=== PATIENT | male | born 1990 | race Caucasian/White ===

== ENCOUNTER 2020-03-01 10:09 | Emergency (ER) | payer BC, SELFPAY ==
[2020-03-01 10:11] VITALS: BP 148/100; PULSE 86; RESP 17; TEMP 36.8; O2SAT 100; BMI 22.4
--- NOTE | 2020-03-01 11:09 | HMH.EDWNDL ---
ED Disposition Clinical Impression: Abscess, Abscess of finger of right hand Disposition: Home, Self-Care Condition on Discharge: Good Instructions: DI for Laceration Repair Prescriptions: clindamycin HCL [Clindamycin HCl 300mg Cap] 300 mg PO Q6 10 Days #40 cap Prescription Printed Referrals: Ziyad Burton JR, MD [Primary Care Provider] - - Critical Care Critical Care Time: No Attestation: On 03/01/20, the high probability of a clinically significant, sudden or life threatening deterioration of the following system(s) required my full and direct attention, intervention and personal management. The time I documented below is in addition to time spent performing reported procedures but includes the following listed in this critical care notation. Medical Decision Making - Medical Records Medical records reviewed: Yes: I reviewed the patient's medical records. - Chas Inquiry Pt receiving controlled substance: No Vital Signs: 03/01/20 10:11 Temperature 98.2 F Temperature Source Oral Pulse Rate [Right] 86 Respiratory Rate 17 Blood Pressure [Right Arm] 148/100 H Blood Pressure Mean [Right Arm] 116 02 Sat by Pulse Oximetry 100 Wound/Laceration HPI - General Chief Complaint: Wound/Laceration Stated Complaint: right ring finger Time Seen by Provider: 03/01/20 11:10 Mode of Arrival: Ambulatory Source of Information: Patient Limitations: No Limitations Description of Symptoms (Recalled from ER Triage Doc. by RN): Wound to the right ring finger x1 week, states it has been draining and increased pain for the past few days. - History of Present Illness HPI narrative: 29-year-old male comes with an abscess on his right index finger. Patient states that it started about 2 to 3 days ago and has swollen. Patient denies any other symptoms. He does state the pain is about 2 out of 10 classifies the pain as a pressure-like sensation there are no alleviating factors exacerbating factors include any sort of movement. Patient denies any fever shakes or chills. Patient denies any nausea or vomiting. - Related Data Previous Rx's Medication Instructions Recorded clindamycin HCL [Clindamycin HCl 300 mg PO Q6 10 Days #40 cap 03/01/20 300mg Cap] Allergies Allergy/AdvReac Type Severity Reaction Status Date / Time No Known Allergies Allergy Unverified 07/09/17 15:17 [facility] History - Hepatitis A Screen Drug use history?: No High risk sexual behaviors?: No History of sexually transmitted infection?: No Currently employed?: No Childcare worker?: No Do you have indoor plumbing?: Yes Do you have electricity?: Yes Attestation statement:: This patient has been screened for Hepatitis A risk factors. I have reviewed the patient's past medical history: Yes ROS Obtained: Yes All systems reviewed & no additional complaints - Constitutional Constitutional: Reports system reviewed and no additional complaints, except as docu - Eyes Eyes: Reports system reviewed and no additional complaints, except as docu - ENT Ears, Nose, Mouth, and Throat: Reports system reviewed and no additional complaints, except as docu - Cardiovascular Cardiovascular: Reports system reviewed and no additional complaints, except as docu - Respiratory Respiratory: Yes system reviewed and no additional complaints, except as docu - Gastrointestinal Gastrointestingal: Reports: system reviewed and no additional complaints, except as docu - Genitourinary Male Genitourinary: Reports system reviewed and no additional complaints, except as docu - Musculoskeletal Musculoskeletal: Reports system reviewed and no additional complaints, except as docu - Integumentary/Breasts Skin/Breast: Reports system reviewed and no additional complaints, except as docu - Neurologic Neurologic: Reports system reviewed and no additional complaints, except as docu - Endocrine Endocrine: Reports system reviewed and no additiona
[2020-03-01 11:23] VITALS: BP 127/80; PULSE 70; RESP 16; TEMP 36.8; O2SAT 100
== END 2020-03-01 11:24 | disposition home or self-care (01) ==
PROVIDERS: Emergency Provider Family Medicine; PCP Pediatrics
DX: L02.511 Cutaneous abscess of right hand (principal)
CPT/HCPCS: 10060; 99282

== ENCOUNTER 2020-05-26 13:20 | Inpatient (IN) | payer BC, SELFPAY ==
[2020-05-26] VITALS (14 sets, daily range): BP systolic 100–169; BP diastolic 73–105; PULSE 78–135; RESP 16–22; TEMP 36.6–37; O2SAT 92–98; BMI 21.7; BMI 22.5
--- NOTE | 2020-05-26 13:44 | HMH.EDGENADL ---
ED Disposition Clinical Impression: Hyperglycemia, Dehydration, Nonadherence to medication Lower extremity weakness Qualifiers: Laterality: bilateral Qualified Code(s): R29.898 - Other symptoms and signs involving the musculoskeletal system Disposition: Admitted As Inpatient Condition on Discharge: Good - Critical Care Critical Care Time: No Attestation: On 05/26/20, the high probability of a clinically significant, sudden or life threatening deterioration of the following system(s) required my full and direct attention, intervention and personal management. The time I documented below is in addition to time spent performing reported procedures but includes the following listed in this critical care notation. Medical Decision Making - Medical Records Medical records reviewed: Yes: I reviewed the patient's medical records. - Chas Inquiry Pt receiving controlled substance: No Vital Signs: 05/26/20 13:21 05/26/20 13:50 05/26/20 14:30 Temperature 98.6 F Temperature Source Oral Pulse Rate [Left Radial] 135 H 113 H 116 H Respiratory Rate 18 18 20 Blood Pressure [Right Arm] 125/84 132/90 159/98 H Blood Pressure Mean [Right Arm] 97 104 118 Blood Pressure Source [Right Arm] Automatic Cuff Automatic Cuff Blood Pressure Position [Right Arm] Sitting Sitting Sitting 02 Sat by Pulse Oximetry 95 92 L 96 Oxygen Delivery Method Room Air Room Air 05/26/20 15:47 Temperature Temperature Source Pulse Rate [Left Radial] 109 H Respiratory Rate 22 Blood Pressure [Right Arm] 133/73 Blood Pressure Mean [Right Arm] 93 Blood Pressure Source [Right Arm] Automatic Cuff Blood Pressure Position [Right Arm] Sitting 02 Sat by Pulse Oximetry 94 L Oxygen Delivery Method Room Air - Lab Data Lab results reviewed: Yes: I reviewed the patient's lab results. Lab Results 05/26/20 13:27: WBC 8.7, RBC 5.01, Hgb 14.4, Hct 45.6, MCV 91.0, MCH 28.7, MCHC 31.6 L, RDW 12.7, Plt Count 416, MPV 8.3, Neut % (Auto) 70.6, Lymph % (Auto) 23.2, Heard % (Auto) 4.9, Eos % (Auto) 0.8, Baso % (Auto) 0.4, Neut # (Auto) 6.1, Lymph # (Auto) 2.0, Heard # (Auto) 0.4, Eos # (Auto) 0.1, Baso # (Auto) 0.0 05/26/20 13:27: Sodium 135 L, Potassium 4.0, Chloride 95 L, Carbon Dioxide 15 L, Anion Gap 29.0 H, BUN 18, Creatinine 1.20, Estimated Creat Clear 93, Estimated GFR 72, Est GFR ( Amer) 87, Glucose 474 H*, Calcium 10.1, Total Bilirubin 1.0, AST 31, ALT 23, Alkaline Phosphatase 196 H, Total Protein 7.8, Albumin 4.5, Globulin 3.3 H, Albumin/Globulin Ratio 1.4 05/26/20 13:27: SARS-CoV-2 IgG Ab (Rapid) Negative, SARS-CoV-2 IgM Ab (Rapid) Negative 05/26/20 13:57: Acetone Level Small 05/26/20 14:15: Specimen Source Left radial, O2 % room air, ABG pH 7.43, ABG pCO2 17.9 L, ABG pO2 121.2 H, ABG HCO3 11.6 L, ABG Total CO2 12.2 L, ABG O2 Saturation 98, ABG Base Excess -12.7 L, Jimmie Test Acceptable Result diagrams: 05/26/20 13:27 05/26/20 13:27 Orders (Tests/Meds): ED MEDICATIONS Generic Name Dose Route Start Last Admin Trade Name Freq PRN Reason Stop Dose Admin Insulin Human Regular 100 unit 101 mls @ 4.04 mls/hr 05/26/20 14:30 05/26/20 14:40 / Sodium Chloride IV 06/25/20 14:29 4.04 mls/hr .Q25H LENA Administration Protocol 4 UNIT/HR Discontinued Medications Generic Name Dose Route Start Last Admin Trade Name Freq PRN Reason Stop Dose Admin Sodium Chloride 1,000 mls @ 999 mls/hr 05/26/20 13:45 05/26/20 14:40 Sod Chlor 0.9% 1000ml Bag IV 05/26/20 14:45 999 mls/hr .Q1H1M LENA Administration Insulin Human Regular 10 unit 05/26/20 14:13 05/26/20 14:24 Insulin Human Regular 100 Units/Ml 10ml Vial IVP 05/26/20 14:14 Not Given ONCE ONE Ketorolac Tromethamine 30 mg 05/26/20 15:27 05/26/20 15:28 Ketorolac 30mg/Ml Vial IV 05/26/20 15:28 30 mg ONCE ONE Administration Ondansetron HCl 4 mg 05/26/20 13:42 05/26/20 14:40 Ondansetron 4mg/2ml Vial IV 05/26/20 13:43 4 mg ONCE ONE Administration
[2020-05-26 14:01] LABS: Basophils % 0.4 % (0.1-2.0); Eosinophils # 0.1 K/mm3 (0.0-0.4); Eosinophils % 0.8 % (0.1-12.0); Hematocrit 45.6 % (42.0-52.0); Hemoglobin 14.4 g/dL (14.1-18.0); Lymphocytes % 23.2 % (10-50); Mean Corpuscular HGB Conc 31.6 g/dL (31.8-35.4); Mean Corpuscular Hemoglobin 28.7 pg (27.0-31.2); Mean Platelet Volume 8.3 fl (7.4-10.4); Monocytes # 0.4 K/mm3 (0.1-1.0); Monocytes % 4.9 % (1.7-9.3); Neutrophils # 6.1 K/mm3 (1.8-7.8); Neutrophils % 70.6 % (37.0-80.0); Platelet Count 416 K/mm3 (142-424); Red Blood Count 5.01 M/mm3 (4.60-6.20); Red Cell Distribution Width 12.7 % (11.5-17.5); White Blood Count 8.7 K/mm3 (4.8-10.8)
[2020-05-26 14:05] LABS: Alanine Aminotransferase 23 U/L (12-78); Albumin Level 4.5 g/dl (3.5-5.0); Albumin/Globulin Ratio 1.4 (1.1-1.8); Alkaline Phosphatase 196 U/L (38-126); Aspartate Amino Transferase 31 U/L (17-59); Blood Urea Nitrogen 18 mg/dl (9-20); Calcium 10.1 mg/dl (8.4-10.2); Carbon Dioxide 15 mmol/L (22.0-30.0); Chloride 95 mmol/L (98-107); Creatinine Clearance Estimated 93 mL/min (50-200); Estimated Glomerular Filt Rate 72 ml/min (>60); GFR (African American) 87 ML/MIN (>60); Globulin 3.3 g/dL (1.3-3.2); Sodium 135 mmol/L (136-145); Total Protein,Serum 7.8 g/dl (6.3-8.2)
[2020-05-26 14:09] LABS: Glucose 474 mg/dl (74-100)
[2020-05-26 14:27] LABS: Coronavirus 19 IgG Antibody Negative (Negative); Coronavirus 19 IgM Antibody Negative (Negative)
[2020-05-26 14:47] LABS: Acetone, Serum (Rapid) Small (None Detect)
[2020-05-26 15:03] LABS: ABG Base Excess -12.7 mmol/L (-2.4-2.3); ABG HCO3 11.6 mmhg (22.0-26.0); ABG Oxygen Saturation 98 % (90-100); ABG PH 7.43 mmol/L (7.35-7.45); ABG PO2 121.2 mmhg (80-100); ABG TCO2 12.2 mmhg (23-27)
[2020-05-26 15:05] LABS: Allen's Test Acceptable; Oxygen room air %; Source Left Radial
[2020-05-26 15:06] LABS: ABG PCO2 17.9 mmhg (35.0-45.0)
--- NOTE | 2020-05-26 15:15 | PC.NURSE ---
Dr Hanson paged , to call back when out of room.
--- NOTE | 2020-05-26 15:35 | PC.NURSE ---
Call placed to [facility] for Dr Vang
--- NOTE | 2020-05-26 15:46 | PC.NURSE ---
placed call to [facility], awaiting Neurologist Dr Cadet
--- NOTE | 2020-05-26 16:35 | PC.NURSE ---
Dr Crooks spoke with Dr Osborne, he is to admit pt.
[2020-05-26 16:37] LABS: Microscopic, Urine URINE MICROSCOPIC (MICROSCOPIC)
[2020-05-26 16:41] LABS: Appearance,Urine CLEAR (Clear); Blood, Urine Negative (Negative); Color,Urine YELLOW (Yellow); Glucose,Urine (UA) 2+ (Negative); Ketones,Urine 3+ (Negative); Leukocyte Esterase,Urine Negative (Negative); Nitrate,Urine Negative (Negative); PH,Urine 5.5 (5.0-8.5); Protein,Urine Negative (Negative); Specific Gravity, Urine 1.025 (1.005-1.030); Urobilinogen,Urine 0.2 EU/dl (0.2)
[2020-05-26 16:43] LABS: Bilirubin,Urine Negative (Negative)
[2020-05-26 16:51] LABS: RBC,Urine Occasional #/hpf (0-3); Squamous Epithelial Cell,Urine Occasional #/hpf (0-5)
[2020-05-26 16:53] LABS: Amphetamine/Metha Screen,Urine Negative ng/ml (<1000); Benzodiazepines Screen,Urine Negative ng/ml (<200)
[2020-05-26 16:54] LABS: Barbiturates Screen,Urine Negative ng/ml (<200)
[2020-05-26 16:55] LABS: Cocaine Screen,Urine Negative ng/ml (<300)
[2020-05-26 16:56] LABS: Methadone Screen,Urine Negative ng/ml (<300); Opiate Screen,Urine Negative ng/ml (<300)
[2020-05-26 16:57] LABS: Phencyclidine Screen,Urine Negative ng/ml (<25)
--- NOTE | 2020-05-26 18:00 | HMH.HP ---
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 He states it started last night. His fingerstick was high per EMS and patient admits to not taking his insulin today because he has some issues going on . Patient denies any recent falls or trauma. No recent illnesses including fevers, cough, vomiting, diarrhea. He denies any drug or alcohol use. When he had Guillain-Sampson? before he received plasmapheresis, but full therapy was not complete, for unclear reasons. This was at [facility]. Patient denies any headache or neck pain. No difficulty breathing. Above note per emergency department. Patient is extremely worried about the possibility of Guillain-Sampson? syndrome coming back because of some right hip pain and inability to move his lower extremities. Exam in the emergency department was very inconsistent with Guillain-Sampson? and he has no issues with respiratory status. He follows with Dr. Dusty Burton in [place] since moving back to [place] 10 months ago. Found to have criteria for DKA in the ER and admitted to the stepdown unit for DKA therapy. [facility] History I have reviewed the patient's past medical history: Yes Medical History: Reports:: Diabetes Mellitus Type 1 (For 16 years) *Have you ever received a pneumonia vaccine?: No *Have you received a flu vaccine this season?: No Other Medical History: Reports: Other (Guillain-Sampson?) - *Social History Last grade of school completed: High school graduate Smoking Status: Current every day smoker Alcohol Intake Frequency:: a few times a month Substance Use Type: marijuana Last Used Substance: hours (ago) *Occupational Status:: other *Travel in the last 8 weeks: None Family Hx:: Unable to obtain Review of Systems - Review of Systems Review of systems:: pertinent systems reviewed and negative unless documented below Meds Home Medications Medication Instructions Recorded Confirmed Type Insulin Regular, Human [Humulin R] 1 units SQ NEEDED PRN 05/26/20 05/26/20 History Allergies Allergy/AdvReac Type Severity Reaction Status Date / Time No Known Allergies Allergy Unverified 07/09/17 15:17 Exam Vital signs and Labs for Last 24 Hours: Temp Pulse Resp BP Pulse Ox 98 F 78 16 138/78 96 05/26/20 17:04 05/26/20 17:04 05/26/20 17:04 05/26/20 17:04 05/26/20 16:30 Laboratory Results - last 24 hr 05/26/20 13:27: WBC 8.7, RBC 5.01, Hgb 14.4, Hct 45.6, MCV 91.0, MCH 28.7, MCHC 31.6 L, RDW 12.7, Plt Count 416, MPV 8.3, Neut % (Auto) 70.6, Lymph % (Auto) 23.2, [place] % (Auto) 4.9, Eos % (Auto) 0.8, Baso % (Auto) 0.4, Neut # (Auto) 6.1, Lymph # (Auto) 2.0, [place] # (Auto) 0.4, Eos # (Auto) 0.1, Baso # (Auto) 0.0 05/26/20 13:27: Sodium 135 L, Potassium 4.0, Chloride 95 L, Carbon Dioxide 15 L, Anion Gap 29.0 H, BUN 18, Creatinine 1.20, Estimated Creat Clear 93, Estimated GFR 72, Est GFR ( Amer) 87, Glucose 474 H*, Calcium 10.1, Total Bilirubin 1.0, AST 31, ALT 23, Alkaline Phosphatase 196 H, Total Protein 7.8, Albumin 4.5, Globulin 3.3 H, Albumin/Globulin Ratio 1.4 05/26/20 13:27: SARS-CoV-2 IgG Ab (Rapid) Negative, SARS-CoV-2 IgM Ab (Rapid) Negative 05/26/20 13:57: Acetone Level Small 05/26/20 14:15: Specimen Source Left radial, O2 % room air, ABG pH 7.43, ABG pCO2 17.9 L, ABG pO2 121.2 H, ABG HCO3 11.6 L, ABG Total CO2 12.2 L, ABG O2 Saturation 98, ABG Base Excess -12.7 L, Jimmie Test Acceptable 05/26/20 16:30: Urine Opiates Screen Negative, Urine Methadone Screen Negative, Ur Barbituates Screen Negative, Ur Phencyclidine Scrn Negative, Ur Amphetamines Screen Negative, U Benzodiazepines Scrn Negative, Urine Cocaine Screen Negative, U Marijuana (THC) Screen TNP 05/26/20
[2020-05-26 18:14] LABS: Chloride 102 mmol/L (98-107); Sodium 138 mmol/L (136-145)
[2020-05-26 18:15] LABS: Potassium 3.8 mmoL/L (3.5-5.1)
[2020-05-26 18:17] LABS: Acetone, Serum (Rapid) Large (None Detect)
[2020-05-26 18:18] LABS: Anion Gap 21.8 mEq/L (5-15); Blood Urea Nitrogen 17 mg/dl (9-20); Calcium 9.4 mg/dl (8.4-10.2); Carbon Dioxide 18 mmol/L (22.0-30.0); Creatinine Clearance Estimated 93 mL/min (50-200); Estimated Glomerular Filt Rate 72 ml/min (>60); GFR (African American) 87 ML/MIN (>60); Glucose 184 mg/dl (74-100)
--- NOTE | 2020-05-26 19:13 | XR_ITS ---
PROCEDURE: XR HIP LT 2-3V W/PELVIS CLINICAL INDICATION: pain COMPARISON: CR XR HIP RT 2-3V W/PELVIS from 05/26/2020 FINDINGS: No fracture or dislocation is evident. No significant degenerative change. No lytic or blastic change. Unremarkable soft tissues. IMPRESSION: Negative left hip Dictated by: Jimmie Herrera MD 05/27/2020 05:16 Jimmie Herrera MD in [facility] 05/27/2020 05:16
--- NOTE | 2020-05-26 19:13 | XR_ITS ---
PROCEDURE: XR HIP RT 2-3V W/PELVIS CLINICAL INDICATION: pain COMPARISON: No exams were available for comparison FINDINGS: No fracture or dislocation is evident. No significant degenerative change. No lytic or blastic change. Unremarkable soft tissues. Small sclerotic focus is present in the left superior pubic ramus medially and may be due to small bone island. IMPRESSION: No acute findings. Dictated by: Jimmie Herrera MD 05/27/2020 05:17 Jimmie Herrera MD in [facility] 05/27/2020 05:17
--- NOTE | 2020-05-26 19:20 | XR_ITS ---
PROCEDURE: XR LUMBAR SPINE 2-3V CLINICAL INDICATION: pain in hips Pain COMPARISON: No exams were available for comparison FINDINGS: No fracture or dislocation. No lytic or blastic change. There is normal mineralization. The disc spaces are well-preserved. No significant degenerative/arthritic changes. No erosive changes evident. Other findings:Minimal lumbar curvature convex left possibly positional. IMPRESSION: Minimal lumbar curvature otherwise negative Dictated by: Jimmie Herrera MD 05/27/2020 05:04 Jimmie Herrera MD in [facility] 05/27/2020 05:04
--- NOTE | 2020-05-26 20:20 | PC.NURSE ---
This RN accompanied pt and radiology staff off floor for films.
--- NOTE | 2020-05-26 20:31 | PC.NURSE ---
patient off floor to CT.
--- NOTE | 2020-05-26 20:34 | PC.NURSE ---
PT IS RESTING IN BED. ALERT AND ORIENTED X4. DURING ADMISSION PT WAS ASKED WHAT BROUGHT HIM TO THE HOSPITAL. PT STATES HE HAS BEEN DOING REALLY WELL AT HOME AND WOKE UP THIS MORNING UNABLE TO WALK. PT WAS ABLE TO MANEUVER HIMSELF FROM STRETCHER TO BED W/O ASSISTANCE. PT WAS ABLE TO LIFT HIS OWN BLE WHILE SHIFTING OVER TO THE BED. INSULIN DRIP AT 4 UNITS/HR. LAST BLOOD SUGAR WAS 153. PT ATE 100% OF HIS DINNER AND STATED THAT WAS THE FIRST HE HAS ATE SINCE YESTERDAY. PT STATES THAT HE WAS LIVING IN [place] WITH HIS BIOLOGICAL MOM 10 MONTHS AGO WHEN HE WAS DIAGNOSED WITH GUILLAIN BARRE AND THEN MOVED BACK TO [place] WITH HIS SIGNIFICANT OTHER WHO HE HAS BEEN LIVING WITH FOR SEVERAL MONTHS. PT STATED THAT HIM AND HIS GIRLFRIEND JUST BROKE UP 4 DAYS AGO AND HE HAS BEEN LIVING IN THE SAME HOUSEHOLD EX GIRLFRIEND FOR THE LAST FEW DAYS WHILE SHE WAS NOT HOME BUT WHEN SHE COMES HOME HE HAS BEEN STAYING IN HIS CAR. PT STATED HE REALLY DOES NOT HAVE ANY FAMILY. PT HAS AN ADOPTED FAMILY BUT ACCORDING TO PT HIS ADOPTIVE PARENTS AND NOW HAVE FAMILIES OF THEIR OWN AND HE HAS NOT SPOKE TO THEM IN SOMETIME. PT STATES HE IS USUALLY REALLY HEALTHY OTHER THAN HE GOT DIAGNOSED AT A VERY YOUNG AGE WITH TYPE 1 DIABETES AND HE HAS DONE A REALLY DECENT JOB AT KEEPING IT UNDER CONTROL. PT STATES HIS LAST BOWEL MOVEMENT WAS YESTERDAY AND HE ALWAYS HAS LOOSE STOOLS. LUNG SOUNDS CLEAR. ABDOMEN SOFT/ NON TENDER WITH HYPERACTIVE BOWEL SOUNDS. PT STATES HE DOES NOT HAVE ANY ISSUES WITH URINATING. SKIN W/D/I WITH MULTIPLE TATTOOS NOTED. SINUS TACH ON THE MONITOR. REPORT HANDOFF TO CHIQUIS QUIROZ RN.
--- NOTE | 2020-05-26 20:47 | PC.NURSE ---
patient up to floor from CT.
[2020-05-26 21:46] LABS: Chloride 105 mmol/L (98-107); Sodium 139 mmol/L (136-145)
[2020-05-26 21:47] LABS: Potassium 3.5 mmoL/L (3.5-5.1)
[2020-05-26 21:50] LABS: Anion Gap 13.5 mEq/L (5-15); Blood Urea Nitrogen 19 mg/dl (9-20); Carbon Dioxide 24 mmol/L (22.0-30.0); Creatinine Clearance Estimated 97 mL/min (50-200); Estimated Glomerular Filt Rate 72 ml/min (>60); GFR (African American) 87 ML/MIN (>60); Glucose 100 mg/dl (74-100)
--- NOTE | 2020-05-26 22:23 | PC.NURSE ---
[address] PT AWAKE AND WATCHING TV. NO OTHER NEEDS VOICED. ICE WATER FILLED.
[2020-05-26 23:55] LABS: POC Glucose,Bedside 159 (70-110)
[2020-05-26 23:55] LABS: POC Glucose,Bedside 114 (70-110)
[2020-05-26 23:55] LABS: POC Glucose,Bedside 153 (70-110)
[2020-05-26 23:55] LABS: POC Glucose,Bedside 112 (70-110)
[2020-05-27] VITALS (10 sets, daily range): BP systolic 98–153; BP diastolic 50–78; PULSE 72–112; RESP 15–20; TEMP 36.4–37; O2SAT 95–100; BMI 22.6
[2020-05-27 01:45] LABS: Anion Gap 13.9 mEq/L (5-15); Blood Urea Nitrogen 16 mg/dl (9-20); Calcium 8.5 mg/dl (8.4-10.2); Carbon Dioxide 23 mmol/L (22.0-30.0); Chloride 106 mmol/L (98-107); Creatinine Clearance Estimated 106 mL/min (50-200); Estimated Glomerular Filt Rate 79 ml/min (>60); GFR (African American) 96 ML/MIN (>60); Glucose 161 mg/dl (74-100); Potassium 3.9 mmoL/L (3.5-5.1); Sodium 139 mmol/L (136-145)
[2020-05-27 02:47] LABS: POC Glucose,Bedside 118 (70-110)
[2020-05-27 02:47] LABS: POC Glucose,Bedside 189 (70-110)
--- NOTE | 2020-05-27 03:48 | PC.NURSE ---
Pt is A&Ox4 and has turned self in the bed several times this shift. Pt has c/o pain to r hip 1x, pt was offered Tylenol but refused. Pt has had not further c/o pain. Lungs CTA. ABD is soft, non-tender and active BS are noted. Pt moves lower extremities by hand when repositioning, pt states at times I think I can feel stings down them but not sure . BLE flaccid, as noted from admission. Peripheral pulses WNL, no edema noted t/o limbs. Skin intact, some very small scabs noted t/o body. 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 Pt refused TEDS. NSR and Sinus tach noted on telemetry. Pt has been voiding per urinal without difficultly. Insulin gtt stopped and Lantus SQ administered this shift per Dr. Osborne. As well as updating FS to ACHS with Medium Intensity SSI ([facility] Spot check at 0230 revealed FS 189, Dr. Osborne aware and no new orders. Pt has rested well t/o the night. VSS, call light within reach, and will continue to monitor.
[2020-05-27 06:07] LABS: Chloride 103 mmol/L (98-107); Sodium 134 mmol/L (136-145)
[2020-05-27 06:08] LABS: Potassium 4.5 mmoL/L (3.5-5.1)
[2020-05-27 06:11] LABS: Anion Gap 17.5 mEq/L (5-15); Blood Urea Nitrogen 15 mg/dl (9-20); Calcium 8.5 mg/dl (8.4-10.2); Carbon Dioxide 18 mmol/L (22.0-30.0); Creatinine Clearance Estimated 106 mL/min (50-200); Estimated Glomerular Filt Rate 79 ml/min (>60); GFR (African American) 96 ML/MIN (>60); Glucose 331 mg/dl (74-100)
[2020-05-27 06:42] LABS: Acetone, Serum (Rapid) Moderate (None Detect)
[2020-05-27 06:44] LABS: POC Glucose,Bedside 452 (70-110)
[2020-05-27 06:48] LABS: POC Glucose,Bedside 298 (70-110)
--- NOTE | 2020-05-27 07:36 | HMH.PHAVTE ---
[facility] Pharmacy VTE Monitoring - Patient Demographics Admission date: 05/26/20 Report Date: 05/27/20 Time: 07:36 Allergies/Adverse Reactions: Patient Allergies No Known Allergies Allergy (Unverified 07/09/17 15:17) Height: 1.83 m Weight: 75.92 kg Patient Problems: Current Active Problems Hyperglycemia (Acute) Dehydration (Acute) Nonadherence to medication (Acute) Lower extremity weakness (Acute) DKA, type 1 (Acute) Marijuana abuse, continuous (Acute) - VTE Risk Labs: VTE Related Lab Results Hgb 14.4 g/dL (14.1-18.0) 05/26/20 13:27 Hct 45.6 % (42.0-52.0) 05/26/20 13:27 Plt Count 416 K/mm3 (142-424) 05/26/20 13:27 BUN 15 mg/dl (9-20) 05/27/20 05:30 Creatinine 1.10 mg/dl (0.66-1.25) 05/27/20 05:30 Estimated Creat Clear 106 mL/min (50-200) 05/27/20 05:30 VTE Score: 1 - Prophylaxis VTE Prophylaxis Ordered?: Yes Types of VTE Prophylaxis: TEDS Knee High Location of Applied Device: Bilateral Lower Extremeties
--- NOTE | 2020-05-27 07:36 | HMH.PHAINT ---
MEDICATION RECONCILIATION COMPLETED ON PATIENT USING EXTERNAL FILL HISTORY FROM PHARMACY. -NGHIA MCKEON, HENRYD
--- NOTE | 2020-05-27 09:01 | FL_ITS ---
PROCEDURE: FL GUIDED LUMBAR PUNCTURE LP CLINICAL INDICATION: flacid lower extremities, Hx of G-B 10 mo ago, recurring Sx? COMPARISON: No exams were available for comparison TECHNIQUE: Informed consent was obtained prior to procedure. Under local anesthesia with 1% lidocaine and under fluoroscopic guidance a 20-gauge spinal needle was inserted into the L4-5 interspace. Approximately 14 cc of clear CSF was obtained and sent to laboratory for analysis. The patient tolerated the procedure well without evidence of immediate complication IMPRESSION: Successful fluoroscopy guided lumbar puncture without complications. Dictated by: Jimmie Herrera MD 05/27/2020 12:45 Jimmie Herrera MD in [facility] 05/27/2020 12:45
--- NOTE | 2020-05-27 09:06 | PC.NURSE ---
legs noted to be flaccid with movement. does jerk back and respond with object pushed down food
--- NOTE | 2020-05-27 09:39 | PC.NURSE ---
patient noted to have positive reflexes in legs. However, patient is unable to move legs and states they have no feeling. only pain noted is in hips and back
[2020-05-27 09:50] LABS: Chloride 103 mmol/L (98-107); Potassium 3.8 mmoL/L (3.5-5.1); Sodium 138 mmol/L (136-145)
--- NOTE | 2020-05-27 09:52 | PC.NURSE ---
spoke with dr augustin about lumbar puncture. radiology had called with questions. stated it was okay to order the cbc, and pt/ptt. also stated he did want the opening pressure. also stated with the lumbar puncture they are looking for gullian-barre. so he wanted the protein, glucose, and cell count on the csf.
[2020-05-27 09:53] LABS: Anion Gap 11.8 mEq/L (5-15); Blood Urea Nitrogen 14 mg/dl (9-20); Calcium 8.8 mg/dl (8.4-10.2); Carbon Dioxide 27 mmol/L (22.0-30.0); Creatinine Clearance Estimated 106 mL/min (50-200); Estimated Glomerular Filt Rate 79 ml/min (>60); GFR (African American) 96 ML/MIN (>60); Glucose 180 mg/dl (74-100)
[2020-05-27 10:02] LABS: Basophils % 0.4 % (0.1-2.0); Eosinophils # 0.1 K/mm3 (0.0-0.4); Eosinophils % 1.5 % (0.1-12.0); Lymphocytes # 2.4 K/mm3 (0.7-4.5); Lymphocytes % 29.2 % (10-50); Mean Corpuscular HGB Conc 32.9 g/dL (31.8-35.4); Mean Corpuscular Hemoglobin 29.5 pg (27.0-31.2); Mean Corpuscular Volume 89.8 fl (80-94); Mean Platelet Volume 8.3 fl (7.4-10.4); Monocytes # 0.3 K/mm3 (0.1-1.0); Neutrophils # 5.4 K/mm3 (1.8-7.8); Neutrophils % 64.9 % (37.0-80.0); Platelet Count 312 K/mm3 (142-424); Red Blood Count 4.34 M/mm3 (4.60-6.20); Red Cell Distribution Width 13.4 % (11.5-17.5); White Blood Count 8.3 K/mm3 (4.8-10.8)
[2020-05-27 10:18] LABS: Hemoglobin 12.8 g/dL (14.1-18.0)
[2020-05-27 10:22] LABS: Benzodiazepines Screen,Urine Negative ng/ml (<200)
[2020-05-27 10:23] LABS: Amphetamine/Metha Screen,Urine Negative ng/ml (<1000); Barbiturates Screen,Urine Negative ng/ml (<200)
[2020-05-27 10:24] LABS: Cannabinoid Screen,Urine Negative ng/ml (<50)
[2020-05-27 10:28] LABS: INR 0.98 (0.9-1.1); Prothrombin Time 10.9 seconds (9.4-11.8)
--- NOTE | 2020-05-27 11:06 | PC.NURSE ---
PATIENT OFF FLOOR FOR LUMBAR PUNCTURE
[2020-05-27 11:19] LABS: Cocaine Screen,Urine Negative ng/ml (<300)
[2020-05-27 11:20] LABS: Methadone Screen,Urine Negative ng/ml (<300); Opiate Screen,Urine Negative ng/ml (<300)
[2020-05-27 11:21] LABS: Phencyclidine Screen,Urine Negative ng/ml (<25)
--- NOTE | 2020-05-27 11:39 | HMH.PTEV ---
Physical Therapy Evaluation Rehab PT IP Evaluation Start: 05/27/20 09:01 Freq: ONCE Status: Active Protocol: Document 05/27/20 11:33 PHORRORY (Rec: 05/27/20 11:39 PHORNE [id number]) Subjective/History History History 29 yowm adm to [facility] with inability to feel/move his legs. 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 He is currently homeless. Subjective Subjective He reports pain in B hips and LB this am. Rehab PT IP Eval Objective Appearance Patient Behavior Appropriate Patient Orientation Person,Place,Time Difficulty following instructions none Speech Pattern Clear Ambulation Patient Able to Ambulate No Balance Ability to Arise Unable Sitting Balance Leans or slides in chair Dynamic Sitting Balance Ability Poor Transfers Bed Transfer Ability Maximum x 1 (75% assist) ROM All Extremities PT ROM Status WFL MMT LLE PT MMT ABN Abnormal MMT Grade 0/5 RLE PT MMT ABN Abnormal MMT Grade 0/5 Rehab PT IP prob,goals,plan Problems Date of Evaluation: 05/27/20 PT IP Problems Bed Mobility,Transfers Rehab Potential Rehab Potential Fair Plan PT Intervention Plan Bed Mobility,Transfers,Balance ,Therapeutic Exercise PT Plan Frequency Daily Duration LOS Discharge Goals Bed Transfer Ability Moderate x 2 (50% assist) Discharge Plan PT Discharge Plan Pt will likely need rehab placement once medically stable. G -code Required No Eval Complexity Eval Charge Codes 08685 - High Complexity PHYSICIAN CERTIFICATION: I certify the specified therapy services for Sunny Vivar are required, authorized, and reviewed every 30 days.
--- NOTE | 2020-05-27 12:11 | PC.NURSE ---
zena rutherford was at bedside to do assessment on patient however he refused to talk at this time because of pain. dr. dao office called and relayed to them that patient has been crying in pain since return from lumbar puncture. only pain medication is to oxycodone/percocet 5mg q8h prn. they stated they would let him know
[2020-05-27 12:13] LABS: POC Glucose,Bedside 197 (70-110)
[2020-05-27 12:26] LABS: Glucose,CSF 137 mg/dl (40-70)
[2020-05-27 12:51] LABS: Appearance,CSF Clear (Clear); Red Blood Cell,CSF 0 cells/uL (0); Volume,CSF 13.25 mL; White Blood Cell,CSF 2 cells/uL (0-5)
--- NOTE | 2020-05-27 13:14 | PC.NURSE ---
called back to md office about patient pain and to report a notification, they stated they would have md call back
--- NOTE | 2020-05-27 13:18 | MR_ITS ---
PROCEDURE: MR LUMBAR SPINE WO/W CON CLINICAL INDICATION: back pain, flaccid leg paralysis COMPARISON: No exams were available for comparison TECHNIQUE: Standard multiplanar multiecho sequences are performed without contrast. 3-D MIP and myelographic images are also rendered and reviewed FINDINGS: Normal alignment. The spinal cord ends at the L1 level. No disc herniation significant disc bulge or significant degenerative change evident. No foraminal or canal stenosis. There is mild prominence of the epidural fat at the L5 and S1 level and in the sacral area. This is of questionable clinical significance. There is a 4 mm T2 hyperintensity within the T12 vertebral body which is nonspecific and may be due to small hemangioma. No enhancing lesions are evident. IMPRESSION: 1. Essentially negative MRI of the lumbar spine 2. Prominent epidural fat at the L5 and sacral region of questionable clinical significance. Dictated by: Jimmie Herrera MD 05/27/2020 18:19 Jimmie Herrera MD in [facility] 05/27/2020 18:19
--- NOTE | 2020-05-27 13:18 | PC.NURSE ---
reported notification of patient csf protein. and relayed to md about patient pain. stated he would be placing orders in
--- NOTE | 2020-05-27 13:19 | HMH.ACPN2 ---
Internal Medicine - PN: Subj *Date: 05/27/20 *Time: 13:19 Interval history: 29-year-old male who presented with worsening weakness in his legs and DKA yesterday to the emergency room. On interview this morning he was pleasant and appeared to be feeling better. Gap closed overnight and was transitioned to basal bolus regimen. Reviewed labs from this morning. States he is having worsening back pain and hip pain however. Denies shortness of breath or chest pain. Is unable to move his toes or feet on command. Denies loss of bladder or bowel function at this time however. Afebrile, no headache or change in vision. Exam Vital signs and Labs for Last 24 Hours: Temp Pulse Resp BP Pulse Ox 98.6 F 91 H 15 117/72 98 05/27/20 09:04 05/27/20 08:00 05/27/20 08:00 05/27/20 08:00 05/27/20 08:00 Laboratory Results - last 24 hr 05/26/20 13:27: WBC 8.7, RBC 5.01, Hgb 14.4, Hct 45.6, MCV 91.0, MCH 28.7, MCHC 31.6 L, RDW 12.7, Plt Count 416, MPV 8.3, Neut % (Auto) 70.6, Lymph % (Auto) 23.2, Grayson % (Auto) 4.9, Eos % (Auto) 0.8, Baso % (Auto) 0.4, Neut # (Auto) 6.1, Lymph # (Auto) 2.0, Grayson # (Auto) 0.4, Eos # (Auto) 0.1, Baso # (Auto) 0.0 05/26/20 13:27: Sodium 135 L, Potassium 4.0, Chloride 95 L, Carbon Dioxide 15 L, Anion Gap 29.0 H, BUN 18, Creatinine 1.20, Estimated Creat Clear 93, Estimated GFR 72, Est GFR ( Amer) 87, Glucose 474 H*, Calcium 10.1, Total Bilirubin 1.0, AST 31, ALT 23, Alkaline Phosphatase 196 H, Total Protein 7.8, Albumin 4.5, Globulin 3.3 H, Albumin/Globulin Ratio 1.4 05/26/20 13:27: SARS-CoV-2 IgG Ab (Rapid) Negative, SARS-CoV-2 IgM Ab (Rapid) Negative 05/26/20 13:57: Acetone Level Small 05/26/20 14:15: Specimen Source Left radial, O2 % room air, ABG pH 7.43, ABG pCO2 17.9 L, ABG pO2 121.2 H, ABG HCO3 11.6 L, ABG Total CO2 12.2 L, ABG O2 Saturation 98, ABG Base Excess -12.7 L, Jimmie Test Acceptable 05/26/20 15:24: POC Glucose 452 H* 05/26/20 16:30: Urine Opiates Screen Negative, Urine Methadone Screen Negative, Ur Barbituates Screen Negative, Ur Phencyclidine Scrn Negative, Ur Amphetamines Screen Negative, U Benzodiazepines Scrn Negative, Urine Cocaine Screen Negative, U Marijuana (THC) Screen TNP 05/26/20 16:30: Urine Color Yellow, Urine Appearance Clear, Urine pH 5.5, Ur Specific Odum 1.025, Urine Protein Negative, Urine Glucose (UA) 2+, Urine Ketones 3+, Urine Blood Negative, Urine Nitrate Negative, Urine Bilirubin Negative, Urine Urobilinogen 0.2, Ur Leukocyte Esterase Negative, Urine RBC Occasional, Urine WBC None, Ur Squamous Epith Cells Occasional, Urine Bacteria None 05/26/20 17:51: Sodium 138, Potassium 3.8, Chloride 102, Carbon Dioxide 18 L, Anion Gap 21.8 H, BUN 17, Creatinine 1.20, Estimated Creat Clear 93, Estimated GFR 72, Est GFR ( Amer) 87, Glucose 184 H D, Calcium 9.4, Acetone Level Large 05/26/20 18:02: POC Glucose 159 H 05/26/20 19:20: POC Glucose 153 H 05/26/20 21:07: POC Glucose 114 H 05/26/20 21:30: Sodium 139, Potassium 3.5, Chloride 105, Carbon Dioxide 24 D, Anion Gap 13.5, BUN 19, Creatinine 1.20, Estimated Creat Clear 97, Estimated GFR 72, Est GFR ( Amer) 87, Glucose 100 D, Calcium 9.0 05/26/20 22:09: POC Glucose 112 H 05/27/20 00:17: POC Glucose 118 H 05/27/20 01:25: Sodium 139, Potassium 3.9, Chloride 106, Carbon Dioxide 23, Anion Gap 13.9, BUN 16, Creatinine 1.10, Estimated Creat Clear 106, Estimated GFR 79, Est GFR ([facility] Amer) 96, Glucose 161 H D, Calcium 8.5 05/27/20 02:22: POC Glucose 189 H 05/27/20 05:30: Sodium 134 L, Potassium 4.5, Chloride 103, Carbon Dioxide 18 L D, Anion Gap 17.5 H, BUN 15, Creatinine 1.10, Estimated Creat Clear 106, Estimated GFR 79, Est [facility]) 96, Glucose 331 H D, Calcium 8.5, Acetone Level Moderate 05/27/20 05:52: POC Glucose 298 H 05/27/20 09:35: Sodium 138, Potassium 3.8, Chloride 103, Carbon Dioxide 27 D, Anion Gap 11.8, BUN 14, Creatinine 1.10, Estimated Creat Clear 106, Estimated GFR 79, Est GFR [facility]) 96, Glucose 180 H D, Calcium
--- NOTE | 2020-05-27 14:04 | XR_ITS ---
PROCEDURE: XR ORBIT BILATERAL MIN 4V CLINICAL INDICATION: ORBIT XRAY PRIOR TO MRI COMPARISON: No exams were available for comparison TECHNIQUE: AP views are obtained of the orbits with the patient looking up and down. FINDINGS: No radio opaque foreign bodies evident. There is mucosal thickening of the lateral wall the left maxillary sinus IMPRESSION: No radio opaque orbital foreign body identified. Dictated by: Jimmie Herrera MD 05/28/2020 23:28 Jimmie Herrera MD in [place] 05/28/2020 23:28
--- NOTE | 2020-05-27 14:11 | PC.NURSE ---
pt to MRI at this time.
[2020-05-27 14:24] LABS: Mononuclear WBCs,CSF 0 %; Polynuclear WBCs,CSF 0 %
--- NOTE | 2020-05-27 16:31 | PC.NURSE ---
took down percocet for patient and radiology was unable to stop mri at that time. will give to him once to floor.
--- NOTE | 2020-05-27 16:59 | PC.NURSE ---
zena rutherford aprn did come back to check with patient but he was down in mri at that time
--- NOTE | 2020-05-27 17:03 | PC.NURSE ---
relayed to md patient is crying in pain red faced and screaming. toradol did not seem to help earlier and oxycodone was just given. md stated he would place orders in
--- NOTE | 2020-05-27 17:19 | PC.NURSE ---
Spoke with [facility], sent face sheet. Still no bed.
--- NOTE | 2020-05-27 17:46 | PC.NURSE ---
patient currently under a lot of stress with ef girlfriend. stated he has been getting messages from her and family and stated he was afraid now because he would be homeless once things have resolved. helped patient with emotions, and educated to currently focus on the issue at hand. he would be in the hospital for a bit longer and health at this time was important. he agreed that he wanted to focus on the issues at hand and blocked the ex and her family so he could focus on getting better. will continue to monitor patient and physical and mental well being
[2020-05-27 18:00] LABS: POC Glucose,Bedside 301 (70-110)
[2020-05-27 18:07] LABS: Acetone, Serum (Rapid) Small (None Detect)
--- NOTE | 2020-05-27 18:12 | PC.NURSE ---
Addendum entered by Gaby Pacheco RN 05/27/20 18:13: still awaiting for bed at [facility] last call noted to have no beds Original Note: patient day has been rough. noted to have pain. still reflexes noted on extremities but patient can not feel or move lower extremities himself. rings out as needed. no drainage noted to lumbar puncture site. turns self in bed. vitals have been stable. pain noted in back. md aware. will continue to monitor.
--- NOTE | 2020-05-27 18:39 | XR_ITS ---
PROCEDURE: XR THORACIC SPINE 2V CLINICAL INDICATION: thoracic spine pain COMPARISON: MR MR LUMBAR SPINE WO/W CON from 05/27/2020 FINDINGS: No fracture or dislocation. No lytic or blastic change. There is normal mineralization. The joint spaces are well-preserved. No significant degenerative/arthritic changes. No erosive changes evident. Other findings:None. IMPRESSION: No acute findings. Dictated by: Jimmie Herrera MD 05/28/2020 07:18 Jimmie Herrera MD in [facility] 05/28/2020 07:18
[2020-05-27 18:43] LABS: Chloride 99 mmol/L (98-107); Potassium 3.6 mmoL/L (3.5-5.1); Sodium 136 mmol/L (136-145)
[2020-05-27 18:46] LABS: Anion Gap 12.6 mEq/L (5-15); Blood Urea Nitrogen 13 mg/dl (9-20); Calcium 8.8 mg/dl (8.4-10.2); Carbon Dioxide 28 mmol/L (22.0-30.0); Creatinine Clearance Estimated 117 mL/min (50-200); Estimated Glomerular Filt Rate 88 ml/min (>60); GFR (African American) 107 ML/MIN (>60); Glucose 291 mg/dl (74-100)
--- NOTE | 2020-05-27 19:58 | PC.NURSE ---
PT ARRIVED VIA W/C TO FLOOR FROM ED W/STAFF AT 1954.
[2020-05-27 21:56] LABS: Chloride 100 mmol/L (98-107); Potassium 3.4 mmoL/L (3.5-5.1); Sodium 138 mmol/L (136-145)
[2020-05-27 21:59] LABS: Anion Gap 9.4 mEq/L (5-15); Blood Urea Nitrogen 12 mg/dl (9-20); Calcium 8.9 mg/dl (8.4-10.2); Carbon Dioxide 32 mmol/L (22.0-30.0); Creatinine Clearance Estimated 117 mL/min (50-200); Estimated Glomerular Filt Rate 88 ml/min (>60); GFR (African American) 107 ML/MIN (>60); Glucose 158 mg/dl (74-100)
[2020-05-27 22:07] LABS: POC Glucose,Bedside 122 (70-110)
[2020-05-28] VITALS: PULSE 90
[2020-05-28 02:48] LABS: POC Glucose,Bedside 167 (70-110)
[2020-05-28 04:00] VITALS: BP 137/78; PULSE 70; PULSE 83; RESP 16; TEMP 36.6; O2SAT 97
[2020-05-28 05:50] VITALS: BMI 22.9
[2020-05-28 06:00] LABS: Basophils % 0.3 % (0.1-2.0); Eosinophils # 0.2 K/mm3 (0.0-0.4); Eosinophils % 2.3 % (0.1-12.0); Hematocrit 39.4 % (42.0-52.0); Hemoglobin 13.2 g/dL (14.1-18.0); Lymphocytes # 3.7 K/mm3 (0.7-4.5); Lymphocytes % 41.3 % (10-50); Mean Corpuscular HGB Conc 33.4 g/dL (31.8-35.4); Mean Corpuscular Hemoglobin 30.3 pg (27.0-31.2); Mean Corpuscular Volume 90.6 fl (80-94); Mean Platelet Volume 7.8 fl (7.4-10.4); Monocytes # 0.4 K/mm3 (0.1-1.0); Monocytes % 4.8 % (1.7-9.3); Neutrophils # 4.6 K/mm3 (1.8-7.8); Neutrophils % 51.4 % (37.0-80.0); Platelet Count 302 K/mm3 (142-424); Red Blood Count 4.34 M/mm3 (4.60-6.20); Red Cell Distribution Width 13.4 % (11.5-17.5); White Blood Count 8.9 K/mm3 (4.8-10.8)
[2020-05-28 06:21] LABS: Magnesium 1.6 mg/dl (1.6-2.3)
--- NOTE | 2020-05-28 06:33 | PC.NURSE ---
Pt is A&Ox4 and has turned self in bed well t/o this shift. Pt has c/o pain 1x and medicated per MAR with effectiveness noted. Lungs CTA, pt denies any SOA or dyspnea. Room air sats 95-98% t/o shift. ABD is soft, flat, and non-tender. Pt reports he thinks he needs to have a BM and put offered bedpan but pt refused stating, I'll let you know when I'm ready to go . Pt has had a good appetite this shift. Voiding clear, ylw urine per urinal. Pt reports he does feel the urge of when to go and no urine leakage noted. Pt refused TEDS. BLE flaccid and pt reports he can't feel anywhere on thighs or legs. Pulses +2, no edema noted. Some mild muscle tremors by touch, flexeril administered per MAR. VSS, call light within reach, will continue to monitor.
[2020-05-28 06:37] LABS: POC Glucose,Bedside 145 (70-110)
--- NOTE | 2020-05-28 06:39 | PC.NURSE ---
Keena from [facility] called, stating they can not take pt at this time, We should have another nurse coming in this upcoming shift and we'll call back to let you know . Naa at [facility] called stating no beds a this time, maybe in the afternoon.
[2020-05-28 08:00] VITALS: BP 140/81; PULSE 70; PULSE 88; RESP 17; TEMP 36.7; O2SAT 97
--- NOTE | 2020-05-28 08:42 | HMH.DCSUM ---
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 He states it started last night. His fingerstick was high per EMS and patient admits to not taking his insulin today because he has some issues going on . Patient denies any recent falls or trauma. No recent illnesses including fevers, cough, vomiting, diarrhea. He denies any drug or alcohol use. When he had Guillain-Sampson? before he received plasmapheresis, but full therapy was not complete, for unclear reasons. This was at [facility]. Patient denies any headache or neck pain. No difficulty breathing. Above note per emergency department. Patient is extremely worried about the possibility of Guillain-Sampson? syndrome coming back because of some right hip pain and inability to move his lower extremities. Exam in the emergency department was very inconsistent with Guillain-Sampson? and he has no issues with respiratory status. He follows with Dr. Dusty Burton in [place] since moving back to [place] 10 months ago. Found to have criteria for DKA in the ER and admitted to the stepdown unit for DKA therapy. Hospital Course Hospital Course: Patient was admitted to stepdown unit, insulin drip and DKA protocol was followed and acetone levels and glucose levels improved, patient felt much better and his vital signs improved with normalized tachycardia rates. Unfortunately his neurologic exam did not improve and over the next 24 hours exhibited loss of reflexes in his patellar, ankle areas and some muscle cramping with lots of hip and back pain. MRI of lumbar spine was done to rule out structural or myelitis type issues and his MRI of his L-spine was unremarkable. Patient was given opioid pain medicine and muscle relaxers because of his severe pain which improved his situation. 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 Given our lack of inpatient neurology services tertiary care centers were contacted and patient was accepted in transfer. He will be transferred there today when nursing staff is available at the [facility]. Objective Vital signs: Temp Pulse Resp BP Pulse Ox 98.1 F 88 17 140/81 97 05/28/20 08:00 05/28/20 08:00 05/28/20 08:00 05/28/20 08:00 05/28/20 08:00 no acute distress, average body habitus Comments: Multiple tattoos on hands, arms, all professionally done - *Routine HEENT Exam Head: Present: normocephalic Eye: Present: EOMI, PERRL ENT: Present: mucous membranes moist - *Routine Neck Exam Present: supple - *Routine Respiratory Exam Present: CTA bilaterally - *Routine Cardiovascular Exam Present: RRR - *Routine Abdominal Exam Present: soft, normoactive bowel sounds. Absent: tenderness - *Routine Extremities Exam Absent: cyanosis, clubbing, edema Comments: Muscle spasm and pain when passive range of motion in the thighs and calves - *Routine Skin Exam Present: warm. Absent: rash - *Routine Neurological Exam Present: alert, oriented X3, CN II-XII intact Patient able to move upper extremities well, able to flex his torso and abdominal muscles. Has very minimal movement of any musculature below the hips and has absent patellar and ankle reflexes. - Detailed Eye Exam Eyelids: Bilateral normal inspection Results Labs on day of discharge: Labs from last 24 hours 05/28/20 05/28/20 05/28/20 06:09 05:25 05:25 WBC 8.9 RBC 4.34 L Hgb 13.2 L Hct 39.4 L MCV 90.6 MCH 30.3 MCHC 33.4 RDW 13.4 Plt Count 302 MPV 7.
[2020-05-28 08:46] LABS: Hemoglobin A1C 9.9 % (4.0-6.0)
--- NOTE | 2020-05-28 09:15 | PC.NURSE ---
[facility] called stating at this time they still had know beds available
[2020-05-28 11:23] LABS: POC Glucose,Bedside 283 (70-110)
--- NOTE | 2020-05-28 11:56 | PC.NURSE ---
[facility] called back stating hospital had had some movement/discharges. they would possibly be able to get a bed today but would keep us updated
[2020-05-28 12:00] VITALS: BP 138/85; PULSE 80; PULSE 85; RESP 18; TEMP 36.8; O2SAT 99
[2020-05-28 15:20] LABS: Adenovirus,PCR Not Detected (NotDetected); Bordetella Pertussis Not Detected (NotDetected); Chlamydophila Pneumoniae, PCR Not Detected (NotDetected); Coronavirus 19, PCR Not Detected (NotDetected); Coronavirus 229E Not Detected (NotDetected); Coronavirus NL63 Not Detected (NotDetected); Coronavirus OC43 Not Detected (NotDetected); Coronovirus HKU1,PCR Not Detected (NotDetected); Human Metapneumovirus Not Detected (NotDetected); Influenza A, PCR Not Detected (NotDetected); Influenza AH1, 2009 Not Detected (NotDetected); Influenza AH1, PCR Not Detected (NotDetected); Influenza AH3,PCR Not Detected (NotDetected); Influenza B, PCR Not Detected (NotDetected); Mycoplasma Pneumoniae, PCR Not Detected (NotDetected); Parainfluenza 1, PCR Not Detected (NotDetected); Parainfluenza 2, PCR Not Detected (NotDetected); Parainfluenza 3, PCR Not Detected (NotDetected); Parainfluenza 4, PCR Not Detected (NotDetected); Respiratory Syncytial Virus Not Detected (NotDetected); Rhinovirus/Enterovirus Not Detected (NotDetected)
[2020-05-28 16:00] VITALS: PULSE 70
--- NOTE | 2020-05-28 16:22 | PC.NURSE ---
called and gave report to [facility] in [place]. awaiting for covid swab. once obtained will call ambulance patient in stable position
--- NOTE | 2020-05-28 16:53 | PC.NURSE ---
relayed to [facility] that patient covid was negative and ambulance was being called now
[2020-05-28 17:25] LABS: POC Glucose,Bedside 124 (70-110)
== END 2020-05-28 17:28 | disposition short-term general hospital (02) | DRG 638 ==
LOC: ER 16:39 → 2ND 16:50
PROVIDERS: Admitting Provider Internal Medicine Adolescent Medicine; Emergency Provider Emergency Medicine; PCP Pediatrics; Visit Provider Internal Medicine Adolescent Medicine
DX: E10.10 Type 1 diabetes mellitus with ketoacidosis without coma (principal); G61.0 Guillain-Barre syndrome; Z72.0 Tobacco use; T38.3X6A Underdosing of insulin and oral hypoglycemic [antidiabetic] drugs, initial encounter; Z91.128 Patient's intentional underdosing of medication regimen for other reason
CPT/HCPCS: 36415; 62270; 70200; 72070; 72100; 72158; 73502; 76376; 80048; 80053; 80305; 81001; 82009; 82803; 82945; 82962; 83036; 83735; 84155; 85025; 85610; 85730; 86328; 87581; 87633; 87798; 89051; 96365; 96367; 96375; 97140; 97163; 99284; A9576; J2405

== ENCOUNTER → 2022-05-16 13:34 | Outpatient (CLI) | payer BC, SELFPAY ==
[2022-05-16 18:31] LABS: Basophils # 0.1 K/mm3 (0-0.2); Basophils % 1.2 % (0.1-2.0); Eosinophils # 0.1 K/mm3 (0.0-0.4); Eosinophils % 1.8 % (0.1-12.0); Hematocrit 46.4 % (42.0-52.0); Hemoglobin 15.3 g/dL (14.1-18.0); Lymphocytes # 2.5 K/mm3 (0.7-4.5); Lymphocytes % 36.2 % (10-50); Mean Corpuscular HGB Conc 32.9 g/dL (31.8-35.4); Mean Corpuscular Hemoglobin 29.6 pg (27.0-31.2); Mean Corpuscular Volume 89.9 fl (80-94); Mean Platelet Volume 10.5 fl (7.4-10.4); Monocytes # 0.5 K/mm3 (0.1-1.0); Monocytes % 6.5 % (1.7-9.3); Neutrophils # 3.8 K/mm3 (1.8-7.8); Neutrophils % 54.4 % (37.0-80.0); Platelet Count 384 K/mm3 (142-424); Red Blood Count 5.17 M/mm3 (4.60-6.20); Red Cell Distribution Width 12.9 % (11.5-17.5); White Blood Count 6.9 K/mm3 (4.8-10.8)
[2022-05-16 19:28] LABS: Alanine Aminotransferase 31 U/L (12-78); Albumin Level 4.6 g/dl (3.5-5.0); Albumin/Globulin Ratio 1.4 (1.1-1.8); Alkaline Phosphatase 189 U/L (38-126); Anion Gap 20.2 mEq/L (5-15); Aspartate Amino Transferase 31 U/L (17-59); Bilirubin,Total 0.5 mg/dl (0.2-1.3); Blood Urea Nitrogen 17 mg/dl (9-20); Calcium 9.6 mg/dl (8.4-10.2); Carbon Dioxide 28 mmol/L (22.0-30.0); Chloride 95 mmol/L (98-107); Chol/HDL Ratio 3.3 (1-3.5); Cholesterol 187 mg/dl (140-200); Estimated Glomerular Filt Rate 98 ml/min (>60); GFR (African American) 119 ML/MIN (>60); Globulin 3.2 g/dL (1.3-3.2); Glucose 143 mg/dl (74-100); HDL Cholesterol 57 mg/dl (40-60); Potassium 4.2 mmoL/L (3.5-5.1); Sodium 139 mmol/L (136-145); Total Protein,Serum 7.8 g/dl (6.3-8.2); Triglycerides 113 mg/dl (30-150); VLDL Cholesterol 23 mg/dL (0-40)
[2022-05-16 19:40] LABS: Free T4 (Free Thyroxine) 1.34 ng/dl (0.78-2.19)
[2022-05-16 19:43] LABS: 25-OH Vitamin D, Total 14.5 ng/mL (30-100)
[2022-05-16 20:01] LABS: Thyroid Stimulating Hormone 3.09 uIU/mL (0.465-4.68)
[2022-05-16 20:02] LABS: Hemoglobin A1C 10.3 % (4.0-6.0)
[2022-05-16 21:04] LABS: Direct LDL Cholesterol 108.87 mg/dL (100-129)
== END ==
PROVIDERS: PCP Emergency Medicine; Visit Provider Emergency Medicine
DX: E10.10 Type 1 diabetes mellitus with ketoacidosis without coma (principal); E55.9 Vitamin D deficiency, unspecified; Z79.4 Long term (current) use of insulin
CPT/HCPCS: 80053; 80061; 82306; 83036; 84439; 84443; 85025

== ENCOUNTER → 2022-10-12 13:57 | Outpatient (CLI) | payer BC, SELFPAY ==
[2022-10-12 13:26] LABS: Basophils % 0.6 % (0.1-2.0); Eosinophils # 0.2 K/mm3 (0.0-0.4); Eosinophils % 2.4 % (0.1-12.0); Hematocrit 44.7 % (42.0-52.0); Hemoglobin 15.3 g/dL (14.1-18.0); Lymphocytes # 2.6 K/mm3 (0.7-4.5); Lymphocytes % 39.5 % (10-50); Mean Corpuscular HGB Conc 34.2 g/dL (31.8-35.4); Mean Corpuscular Hemoglobin 29.1 pg (27.0-31.2); Mean Corpuscular Volume 85.1 fl (80-94); Mean Platelet Volume 9.5 fl (7.4-10.4); Monocytes # 0.4 K/mm3 (0.1-1.0); Monocytes % 5.6 % (1.7-9.3); Neutrophils # 3.4 K/mm3 (1.8-7.8); Platelet Count 319 K/mm3 (142-424); Red Blood Count 5.25 M/mm3 (4.60-6.20); Red Cell Distribution Width 12.8 % (11.5-17.5); White Blood Count 6.5 K/mm3 (4.8-10.8)
[2022-10-12 13:31] LABS: Alanine Aminotransferase 31 U/L (12-78); Albumin Level 4.4 g/dl (3.5-5.0); Albumin/Globulin Ratio 1.6 (1.1-1.8); Alkaline Phosphatase 102 U/L (38-126); Anion Gap 11.4 mEq/L (5-15); Aspartate Amino Transferase 37 U/L (17-59); Bilirubin,Total 0.5 mg/dl (0.2-1.3); Blood Urea Nitrogen 17 mg/dl (9-20); Calcium 8.9 mg/dl (8.4-10.2); Carbon Dioxide 27 mmol/L (22.0-30.0); Chloride 102 mmol/L (98-107); Cholesterol 176 mg/dl (140-200); Estimated Glomerular Filt Rate 98 ml/min (>60); GFR (African American) 119 ML/MIN (>60); Globulin 2.8 g/dL (1.3-3.2); Glucose 138 mg/dl (74-100); HDL Cholesterol 44 mg/dl (40-60); Potassium 4.4 mmoL/L (3.5-5.1); Sodium 136 mmol/L (136-145); Total Protein,Serum 7.2 g/dl (6.3-8.2); Triglycerides 99 mg/dl (30-150); VLDL Cholesterol 20 mg/dL (0-40)
[2022-10-12 13:42] LABS: Direct LDL Cholesterol 105.59 mg/dL (100-129)
[2022-10-12 13:47] LABS: T4 (Thyroxine) 6.8 ug/dl (5.53-11.0)
[2022-10-12 13:48] LABS: 25-OH Vitamin D, Total 29.5 ng/mL (30-100)
[2022-10-12 14:00] LABS: Thyroid Stimulating Hormone 1.64 uIU/mL (0.465-4.68)
[2022-10-12 15:52] LABS: Hemoglobin A1C 9.7 % (4.0-6.0)
== END ==
PROVIDERS: PCP Emergency Medicine; Visit Provider Emergency Medicine
DX: E11.9 Type 2 diabetes mellitus without complications (principal); E55.9 Vitamin D deficiency, unspecified; Z79.4 Long term (current) use of insulin
CPT/HCPCS: 80053; 80061; 82306; 83036; 84436; 84443; 85025

== ENCOUNTER 2022-10-25 10:25 | Emergency (ER) | payer BC, SELFPAY ==
[2022-10-25 10:30] VITALS: BP 143/93; PULSE 96; RESP 22; TEMP 36.4; O2SAT 99; BMI 21.6
--- NOTE | 2022-10-25 10:41 | XR_ITS ---
FINAL REPORT CLINICAL HISTORY: Pt states he coughed too hard x days ago, pain on inspiration @ anterior ribs @ level of T7 FINDINGS: RIGHT RIB SERIES Four views of the right ribs show no fractures. There is no pneumothorax or pleural fluid collection. Frontal chest radiograph demonstrates a new ovoid cavitary appearing lesion in the periphery of the left lung which measures 4.3 x 3.5 cm. The lungs are otherwise clear. The mediastinum appears unremarkable. IMPRESSION: No right rib fracture identified. No pneumothorax. New cavitary lesion in the left lung. Recommend infused thoracic CT for further evaluation. Reviewed, Interpreted and Dictated by Bull Saravia MD Transcribed by Martina To Authenticated and [facility]
--- NOTE | 2022-10-25 10:50 | EXP.UTC ---
Discharge Plan Disposition Patient Disposition: Home, Self-Care Condition: Good Prescriptions Prescriptions: New ibuprofen 600 mg tablet 600 mg PO Q6HP PRN (Reason: Moderate Pain) Qty: 20 0RF No Action (DME) Dexcom G6 Transmitter Device See Rx Instructions .Route Qty: 1 0RF Rx Instructions: As directed (DME) Dexcom G6 Sensor Device See Rx Instructions .Route Qty: 3 0RF Rx Instructions: As directed (DME) Dexcom G6 Invisible Braces Orthodontist Misc See Rx Instructions .Route Qty: 1 0RF Rx Instructions: As directed gabapentin 600 mg tablet 600 mg PO HS Qty: 30 2RF insulin regular human 100 unit/mL solution 10 - 15 unit SQ QID Qty: 10 3RF cholecalciferol (vitamin D3) 1,250 mcg (50,000 unit) capsule 1,250 mcg PO WEEKLY Qty: 14 2RF insulin glargine [Lantus U-100 Insulin] 100 unit/mL solution 20 unit SQ BID Label Comments: INJECT 30 UNITS SUBCUTANEOUSLY TWICE DAILY Referrals Follow up/Referrals: Ben Loja MD [Primary Care Provider] - See instructions Activity Restrictions/Add. Instructions Additional Instructions/Restrictions: Make sure to call your Family Doctor today for appointment and follow up as discussed Return if needed Straight To ER if any life threatening symptoms Make sure to take deep breaths Clinical Impressions Clinical Impression: Rib pain on right side Instructions Patient Instructions: Ibuprofen Discharge ED Provider: Deonna Long [facility] General Stated complaint: possible broken rib Mode of Arrival: Ambulatory Source of Information: Patient Limitations: No Limitations Time Seen by Provider: 10/25/22 10:50 Description of Symptoms (Recalled from Triage Doc. by RN): PATIENT C/O PAIN TO RIGHT RIB AREA FOR SEVERAL DAYS. HE DENIES INJURY, BUT REPORTS HE HAD BEEN COUGHING A LOT WHEN THE PAIN STARTED HEENT Symptoms (Recalled from RN notes): No Resp Symptoms (Recalled from RN notes): No Skin Symptoms (Recalled from RN notes): No MS Symptoms (Recalled from RN notes): Yes Functional Status (Recalled from RN notes): WNL History of Present Illness Provider Complaint: Patient states that he has been coughing alot and started having pain in his right ribs States that it has continued to get worse and now having pain with cough, movement and deep breath so he came in to get it checked Denies known injury States that not sure if he may have cracked a rib coughing or what Related Data Home Medications Medication Instructions Recorded Confirmed insulin glargine 100 unit/mL 20 unit SQ BID 10/12/22 10/12/22 subcutaneous solution (Lantus U-100 Insulin) Previous Rx's Medication Instructions Recorded insulin regular human 100 unit/mL 10 - 15 unit (0.1 - 0.15 mL) SQ 06/04/22 injection solution QID Diabetes #10 mL cholecalciferol (vitamin D3) 1,250 1,250 mcg PO WEEKLY #14 caps 06/05/22 mcg (50,000 unit) capsule blood-glucose meter,continuous #1 ea 10/12/22 (Dexcom G6 Invisible Braces Orthodontist) blood-glucose sensor (Dexcom G6 #3 ea 10/12/22 Sensor device) blood-glucose transmitter (Dexcom #1 ea 10/12/22 G6 Transmitter device) gabapentin 600 mg tablet 600 mg PO HS #30 tabs 10/12/22 ibuprofen 600 mg tablet 600 mg PO Q6HP PRN Moderate Pain 10/25/22 #20 tabs Allergies Allergy/AdvReac Type Severity Reaction Status Date / Time No Known Allergies Allergy Verified 10/12/22 11:26 Worker's Comp Is this a Worker's Comp case?: No PFSH [facility] Disclaimer: The information contained in this section may have been updated after the patient was seen, as this information can be updated by other users. Social History Smoking Status: Current every day smoker alcohol intake: never substance use type: marijuana current occupational status: other Travel in the last 8 weeks: None household members: friend(s) housing: house current occupational exposures/hazards: No caffeine:
[2022-10-25 12:35] VITALS: BP 143/93; PULSE 96; RESP 22; TEMP 36.4; O2SAT 99
== END 2022-10-25 13:19 | disposition home or self-care (01) ==
PROVIDERS: Emergency Provider Nurse Practitioner; PCP Emergency Medicine
DX: R07.81 Pleurodynia (principal); F17.210 Nicotine dependence, cigarettes, uncomplicated; E11.9 Type 2 diabetes mellitus without complications; Z79.4 Long term (current) use of insulin
CPT/HCPCS: 71101; 99212; 99214; G0463

== ENCOUNTER 2022-10-27 07:20 | Emergency (ER) | payer BC, SELFPAY ==
[2022-10-27 07:28] VITALS: BP 150/87; PULSE 120; RESP 20; TEMP 36.1; O2SAT 100; BMI 20.9
[2022-10-27 07:30] VITALS: BP 144/82; PULSE 109; RESP 16; O2SAT 99
--- NOTE | 2022-10-27 07:34 | PC.NURSE ---
FS 173
[2022-10-27 07:40] LABS: POC Glucose,Bedside 173 (70-110)
[2022-10-27 07:44] LABS: Basophils % 0.3 % (0.1-2.0); Eosinophils % 0.2 % (0.1-12.0); Hematocrit 46.5 % (42.0-52.0); Hemoglobin 15.5 g/dL (14.1-18.0); Lymphocytes # 1.9 K/mm3 (0.7-4.5); Lymphocytes % 15.4 % (10-50); Mean Corpuscular HGB Conc 33.2 g/dL (31.8-35.4); Mean Corpuscular Hemoglobin 28.7 pg (27.0-31.2); Mean Corpuscular Volume 86.4 fl (80-94); Mean Platelet Volume 8.9 fl (7.4-10.4); Monocytes # 0.5 K/mm3 (0.1-1.0); Monocytes % 3.8 % (1.7-9.3); Neutrophils % 80.4 % (37.0-80.0); Platelet Count 369 K/mm3 (142-424); Red Blood Count 5.39 M/mm3 (4.60-6.20); White Blood Count 12.5 K/mm3 (4.8-10.8)
[2022-10-27 07:49] LABS: Acetone, Serum (Rapid) None Detected (None Detect); Chloride 102 mmol/L (98-107); Potassium 4.1 mmoL/L (3.5-5.1); Sodium 142 mmol/L (136-145)
[2022-10-27 07:52] LABS: Alanine Aminotransferase 53 U/L (12-78); Albumin Level 4.8 g/dl (3.5-5.0); Albumin/Globulin Ratio 1.4 (1.1-1.8); Alkaline Phosphatase 108 U/L (38-126); Anion Gap 16.1 mEq/L (5-15); Aspartate Amino Transferase 48 U/L (17-59); Bilirubin,Total 0.8 mg/dl (0.2-1.3); Blood Urea Nitrogen 24 mg/dl (9-20); Carbon Dioxide 28 mmol/L (22.0-30.0); Creatinine Clearance Estimated 106 mL/min (50-200); Estimated Glomerular Filt Rate 87 ml/min (>60); GFR (African American) 105 ML/MIN (>60); Globulin 3.5 g/dL (1.3-3.2); Total Protein,Serum 8.3 g/dl (6.3-8.2)
[2022-10-27 07:53] LABS: Calcium 9.5 mg/dl (8.4-10.2); Glucose 158 mg/dl (74-100)
--- NOTE | 2022-10-27 07:59 | HMH.EDGENADL ---
Discharge Plan Disposition Patient Disposition: Home, Self-Care Condition: Fair Prescriptions Prescriptions: New metoclopramide HCl [Reglan] 10 mg tablet 10 mg PO Q6H PRN (Reason: nausea and vomiting) Qty: 14 0RF Rx Instructions: Take [id number] Benadryl, 25 mg, if you experience restlessness or fidgety when taking this medicine. No Action (DME) Dexcom G6 Transmitter Device See Rx Instructions .Route Qty: 1 0RF Rx Instructions: As directed (DME) Dexcom G6 Sensor Device See Rx Instructions .Route Qty: 3 0RF Rx Instructions: As directed (DME) Dexcom G6 Shoe Stainer Misc See Rx Instructions .Route Qty: 1 0RF Rx Instructions: As directed gabapentin 600 mg tablet 600 mg PO HS Qty: 30 2RF insulin regular human 100 unit/mL solution 10 - 15 unit SQ QID Qty: 10 3RF cholecalciferol (vitamin D3) 1,250 mcg (50,000 unit) capsule 1,250 mcg PO WEEKLY Qty: 14 2RF insulin glargine [Lantus U-100 Insulin] 100 unit/mL solution 20 unit SQ BID Label Comments: INJECT 30 UNITS SUBCUTANEOUSLY TWICE DAILY ibuprofen 600 mg tablet 600 mg PO Q6HP PRN (Reason: Moderate Pain) Qty: 20 0RF Referrals Follow up/Referrals: Ben Loja MD [Primary Care Provider] - See instructions Activity Restrictions/Add. Instructions Additional Instructions/Restrictions: Drink clear liquids by mouth for the next day or 2. Avoid solid foods. Once you tolerate liquids well, you may start advancing your diet slowly. Return to the emergency department immediately if you feel worse in any way. Follow-up with your primary care doctor in about 2 to 3 days if you do not feel better. Clinical Impressions Clinical Impression: Vomiting alone, Diabetes mellitus Instructions Patient Instructions: DI for Vomiting -- Adult Discharge ED Provider: Gigi Womack Adult [facility] General Chief complaint: Hyper/Hypoglycemia Stated complaint: diabetic, vomiting, pain Time Seen by Provider: 10/27/22 08:11 Mode of Arrival: Wheelchair Source of Information: Patient and Significant Other Limitations: No Limitations Description of Symptoms (Recalled from ER Triage Doc. by RN): Presents via POV d/t n/v & sweats that started last night. Pt states he is concerned for DKA. Hx of DM I, Rx Novolin R and Lantus. History of Present Illness HPI narrative: Patient presents to the emergency department complaining of nausea and vomiting since last night. He is a known type I diabetic. He denies any diarrhea. Denies any fevers. He and his girlfriend ate the same food yesterday. She has no symptoms. Patient states that his home glucometer is not functioning properly. He did, however, take his regular insulin doses. Related Data Home Medications Medication Instructions Recorded Confirmed insulin glargine 100 unit/mL 20 unit SQ BID 10/12/22 10/12/22 subcutaneous solution (Lantus U-100 Insulin) Previous Rx's Medication Instructions Recorded insulin regular human 100 unit/mL 10 - 15 unit (0.1 - 0.15 mL) SQ 06/04/22 injection solution QID Diabetes #10 mL cholecalciferol (vitamin D3) 1,250 1,250 mcg PO WEEKLY #14 caps 06/05/22 mcg (50,000 unit) capsule blood-glucose meter,continuous #1 ea 10/12/22 (Dexcom G6 Shoe Stainer) blood-glucose sensor (Dexcom G6 #3 ea 10/12/22 Sensor device) blood-glucose transmitter (Dexcom #1 ea 10/12/22 G6 Transmitter device) gabapentin 600 mg tablet 600 mg PO HS #30 tabs 10/12/22 ibuprofen 600 mg tablet 600 mg PO Q6HP PRN Moderate Pain 10/25/22 #20 tabs metoclopramide HCl 10 mg tablet 10 mg PO Q6H PRN nausea and 10/27/22 (Reglan) vomiting #14 tabs Allergies Allergy/AdvReac Type Severity Reaction Status Date / Time metoclopramide AdvReac Anxiety Verified 10/27/22 08:30 [facility] Disclaimer: The information contained in this section may have been updated after the patient was seen, as this information can be updated by other
[2022-10-27 08:00] VITALS: BP 143/77; PULSE 100; RESP 18; O2SAT 96
[2022-10-27 08:05] VITALS: BP 143/77; PULSE 115; RESP 20; O2SAT 98
[2022-10-27 08:17] LABS: Lipase 78 U/L (23-300)
--- NOTE | 2022-10-27 08:27 | PC.NURSE ---
Pt became extremely anxious after Reglan. PIV removed via self accidently. New 18g PIV inserted to LAC. Benadryl 25mg IV administered.
--- NOTE | 2022-10-27 08:36 | PC.NURSE ---
Oral Sprite provided. Improvement noted.
[2022-10-27 09:18] VITALS: BP 118/72; PULSE 92; RESP 16; TEMP 36.1; O2SAT 98
== END 2022-10-27 09:19 | disposition home or self-care (01) ==
PROVIDERS: Emergency Provider Emergency Medicine; PCP Emergency Medicine
DX: R11.10 Vomiting, unspecified (principal); E10.9 Type 1 diabetes mellitus without complications
CPT/HCPCS: 80053; 82009; 82962; 83690; 85025; 96360; 96374; 96375; 99284; 99285; J2405

== ENCOUNTER 2022-10-28 02:02 | Emergency (ER) | payer BC, SELFPAY ==
[2022-10-28] VITALS (9 sets, daily range): BP systolic 121–153; BP diastolic 66–96; PULSE 86–110; RESP 16; TEMP 36.6–36.8; O2SAT 95–98; BMI 20.9
--- NOTE | 2022-10-28 02:31 | CT_ITS ---
PROCEDURE INFORMATION: Exam: CT Abdomen And Pelvis With Contrast Exam date and time: 10/28/2022 3:09 AM Age: 31 years old Clinical indication: Abdominal pain; Additional info: Abd pain TECHNIQUE: Imaging protocol: Computed tomography of the abdomen and pelvis with contrast. Radiation optimization: All CT scans at this facility use at least one of these dose optimization techniques: automated exposure control; mA and/or kV adjustment per patient size (includes targeted exams where dose is matched to clinical indication); or iterative reconstruction. Contrast material: ISOVUE; Contrast volume: 75 ml; Contrast route: IV; REPORTING DATA: Count of CT and Cardiac NM exams in prior 12 months: This patient has received 0 known CTs and 0 known cardiac nuclear medicine studies in the 12 months prior to the current study. COMPARISON: ABDPELW CT ABD PELVIS W/ CONTRAST 01/01/2017 2:16 PM FINDINGS: Liver: < 1.0 cm hypodense lesion. Gallbladder and bile ducts: No calcified stones. No ductal dilation. Pancreas: Unremarkable. No ductal dilation. Spleen: No splenomegaly. Adrenal glands: No mass. Kidneys and ureters: 1.2 cm hyperdense or enhancing lesion within LEFT kidney, indeterminate by CT criteria. No significant hydronephrosis. Stomach and bowel: No definite mural thickening. No obstruction. Appendix: Appendectomy. Intraperitoneal space: No significant fluid collection. No definite free air. Vasculature: Unremarkable. No aneurysm. Lymph nodes: No pathologically enlarged lymph nodes. Urinary bladder: Apparent mild bladder wall thickening. Incomplete distention, limiting evaluation. Reproductive: Unremarkable as visualized. Bones/joints: Probable bone islands. No acute fracture. Soft tissues: Unremarkable. IMPRESSION: 1. Cystitis vs underdistention. Correlate with urinalysis. 2. LEFT kidney lesion, incompletely characterized. Recommend nonemergent MRI. 3. Liver lesion. In a low-risk patient, this lesion is most likely to be benign and no further follow-up is recommended. In a high-risk patient, recommend follow-up MRI in 3-6 months (or earlier if warranted by the patient's specific clinical circumstances).
[2022-10-28 02:41] LABS: Basophils % 0.3 % (0.1-2.0); Eosinophils % 0.2 % (0.1-12.0); Hematocrit 44.4 % (42.0-52.0); Hemoglobin 14.4 g/dL (14.1-18.0); Lymphocytes # 2.2 K/mm3 (0.7-4.5); Lymphocytes % 17.3 % (10-50); Mean Corpuscular HGB Conc 32.4 g/dL (31.8-35.4); Mean Corpuscular Hemoglobin 28.5 pg (27.0-31.2); Mean Platelet Volume 8.8 fl (7.4-10.4); Monocytes # 0.6 K/mm3 (0.1-1.0); Monocytes % 4.9 % (1.7-9.3); Neutrophils % 77.3 % (37.0-80.0); Platelet Count 337 K/mm3 (142-424); Red Blood Count 5.05 M/mm3 (4.60-6.20); Red Cell Distribution Width 13.1 % (11.5-17.5); White Blood Count 12.9 K/mm3 (4.8-10.8)
[2022-10-28 02:42] LABS: Chloride 102 mmol/L (98-107)
[2022-10-28 02:43] LABS: Potassium 3.8 mmoL/L (3.5-5.1); Sodium 142 mmol/L (136-145)
[2022-10-28 02:45] LABS: Alanine Aminotransferase 64 U/L (12-78); Alkaline Phosphatase 99 U/L (38-126); Aspartate Amino Transferase 55 U/L (17-59); Bilirubin,Total 0.7 mg/dl (0.2-1.3); Blood Urea Nitrogen 22 mg/dl (9-20); Creatinine Clearance Estimated 118 mL/min (50-200); Estimated Glomerular Filt Rate 98 ml/min (>60); GFR (African American) 119 ML/MIN (>60)
[2022-10-28 02:46] LABS: Albumin Level 4.5 g/dl (3.5-5.0); Albumin/Globulin Ratio 1.5 (1.1-1.8); Anion Gap 16.8 mEq/L (5-15); Calcium 9.1 mg/dl (8.4-10.2); Carbon Dioxide 27 mmol/L (22.0-30.0); Globulin 3.1 g/dL (1.3-3.2); Glucose 202 mg/dl (74-100); Lipase 43 U/L (23-300); Total Protein,Serum 7.6 g/dl (6.3-8.2)
[2022-10-28 02:46] LABS: POC Glucose,Bedside 195 (70-110)
[2022-10-28 02:47] LABS: Lactic Acid 2.8 mmol/L (0.7-2.1)
[2022-10-28 02:51] LABS: Coronavirus 19, PCR Not Detected (NotDetected); Influenza A, PCR Not Detected (NotDetected); Influenza B, PCR Not Detected (NotDetected)
[2022-10-28 02:57] LABS: Microscopic, Urine URINE MICROSCOPIC (MICROSCOPIC)
[2022-10-28 02:59] LABS: Appearance,Urine CLEAR (Clear); Blood, Urine Negative (Negative); Color,Urine DK YELLOW (Yellow); Glucose,Urine (UA) TRACE (Negative); Ketones,Urine 3+ (Negative); Leukocyte Esterase,Urine Negative (Negative); Nitrate,Urine Negative (Negative); PH,Urine 6.5 (5.0-8.5); Protein,Urine 2+ (Negative); Specific Gravity, Urine >= 1.030 (1.005-1.030)
[2022-10-28 03:00] LABS: Amylase 95 U/L (30-110)
--- NOTE | 2022-10-28 03:02 | HMH.EDABDPAI ---
Discharge Plan Disposition Patient Disposition: Home, Self-Care Chief Complaint: Abdominal Pain Prescriptions Prescriptions: No Action (DME) Dexcom G6 Transmitter Device See Rx Instructions .Route Qty: 1 0RF Rx Instructions: As directed (DME) Dexcom G6 Sensor Device See Rx Instructions .Route Qty: 3 0RF Rx Instructions: As directed (DME) Dexcom G6 Milk Treater Misc See Rx Instructions .Route Qty: 1 0RF Rx Instructions: As directed gabapentin 600 mg tablet 600 mg PO HS Qty: 30 2RF insulin regular human 100 unit/mL solution 10 - 15 unit SQ QID Qty: 10 3RF cholecalciferol (vitamin D3) 1,250 mcg (50,000 unit) capsule 1,250 mcg PO WEEKLY Qty: 14 2RF insulin glargine [Lantus U-100 Insulin] 100 unit/mL solution 20 unit SQ BID Label Comments: INJECT 30 UNITS SUBCUTANEOUSLY TWICE DAILY metoclopramide HCl [Reglan] 10 mg tablet 10 mg PO Q6H PRN (Reason: nausea and vomiting) Qty: 14 0RF Rx Instructions: Take [id number] Benadryl, 25 mg, if you experience restlessness or fidgety when taking this medicine. ibuprofen 600 mg tablet 600 mg PO Q6HP PRN (Reason: Moderate Pain) Qty: 20 0RF Referrals Follow up/Referrals: Ben Loja MD [Primary Care Provider] - See instructions Clinical Impressions Clinical Impression: Vomiting, Diabetes mellitus Instructions Patient Instructions: DI for Vomiting -- Adult Discharge ED Provider: [facility] (ED)Ben Abdominal Pain HPI General Chief Complaint: Abdominal Pain Stated Complaint: Vomiting Time Seen by Provider: 10/28/22 03:03 Mode of Arrival: Ambulatory Source of Information: Patient, Spouse and Medical Record Limitations: No Limitations Description of Symptoms (Recalled from ER Triage Doc. by RN): Pt arrives to ED with consistent vomiting and abd pain since this yesterday. Pt was seen in the ED yesterday, but states his symptoms are worse. History of Present Illness HPI narrative: pt with iddm and presents with vomiting and no diarrhea - pt was seen earlier for same MD complaint: abdominal pain Onset (ago): day(s) Consistency: intermittent Location: diffuse Severity: moderate Associated symptoms: denies other symptoms Related Data Home Medications Medication Instructions Recorded Confirmed insulin glargine 100 unit/mL 20 unit SQ BID 10/12/22 10/12/22 subcutaneous solution (Lantus U-100 Insulin) Previous Rx's Medication Instructions Recorded insulin regular human 100 unit/mL 10 - 15 unit (0.1 - 0.15 mL) SQ 06/04/22 injection solution QID Diabetes #10 mL cholecalciferol (vitamin D3) 1,250 1,250 mcg PO WEEKLY #14 caps 06/05/22 mcg (50,000 unit) capsule blood-glucose meter,continuous #1 ea 10/12/22 (Dexcom G6 Milk Treater) blood-glucose sensor (Dexcom G6 #3 ea 10/12/22 Sensor device) blood-glucose transmitter (Dexcom #1 ea 10/12/22 G6 Transmitter device) gabapentin 600 mg tablet 600 mg PO HS #30 tabs 10/12/22 ibuprofen 600 mg tablet 600 mg PO Q6HP PRN Moderate Pain 10/25/22 #20 tabs metoclopramide HCl 10 mg tablet 10 mg PO Q6H PRN nausea and 10/27/22 (Reglan) vomiting #14 tabs Allergies Allergy/AdvReac Type Severity Reaction Status Date / Time metoclopramide AdvReac Anxiety Verified 10[facility]27[facility]22 08:[facility] Disclaimer: The information contained in this section may have been updated after the patient was seen, as this information can be updated by other users. Social History Smoking Status: Former smoker alcohol intake: never substance use type: marijuana current occupational status: other Travel in the last 8 weeks: None household members: friend(s) housing: house current occupational exposures/hazards: No caffeine: No ROS Obtained: Yes All systems reviewed & no additional complaints except as documented Physical Exam General General appearance: alert Head Head exa
[2022-10-28 03:07] LABS: Bilirubin,Urine 2+ (Negative)
[2022-10-28 03:12] LABS: Bacteria,Urine Trace /lpf; Mucus,Urine 2+ /lpf; RBC,Urine Occasional #/hpf (0-3); WBC,Urine Occasional #/hpf (0-3)
[2022-10-28 03:13] LABS: Acetone, Serum (Rapid) None Detected (None Detect)
[2022-10-28 06:36] LABS: Reflex Lactic Add Lactic Reflex
[2022-10-28 07:04] LABS: Amphetamine/Metha Screen,Urine Negative ng/ml (<1000); Benzodiazepines Screen,Urine Negative ng/ml (<200)
[2022-10-28 07:05] LABS: Barbiturates Screen,Urine Negative ng/ml (<200)
[2022-10-28 07:06] LABS: Cannabinoid Screen,Urine Positive ng/ml (<50); Cocaine Screen,Urine Negative ng/ml (<300)
[2022-10-28 07:07] LABS: Lactic Acid Follow Up (RFLX 1) 0.8 mmol/L (0.7-2.1)
[2022-10-28 07:07] LABS: Methadone Screen,Urine Negative ng/ml (<300)
[2022-10-28 07:08] LABS: Opiate Screen,Urine Negative ng/ml (<300); Phencyclidine Screen,Urine Negative ng/ml (<25)
== END 2022-10-28 07:31 | disposition home or self-care (01) ==
PROVIDERS: Emergency Provider Emergency Medicine; PCP Emergency Medicine
DX: E11.65 Type 2 diabetes mellitus with hyperglycemia (principal); R11.10 Vomiting, unspecified; R10.9 Unspecified abdominal pain; Z79.4 Long term (current) use of insulin
CPT/HCPCS: 74177; 80053; 80305; 81001; 82009; 82150; 82962; 83605; 83690; 85025; 96361; 96374; 96375; 99285; C9803; J0131; J2405; Q9967; U0003; U0005

== ENCOUNTER → 2022-11-10 11:03 | Outpatient (CLI) | payer BC, SELFPAY ==
[2022-11-10 12:27] LABS: Blood Urea Nitrogen 23 mg/dl (9-20); Estimated Glomerular Filt Rate 87 ml/min (>60); GFR (African American) 105 ML/MIN (>60)
== END ==
PROVIDERS: PCP Emergency Medicine; Visit Provider Emergency Medicine
DX: E11.9 Type 2 diabetes mellitus without complications (principal); Z79.4 Long term (current) use of insulin
CPT/HCPCS: 36415; 82565; 84520

== ENCOUNTER → 2022-11-20 07:32 | Outpatient (CLI) | payer BC, SELFPAY ==
--- NOTE | 2022-11-20 07:37 | MR_ITS ---
FINAL REPORT CLINICAL HISTORY: please look at left kidney. ABNORMAL IMAGING. FINDINGS: Multiplanar MR imaging of the abdomen was performed without and with contrast. Images of the liver reveal no evidence of mass. There is no evidence of biliary ductal dilatation. The gallbladder has an unremarkable appearance. The spleen and pancreas are unremarkable. The adrenal glands are unremarkable. There is a 1.2 cm atypical mass in the anterior left kidney involving the cortex. The margins are fairly well defined. This mass demonstrates increased T1 signal and decreased T2 signal. There is no clear enhancement. This mass favors a complex benign cyst. No other masses are identified. The right kidney is unremarkable. No abnormal contrast enhancement is seen on the postcontrast images. IMPRESSION: Left renal mass favoring a complex benign cyst. Recommend follow-up in 6 months to ensure stability. Reviewed, Interpreted and Dictated by Bull Saravia MD Transcribed by Chester Olvera Authenticated and [facility]
--- NOTE | 2022-11-20 07:42 | XR_ITS ---
FINAL REPORT CLINICAL HISTORY: RULE OUT METAL FOREIGN BODY FOR MRI COMPARISON: 05/27/2020 FINDINGS: Orbit Two views were obtained. No foreign body is identified. There appears to be opacification of the left maxillary sinus which may be due to chronic sinusitis. IMPRESSION: No foreign body identified. Reviewed, Interpreted and Dictated by Bull Saravia MD Transcribed by Celi Scruggs Authenticated and [facility]
--- NOTE | 2022-11-20 07:50 | CT_ITS ---
FINAL REPORT TECHNIQUE: Routine axial images were obtained from the lung apices to below the diaphragm following IV contrast administration. Individualized dose reduction techniques using automated exposure control or adjustment of the mA and/or kV according to the patient size were employed. CLINICAL HISTORY: abn chest x-ray COMPARISON: Chest/rib x-rays dated 10/25/2022 FINDINGS: Mediastinal vasculature is well opacified. Soft tissue in the anterior mediastinum is likely related to residual thymus tissue. The heart size is normal. There is no pleural or pericardial effusion. There is a 3.3 cm cavitary mass in the left upper lobe which extends to the pleural margin. There are several smaller satellite nodules. A focus inferior to the cavitary mass measures up to 1.2 cm, well seen on image 43 of series 2. A 6 mm nodule is seen in the more anterior right upper lobe, image 38 of series 2. There is some patchy airspace opacity in the inferior lingula and the medial left upper lobe. There is dense airspace opacity in the inferior right upper lobe seen on image 36 of series 2. Limited images of the upper abdomen are unremarkable. IMPRESSION: Dominant cavitary mass in the left upper lobe favored to be postinflammatory. Airspace nodular infiltrates, bilaterally, with airspace focus in the right upper lobe. Again, these are favored to be postinflammatory. Atypical pneumonia is not entirely excluded. Based on clinical presentation, bronchoscopy should be considered. In addition, follow-up CT chest in 1-3 months is recommended to ensure favorable progression. Reviewed, Interpreted and Dictated by Bull Saravia MD Transcribed by Magdalena Toribio Authenticated and [facility]
== END ==
PROVIDERS: PCP Emergency Medicine; Visit Provider Emergency Medicine
DX: R93.89 Abnormal findings on diagnostic imaging of other specified body structures (principal); H05.53 Retained (old) foreign body following penetrating wound of bilateral orbits
CPT/HCPCS: 70200; 71260; 74183; A9576; Q9967

== ENCOUNTER → 2022-12-04 15:12 | Outpatient (CLI) | payer BC, SELFPAY ==
[2022-12-06 11:25] LABS: QuantiFERON-TB Gold Plus Negative (Negative)
[2022-12-09 18:08] LABS: Aspergillus flavus Negative (Neg:<1:1); Aspergillus fumigatus Negative (Neg:<1:1); Aspergillus niger Negative (Neg:<1:1); Blastomyces Antibody Negative (Neg:<1:1)
== END ==
PROVIDERS: PCP Emergency Medicine; Visit Provider Internal Medicine Pulmonary Disease
DX: J84.10 Pulmonary fibrosis, unspecified (principal)
CPT/HCPCS: 36415; 86480; 86606; 86612

== ENCOUNTER 2022-12-10 08:49 | Day surgery (SDC) | payer BC, SELFPAY ==
[2022-12-06 14:16] VITALS: BMI 20.4
[2022-12-10] VITALS (14 sets, daily range): BP systolic 118–154; BP diastolic 67–93; PULSE 88–110; RESP 16–18; TEMP 36.6–43; O2SAT 95–99
--- NOTE | 2022-12-10 09:09 | ECG_ITS ---
APPROVED REPORT Exam: Resting ECG HR:98 bpm ECG Measurements Heart Rate 98 AXES ID 124 P 80 QRSd 87 QRS 43 QT 324 T 48 QTc 379 Conclusion SINUS RHYTHM NORMAL ECG UNCONFIRMED REPORT Electronically signed by : Prashant Hanson MD 12/10/2022 20:19:24
[2022-12-10 09:23] LABS: POC Glucose,Bedside 88 (70-110)
[2022-12-10 09:25] LABS: Basophils # 0.1 K/mm3 (0-0.2); Basophils % 0.8 % (0.1-2.0); Eosinophils # 0.2 K/mm3 (0.0-0.4); Eosinophils % 2.8 % (0.1-12.0); Hematocrit 41.4 % (42.0-52.0); Hemoglobin 13.8 g/dL (14.1-18.0); Lymphocytes # 3.2 K/mm3 (0.7-4.5); Lymphocytes % 41.7 % (10-50); Mean Corpuscular HGB Conc 33.4 g/dL (31.8-35.4); Mean Corpuscular Hemoglobin 28.3 pg (27.0-31.2); Mean Corpuscular Volume 84.8 fl (80-94); Mean Platelet Volume 8.5 fl (7.4-10.4); Monocytes # 0.6 K/mm3 (0.1-1.0); Monocytes % 7.2 % (1.7-9.3); Neutrophils # 3.7 K/mm3 (1.8-7.8); Neutrophils % 47.6 % (37.0-80.0); Platelet Count 350 K/mm3 (142-424); Red Blood Count 4.88 M/mm3 (4.60-6.20); Red Cell Distribution Width 13.5 % (11.5-17.5); White Blood Count 7.7 K/mm3 (4.8-10.8)
[2022-12-10 09:34] LABS: Anion Gap 11.9 mEq/L (5-15); Blood Urea Nitrogen 17 mg/dl (9-20); Calcium 9.1 mg/dl (8.4-10.2); Carbon Dioxide 31 mmol/L (22.0-30.0); Chloride 103 mmol/L (98-107); Creatinine Clearance Estimated 118 mL/min (50-200); Estimated Glomerular Filt Rate 98 ml/min (>60); GFR (African American) 119 ML/MIN (>60); Glucose 87 mg/dl (74-100); Potassium 3.9 mmoL/L (3.5-5.1); Sodium 142 mmol/L (136-145)
[2022-12-10 10:20] LABS: POC Glucose,Bedside 66 (70-110)
--- NOTE | 2022-12-10 10:33 | EXP.ANES.CKL ---
[facility] Disclaimer: The information contained in this section may have been updated after the patient was seen, as this information can be updated by other users. Medical History Anterior pleuritic pain Pneumonia Pneumonia with cavity of lung Pneumonia with cavity of lung Surgical History History of appendectomy Family History Other Family history non-contributory Social History Smoking Status: Current some day smoker alcohol intake: never substance use type: marijuana current occupational status: other Travel in the last 8 weeks: None household members: friend(s) housing: house current occupational exposures/hazards: No caffeine: No [facility] Anesthesia Checklist Patient Identification Patient Identification: Arm Band Structural Data Admitted From: Home Planned Operative Procedure/s: Bronchoscopy with Transbronchial Biopsy Consent for Planned Operative Procedure(s) Verified: Yes Verified Documents: Surgical Consent and History and Physical Additional verifications Anesthesia Reactions: No Hx Blood Transfusions: No Blood Transfusion Reaction: No Airway Assessment C-Spine Mobility Assessed: Yes TMJ Mobility Assessed: Yes Dentition: Good Dentition Neurological Assessment Level of Consciousness: Awake and Alert Anesthesia Plan Anesthesia Risk discussed: Yes Anesthesia Plan: Verified ASA Class: III Anesthesia Type: General
--- NOTE | 2022-12-10 10:56 | XR_ITS ---
FINAL REPORT TECHNIQUE: Fluoroscopy was provided bronchoscopy. CLINICAL HISTORY: BRONCHOSCOPY, FLUORO TIME 1.5 MIN FINDINGS: Two fluoroscopic spot films were obtained. 1.5 minutes of fluoroscopy time was recorded. IMPRESSION: 1.5 minutes of fluoroscopy time. Reviewed, Interpreted and Dictated by Raymond Pennington III, MD Transcribed by Anisha Ballesteros Authenticated and [facility]
--- NOTE | 2022-12-10 11:08 | XR_ITS ---
FINAL REPORT TECHNIQUE: Single view chest CLINICAL HISTORY: s/p bronchoscopy COMPARISON: 11/20/2022 FINDINGS: A single view of the chest was obtained. The heart and mediastinum are within normal limits. Left midlung cavitary mass is seen measuring 33 mm, previously measured 43 mm. There is a new, medial right lower lobe opacity worrisome for pneumonia. There is no pneumothorax. Osseous structures are unremarkable. IMPRESSION: Left mid lung cavitary mass, decreased in size. New, medial right lower lobe opacity worrisome for pneumonia. Reviewed, Interpreted and Dictated by Raymond Pennington III, MD Transcribed by Anisha Ballesteros Authenticated and [facility]
--- NOTE | 2022-12-10 11:10 | EXP.BRONCH.N ---
Procedure: Date: 12/10/22 Patient Date of :: 1990 Procedure Performed:: Bronchoscopy with airway examination, bronchoalveolar lavage and transbronchial lung biopsy Indications:: Cavitary pneumonia Performing Provider:: Neil Taylor MD Referring Provider:: Dr:Ben Cavazos MD Sedation:: General anesthesia Procedure:: Bronchoscopy airway examination, bronchoalveolar lavage and transbronchial lung biopsy: A clean THEREPEAUTIC bronchoscopy was advanced through the ET tube and airways were examined up to subsegmental bronchi. Airways appeared grossly normal, no evidence of mucoid secretions, mucous plugging active bleeding/old blood clots noted. Bronchoalveolar lavage was performed in the RIGHT UPPER LOBE with instillation of 60 cc normal saline with return of 30 cc cloudy fluid back. Bronchoalveolar lavage was also performed of theLEFT UPPER LOBE with instillation of 60 cc normal saline with return of 20 cc clear fluid. BAL fluid from both the right upper lobe and left upper lobe was sent separately for cell count and differential along with bacterial fungal and AFB stain and cultures. BAL fluid was also sent for cytopathologic examination Transbronchial biopsy was performed in the RIGHT UPPER LOBE with a total of 7 biopsies performed, 5 biopsy specimens were sent in formalin for cytopathologic examination. The other 2 biopsy samples, were sent one each in two separate normal saline specimen cups for bacterial fungal and AFB stain cultures. Special request was also made for the pathologist to evaluate for AFB and fungal organisms on the cytopathologic examination. Patient tolerated the procedure with no immediate acute complications. We will follow the patient in pulmonary clinic in 7 to 10 days. Findings:: Please see the procedure note Recommendations:: Please see the procedure note. Postoperative bronchoscopy precautions Follow in clinic Complications:: No acute immediate complication Estimated blood obtained (mL): 5
[2022-12-10 11:14] LABS: POC Glucose,Bedside 64 (70-110)
[2022-12-10 11:48] LABS: POC Glucose,Bedside 69 (70-110)
--- NOTE | 2022-12-10 13:45 | P.PNANES_ITS ---
[facility] Anesthesia Record Part I Anesthesia Record I Intake, IV Amount: 800 Estimated blood loss (mL): 0 Urine output (mL): 0 Blood Pressure: 150/85 SaO2: 95 Pulse Rate: 105 Respiratory Rate: 16 Temperature: 98.1 F Patient is:: Drowsy and Stable Stable to PACU at:: 11:05
--- NOTE | 2022-12-10 13:45 | EXP.ANES.II ---
[facility] Anesthesia Record Part II Anesthesia Record Part II Discharge Time: 11:42 Destination: Surgical Day Care (OP Surgery) PACU nurse assessment reviewed?: Yes Patient Condition:: Good Anesthesia Complications:: None Swallowing reflex intact?: Yes Cyanosis?: No Blood Pressure: 118/73 Pulse Rate: 91 Temperature: 97.9 F Mental Status: Alert & Oriented Pain level:: 5 Nausea and/or vomitting:: None Intake, IV Amount: 0
== END 2022-12-10 12:13 | disposition home or self-care (01) ==
PROVIDERS: PCP Emergency Medicine; Visit Provider Internal Medicine Pulmonary Disease
PROC: (CPT 31624; principal; 2022-12-10 10:15)
DX: J98.4 Other disorders of lung (principal); J18.9 Pneumonia, unspecified organism; F17.210 Nicotine dependence, cigarettes, uncomplicated; Z79.899 Other long term (current) drug therapy; E11.9 Type 2 diabetes mellitus without complications; Z79.4 Long term (current) use of insulin; R07.81 Pleurodynia
CPT/HCPCS: 31624; 31628; 71045; 76000; 80048; 82962; 85025; 87070; 87102; 87116; 87186; 87205; 87206; 89051; 93005; J2405

== ENCOUNTER 2023-01-12 20:25 | Observation (INO) | payer BC, SELFPAY ==
[2023-01-12 20:27] VITALS: BP 138/79; PULSE 110; RESP 22; TEMP 36.4; O2SAT 100; BMI 21.7
[2023-01-12 20:46] LABS: POC Glucose,Bedside 263 (70-110)
[2023-01-12 21:00] VITALS: BP 121/72; PULSE 96; O2SAT 98
--- NOTE | 2023-01-12 21:00 | HMH.EDABDPAI ---
Discharge Plan Disposition Patient Disposition: Admitted Chief Complaint: Abdominal Pain Clinical Impressions Clinical Impression: Gastritis, Diabetes mellitus Discharge ED Provider: [facility] ([facility])Ben Abdominal Pain HPI General Chief Complaint: Abdominal Pain Stated Complaint: vomiting, weak Time Seen by Provider: 01/12/23 20:50 Mode of Arrival: Wheelchair Source of Information: Patient, Significant Other and Medical Record Limitations: No Limitations Description of Symptoms (Recalled from ER Triage Doc. by RN): Pt started having abdominal pain around 1900 this evening following mulitple episodes of vomiting. Pt states he has had some diarrhea over the past few days, denies any fever or other symptoms. Rates abdominal pain 04/30. History of Present Illness HPI narrative: upper abd pain with vomiting this am and during the days - has hx of iddm - no melena or hematemesis- no etoh but does use thc - MD complaint: abdominal pain Onset (ago): hour(s) Consistency: intermittent Location: epigastric Severity: severe Associated symptoms: denies other symptoms Related Data Home Medications Medication Instructions Recorded Confirmed cholecalciferol (vitamin D3) 1,250 1,250 mcg PO WEEKLY Supplement 12/06/22 01/12/23 mcg (50,000 unit) capsule insulin glargine 100 unit/mL 20 unit SQ BID Diabetes 12/06/22 01/12/23 subcutaneous solution (Lantus U-100 Insulin) amoxicillin 500 mg-potassium 1 tab PO Q8H Infection 01/12/23 01/12/23 clavulanate 125 mg tablet (Augmentin) gabapentin 600 mg tablet 600 mg PO HS Restless leg 01/12/23 01/12/23 Previous Rx's Medication Instructions Recorded ibuprofen 600 mg tablet 600 mg PO Q6HP PRN Moderate Pain 10/25/22 #20 tabs insulin regular human 100 unit/mL 10 - 15 unit (0.1 - 0.15 mL) SQ 11/26/22 injection solution QID Diabetes #10 mL Allergies Allergy/AdvReac Type Severity Reaction Status Date / Time prochlorperazine AdvReac Intermediate anxiety, Verified 01/12/23 23:38 [From Compazine] shaking, and SOA metoclopramide AdvReac Anxiety Verified 01/04/23 13:02 [facility] Disclaimer: The information contained in this section may have been updated after the patient was seen, as this information can be updated by other users. Medical History Anterior pleuritic pain Pneumonia Pneumonia with cavity of lung Pneumonia with cavity of lung Surgical History History of appendectomy Family History Other Family history non-contributory Social History Smoking Status: Former smoker alcohol intake: never substance use type: marijuana current occupational status: other Travel in the last 8 weeks: None household members: friend(s) housing: house current occupational exposures/hazards: No caffeine: No ROS Obtained: Yes All systems reviewed & no additional complaints except as documented Physical Exam General General appearance: alert Head Head exam: normocephalic Eye Eye exam: Present PERRL and EOMI; Absent scleral icterus ENT ENT exam: Present mucous membranes moist Neck Neck exam: Present trachea midline Respiratory Respiratory exam: Present normal lung sounds bilaterally; Absent respiratory distress Cardiovascular Cardiovascular exam: Present regular rate; Absent systolic murmur or rubs Abdominal Exam Abdominal exam: Present soft and tenderness; Absent guarding, rebound or rigidity Abdominal tenderness: Present epigastrium and moderate Extremities Exam Extremities exam: Present full ROM Neurological Exam Neurological exam: Present alert, oriented X3 and CN II-XII intact; Absent motor sensory deficit Psychiatric Psychiatric exam: Present normal affect Skin Skin exam: Absent rash Medical Decision Making Medical Recor
--- NOTE | 2023-01-12 21:02 | CT_ITS ---
PROCEDURE INFORMATION: Exam: CT Abdomen And Pelvis Without Contrast Exam date and time: 01/12/2023 9:17 PM Age: 32 years old Clinical indication: Abdominal pain TECHNIQUE: Imaging protocol: Computed tomography of the abdomen and pelvis without contrast. Radiation optimization: All CT scans at this facility use at least one of these dose optimization techniques: automated exposure control; mA and/or kV adjustment per patient size (includes targeted exams where dose is matched to clinical indication); or iterative reconstruction. REPORTING DATA: Count of CT and Cardiac NM exams in prior 12 months: This patient has received 2 known CTs and 0 known cardiac nuclear medicine studies in the 12 months prior to the current study. COMPARISON: MR ABDOMEN WO/W CON 11/20/2022 7:58 AM FINDINGS: Liver: Parenchymal enhancement is not evaluated without contrast. No hepatomegaly. Gallbladder and bile ducts: No calcified stones. No ductal dilation. Pancreas: Parenchymal enhancement is not evaluated without contrast. No ductal dilation. Spleen: Parenchymal enhancement is not evaluated without contrast. No splenomegaly. Adrenal glands: No mass. Kidneys and ureters: 13 mm hyperdense left renal nodule. Stomach and bowel: Moderate to large stool burden within the colon, particularly the rectosigmoid colon. Potential wall thickening of the distal transverse descending and proximal sigmoid colon which are decompressed and not well evaluated. Appendix: No evidence of appendicitis. Intraperitoneal space: No free air. No significant fluid collection. Vasculature: Limited evaluation without contrast. No abdominal aortic aneurysm. Lymph nodes: No enlarged lymph nodes. Urinary bladder: No acute abnormality. Reproductive: No acute abnormality. Bones/joints: No acute fracture. Soft tissues: Limited evaluation without contrast. No significant soft tissue swelling. IMPRESSION: 1. Moderate to large stool burden within the colon, particularly the rectosigmoid colon. 2. Potential wall thickening of the distal transverse descending and proximal sigmoid colon which may in part be secondary to underdistention however colitis should be clinically excluded. 3. 13 mm hyperdense left renal nodule better evaluated on prior MRI.
[2023-01-12 21:06] LABS: Basophils % 0.1 % (0.1-2.0); Eosinophils % 0.1 % (0.1-12.0); Hematocrit 45.6 % (42.0-52.0); Hemoglobin 15.3 g/dL (14.1-18.0); Lymphocytes # 1.5 K/mm3 (0.7-4.5); Lymphocytes % 7.2 % (10-50); Mean Corpuscular HGB Conc 33.5 g/dL (31.8-35.4); Mean Corpuscular Hemoglobin 27.7 pg (27.0-31.2); Mean Corpuscular Volume 82.6 fl (80-94); Monocytes # 0.7 K/mm3 (0.1-1.0); Monocytes % 3.3 % (1.7-9.3); Neutrophils # 18.9 K/mm3 (1.8-7.8); Neutrophils % 89.2 % (37.0-80.0); Platelet Count 397 K/mm3 (142-424); Red Blood Count 5.53 M/mm3 (4.60-6.20); Red Cell Distribution Width 13.2 % (11.5-17.5); White Blood Count 21.2 K/mm3 (4.8-10.8)
[2023-01-12 21:11] LABS: Chloride 97 mmol/L (98-107); MANUAL DIFFERENTIAL MANUAL DIFFERENTIAL (MANUAL DIFF); Sodium 139 mmol/L (136-145)
[2023-01-12 21:13] LABS: Amylase 147 U/L (30-110); Blood Urea Nitrogen 24 mg/dl (9-20); Creatinine Clearance Estimated 112 mL/min (50-200); Estimated Glomerular Filt Rate 87 ml/min (>60); GFR (African American) 105 ML/MIN (>60)
[2023-01-12 21:14] LABS: Alanine Aminotransferase 38 U/L (12-78); Albumin Level 4.7 g/dl (3.5-5.0); Albumin/Globulin Ratio 1.3 (1.1-1.8); Alkaline Phosphatase 125 U/L (38-126); Aspartate Amino Transferase 44 U/L (17-59); Bilirubin,Total 0.6 mg/dl (0.2-1.3); Calcium 9.7 mg/dl (8.4-10.2); Carbon Dioxide 25 mmol/L (22.0-30.0); Globulin 3.6 g/dL (1.3-3.2); Glucose 267 mg/dl (74-100); Lipase 56 U/L (23-300); Total Protein,Serum 8.3 g/dl (6.3-8.2)
[2023-01-12 21:15] LABS: Lactic Acid 2.4 mmol/L (0.7-2.1)
[2023-01-12 21:28] LABS: Acetone, Serum (Rapid) None Detected (None Detect)
[2023-01-12 21:30] VITALS: BP 140/83; PULSE 96; O2SAT 100
[2023-01-12 21:30] LABS: C-Reactive Protein 1.7 mg/L (0-4)
[2023-01-12 21:36] LABS: Lymphocytes % 7 % (10-50); Monocytes % 1 % (2-9); Neutrophils % 92 % (42-76); Platelet Estimate Normal; RBC Morphology Normal; Total Cells Counted 100
--- NOTE | 2023-01-12 21:39 | PC.NURSE ---
ROUNDED ON PT NOTHING NEEDED AT THIS TIME
[2023-01-12 21:41] LABS: Erythrocyte Sedimentation Rate 14 mm/hr (0-15)
[2023-01-12 21:45] LABS: Coronavirus 19, PCR Not Detected (NotDetected); Influenza A, PCR Not Detected (NotDetected); Influenza B, PCR Not Detected (NotDetected)
[2023-01-12 22:03] LABS: Adenovirus F 40/41, stool Not Detected (NotDetected); Astrovirus Not Detected (NotDetected); Campylobacter Not Detected (NotDetected); Clostridium Difficile A/B, PCR Not Detected (NotDetected); Cryptosporidium Not Detected (NotDetected); Cyclospora Cayetanesis Not Detected (NotDetected); Entamoeba histolytica Not Detected (NotDetected); Enteroaggregative E coli Not Detected (NotDetected); Enteropathogenic E coli Not Detected (NotDetected); Enterotoxigenic E coli Not Detected (NotDetected); Giardia lamblia Not Detected (NotDetected); Norovirus Not Detected (NotDetected); Plesimonas Shigalloides, PCR Not Detected (NotDetected); Rotavirus A Not Detected (NotDetected); Salmonella, PCR Not Detected (NotDetected); Sapovirus Not Detected (NotDetected); Shiga-like toxin E coli Not Detected (NotDetected); Shigella Enterovasive E coli Not Detected (NotDetected); Vibrio Cholerae Not Detected (NotDetected); Vibrio, PCR Not Detected (NotDetected); Yersinia Entercolitica, PCR Not Detected (NotDetected)
[2023-01-12 22:07] LABS: Occult Blood,Gastric Fluid Positive (Negative)
--- NOTE | 2023-01-12 22:34 | XR_ITS ---
PROCEDURE INFORMATION: Exam: XR Chest Exam date and time: 01/12/2023 10:47 PM Age: 32 years old Clinical indication: Other: N/v/d TECHNIQUE: Imaging protocol: Radiologic exam of the chest. Views: 1 view. COMPARISON: CR XR CHEST PORTABLE 12/10/2022 11:24 AM FINDINGS: Lungs: There is a 24 x 30 mm peripheral left midlung zone cavitary lesion similar to the prior exam. Subtle airspace disease is noted peripherally within the right midlung zone less apparent than on the prior exam. Pleural spaces: Unremarkable. No pleural effusion. No pneumothorax. Heart/Mediastinum: Unremarkable. No cardiomegaly. Vasculature: Unremarkable. Bones/joints: Unremarkable. IMPRESSION: 1. Persistent peripheral left midlung zone cavitary lesion. 2. Improvement in the peripheral right midlung zone airspace disease.
--- NOTE | 2023-01-12 22:46 | PC.NURSE ---
PT WAS LAYING IN BED STILL NAUSEA AND VOMITING , AT BS
--- NOTE | 2023-01-12 23:14 | PC.NURSE ---
Dr. Loja s/w hospitalist for possible admission
--- NOTE | 2023-01-12 23:19 | PC.NURSE ---
PATIENT ADMITTED OBSERVATION TO 207 WITH DX OF GASTRITIS TO SERVICE OF HOSPITALIST.
--- NOTE | 2023-01-12 23:30 | PC.NURSE ---
Pt called out for help, staff immediately at bedside. Pt sitting up in bed rocking and slapping himself in the chest stating, I think I'm having a reaction to whatever yall gave me. . He report anxiety, shakiness, and SOA. He began to vomiting again. Cold wash cloth given to pt. He was beginning to feel a little better. notified of the above information and ordered Benadryl 25mg IVP 1x.
[2023-01-12 23:36] VITALS: BP 160/86; PULSE 92; O2SAT 97
--- NOTE | 2023-01-12 23:46 | PC.NURSE ---
Report given to Freddie GALDAMEZ on med-surg
[2023-01-13] VITALS (7 sets, daily range): BP systolic 112–140; BP diastolic 56–78; PULSE 105–126; RESP 16–20; TEMP 36.8–37.7; O2SAT 95–98
--- NOTE | 2023-01-13 | PC.NURSE ---
Pt arrived to floor via wheelchair @ 1545
[2023-01-13 00:50] LABS: Reflex Lactic Add Lactic Reflex
--- NOTE | 2023-01-13 00:50 | EXP.HP ---
History of Present Illness *Admission Date: 01/13/23 *Reason for visit:: Emesis *History of present illness: 32 year old male who presented to ED for c/o nausea and vomiting that started Saturday morning. PMHX of DM1, cavity lesion of left lung and pneumonia of right lung, tobacco and cannabis abuse. The stated that his nausea and vomiting started Saturday morning. He last smoked cannabis on Saturday morning. This evening his abdomen started hurting as well as having diarrhea. Pt denies CP, fever, recent sick exposure, or other known illness. He states he has vomited several times and pain is located in his upper abdomen. Upon ED work the pt was found to be hyperglycemic with an elevated anion gap. Acetone was negative. Pt failed ED discharge due to failure in relief of vomiting. Pt's CT of the abdomen revealed possible colitis and the patient has an elevated WBC. The ED physician spoke with hospitalist team for admission. The patient was medical admitted and will receive fluids, antiemetic therpay, antibiotics, and PPI coverage. [facility] Disclaimer: The information contained in this section may have been updated after the patient was seen, as this information can be updated by other users. Medical History Anterior pleuritic pain Pneumonia Pneumonia with cavity of lung Pneumonia with cavity of lung Surgical History History of appendectomy Family History Other Family history non-contributory Social History Smoking Status: Former smoker alcohol intake: never substance use type: marijuana current occupational status: other Travel in the last 8 weeks: None household members: friend(s) housing: house current occupational exposures/hazards: No caffeine: No Review of Systems Review of Systems Review of systems:: pertinent systems reviewed and negative unless documented below Constitutional Constitutional: Reports lethargy Eyes Eyes: Reports system reviewed and no additional complaints, except as documented ENT Ears, Nose, Mouth, and Throat: Reports system reviewed and no additional complaints, except as documented *Cardiovascular Cardiovascular: Reports system reviewed and no additional complaints, except as documented *Respiratory Respiratory: Reports system reviewed and no additional complaints, except as documented *Gastrointestinal Gastrointestinal: Reports diarrhea, Reports nausea and Reports vomiting *Genitourinary Genitourinary: Reports system reviewed and no additional complaints, except as documented *Musculoskeletal Musculoskeletal: Reports system reviewed and no additional complaints, except as documented Integumentary/Breasts Skin/Breast: Reports system reviewed and no additional complaints, except as documented *Neurologic Neurologic: Reports system reviewed and no additional complaints, except as documented Meds Home Medications and Allergies Home Medications Medication Instructions Recorded Confirmed Type ibuprofen 600 mg tablet 600 mg PO Q6HP PRN Moderate Pain 10/25/22 01/12/23 Rx #20 tabs insulin regular human 100 unit/mL 10 - 15 unit (0.1 - 0.15 mL) SQ 11/26/22 01/12/23 Rx injection solution QID Diabetes #10 mL cholecalciferol (vitamin D3) 1,250 1,250 mcg PO WEEKLY Supplement 12/06/22 01/12/23 History mcg (50,000 unit) capsule insulin glargine 100 unit/mL 20 unit SQ BID Diabetes 12/06/22 01/12/23 History subcutaneous solution (Lantus U-100 Insulin) amoxicillin 500 mg-potassium 1 tab PO Q8H Infection 01/12/23 01/12/23 History clavulanate 125 mg tablet (Augmentin) gabapentin 600 mg tablet 600 mg PO HS Restless leg 01/12/23 01/12/23 History New Prescriptions to Start Prescriptions: Allergies Allergy/AdvReac Type Severity Reaction Status Date / Time pro
[2023-01-13 01:26] LABS: POC Glucose,Bedside 312 (70-110)
[2023-01-13 01:49] LABS: Lactic Acid Follow Up (RFLX 1) 1.1 mmol/L (0.7-2.1)
[2023-01-13 05:21] LABS: POC Glucose,Bedside 147 (70-110)
[2023-01-13 08:11] LABS: Basophils % 0.1 % (0.1-2.0); Eosinophils % 0.1 % (0.1-12.0); Hematocrit 37.7 % (42.0-52.0); Lymphocytes # 1.9 K/mm3 (0.7-4.5); Lymphocytes % 11.9 % (10-50); Mean Corpuscular HGB Conc 33.4 g/dL (31.8-35.4); Mean Corpuscular Hemoglobin 27.5 pg (27.0-31.2); Mean Corpuscular Volume 82.3 fl (80-94); Mean Platelet Volume 9.1 fl (7.4-10.4); Monocytes # 0.7 K/mm3 (0.1-1.0); Monocytes % 4.7 % (1.7-9.3); Neutrophils # 13.3 K/mm3 (1.8-7.8); Neutrophils % 83.3 % (37.0-80.0); Platelet Count 339 K/mm3 (142-424); Red Blood Count 4.58 M/mm3 (4.60-6.20); Red Cell Distribution Width 13.4 % (11.5-17.5)
[2023-01-13 08:26] LABS: Chloride 103 mmol/L (98-107); Potassium 3.9 mmoL/L (3.5-5.1); Sodium 140 mmol/L (136-145)
[2023-01-13 08:29] LABS: Blood Urea Nitrogen 23 mg/dl (9-20); Creatinine Clearance Estimated 103 mL/min (50-200); Estimated Glomerular Filt Rate 87 ml/min (>60); GFR (African American) 105 ML/MIN (>60)
[2023-01-13 08:30] LABS: Anion Gap 15.9 mEq/L (5-15); Calcium 8.7 mg/dl (8.4-10.2); Carbon Dioxide 25 mmol/L (22.0-30.0); Glucose 160 mg/dl (74-100); Magnesium 1.6 mg/dl (1.6-2.3)
[2023-01-13 08:33] LABS: MANUAL DIFFERENTIAL MANUAL DIFFERENTIAL (MANUAL DIFF)
--- NOTE | 2023-01-13 10:35 | HMH.PHAINT1 ---
Pharmacy Intervention Comments: MEDICATION RECONCILIATION COMPLETE USING EXTERNAL PHARMACY FILL HISTORY AND MOST RECENT MD OFFICE VISIT (12/2022)
[2023-01-13 10:43] LABS: Lymphocytes % 14 % (10-50); Monocytes % 5 % (2-9); Neutrophils % 81 % (42-76); Platelet Estimate Normal; RBC Morphology Normal; Total Cells Counted 100
[2023-01-13 11:29] LABS: Hemoglobin 12.6 g/dL (14.1-18.0)
[2023-01-13 11:41] LABS: POC Glucose,Bedside 222 (70-110)
--- NOTE | 2023-01-13 15:26 | PC.NURSE ---
pt has had 3-4 episodes of n/v. x2 episodes of diarrhea, one of the times uncontrolled. c/o pain x1. during morning rounds pt stated he felt much better, no n/v but did c/o pain. 5 minutes after leaving pts room he began vomited and it has continued t/o shift. treating per sep. pts girlfriend at bedside.
--- NOTE | 2023-01-13 16:00 | EXP.ACUTE.PN ---
Subjective *Date: 01/13/23 *Time: 16:00 Interval history: Patient from [facility] throughout the day but in the afternoon suddenly he vomited twice and has had episode of diarrhea. During the morning rounds patient was resting in the bed in the afternoon he looked sick. Medical Exam Vital signs and Labs for Last 24 Hours: Vital Signs Temp Pulse Pulse Resp BP BP Pulse Ox 01/13/23 15:32 98.9 F 126 H 19 136/74 97 01/13/23 07:27 98.3 F 111 H 18 130/65 98 01/13/23 03:52 99.3 F 109 H 18 112/56 L 97 01/13/23 00:16 98.4 F 124 H 19 136/76 01/13/23 00:07 98.2 F 105 H 16 138/78 97 01/12/23 23:36 92 H 160/86 H 97 01/12/23 21:30 96 H 140/83 100 01/12/23 21:00 96 H 121/72 98 01/12/23 20:27 97.6 F 110 H 22 138/79 100 Intake and Output 01/13/23 01/13/23 01/13/23 07:59 15:59 23:59 Intake Total 3283 / 3283 0 / 3283 Balance 3283 / 3283 0 / 3283 Intake: Intake, Oral Amount 0 / 0 Intake, Total IV Amount 3283 / 3283 Lactated Ringers 1000ML 1,000 133 / 133 ml @ 50 mls/hr IV .Q20H LENA Rx# :[id number] Levofloxacin/D5w 250 mg In 50 50 / 50 ml @ 100 mls/hr IV Q24H LENA Rx# :[id number] Metronidaz/Sod Chl 500 mg In 100 / 100 100 ml @ 100 mls/hr IV Q12H LENA Rx#:[id number] Other: Number of Bowel Movements 1 Weight 68.492 kg Patient Weight 01/13/23 23:59 Weight 68.492 kg Laboratory Results - last 24 hr 01/12/23 20:32: POC Glucose 263 H 01/12/23 20:38: WBC 21.2 H*, RBC 5.53, Hgb 15.3, Hct 45.6, MCV 82.6, MCH 27.7, MCHC 33.5, RDW 13.2, Plt Count 397, MPV 9.0, Neut % (Auto) 89.2 H, Lymph % (Auto) 7.2 L, [place] % (Auto) 3.3, Eos % (Auto) 0.1, Baso % (Auto) 0.1, Neut # (Auto) 18.9 H, Lymph # (Auto) 1.5, [place] # (Auto) 0.7, Eos # (Auto) 0.0, Baso # (Auto) 0.0, Total Counted 100, Neutrophils % (Manual) 92 H, Lymphocytes % (Manual) 7 L, Monocytes % (Manual) 1 L, Platelet Estimate Normal, RBC Morphology Normal, ESR 14 01/12/23 20:38: Sodium 139, Potassium 4.0, Chloride 97 L, Carbon Dioxide 25, Anion Gap 21.0 H, BUN 24 H, Creatinine 1.00, Estimated Creat Clear 112, Estimated GFR 87, Est GFR ( Amer) 105, Glucose 267 H, Calcium 9.7, Total Bilirubin 0.6, AST 44, ALT 38, Alkaline Phosphatase 125, C-Reactive Protein 1.7, Total Protein 8.3 H, Albumin 4.7, Globulin 3.6 H, Albumin/Globulin Ratio 1.3, Amylase 147 H, Lipase 56 01/12/23 20:38: Lactate 2.4 H 01/12/23 20:38: Acetone Level None detected 01/12/23 21:40: SARS-CoV-2 (PCR) Not detected, Influenza A Untype (PCR) Not detected, Influenza Type B (PCR) Not detected 01/12/23 21:57: Stl Aeromonas (PCR) Not detected, Stl C. cayetanensis PCR Not detected, Stool Rotavirus (PCR) Not detected, Stl Adenov F 40/41 PCR Not detected, Stool Astrovirus (PCR) Not detected, Stool Campylobacter PCR Not detected, Stl C.difficile Tox PCR Not detected, Stool Cryptosporidium PCR Not detected, Stl E.coli Shiga Tox PCR Not detected, Stool E coli O157 PCR Not detected, Stl Enterotoxigenic E PCR Not detected, Stool EPEC (PCR) Not detected, Stool EAEC (PCR) Not detected, Stl E. histolytica PCR Not detected, Stool Giardia Lamblia PCR Not detected, Stool Salmonella PCR Not detected, Stool Sapovirus (PCR) Not detected, Stl P. shigelloides PCR Not detected, Stl Shigella/EIEC PCR Not detected, St Y.enterocolitica PCR Not detected, Stool Vibrio (PCR) Not detected, Stl Vibrio cholerae PCR Not detected, Stl Norovirus GI/GII PCR Not detected 01/12/23 21:57: Gastric Occult Blood Positive 01/13/23 01:18: POC Glucose 312 H* 01/13/23 01:20: Lactate 1.1 01/13/23 05:13: POC Glucose 147 H 01/13/23 07:25: WBC 16.0 H, RBC 4.58 L, Hgb 12.6 L D, Hct 37.7 L, MCV 82.3, MCH 27.5, MCHC 33.4, RDW 13.4, Plt Count 339, MPV 9.1, Neut % (Auto) 83.3 H, Lymph % (Auto) 11.9, [place] % (Auto) 4.7, Eos % (Auto) 0.1, Baso % (Auto) 0.1, Neut # (Auto) 13.3 H, Lymph # (Auto) 1.9, [place] # (Auto) 0.7, Eos # (Auto) 0.0, Baso # (Auto) 0.0, Total Counted
--- NOTE | 2023-01-13 17:22 | PC.NURSE ---
tech came out in the hallway and states the pt is lying on the floor getting sick. girlfriend stated he got down in the floor to puke over the trash can and laid down beside it. girlfriend states he did not fall, he did not hit his head, he just laid down. pt states he is very tired and weak from the n/v. upon visualizing pt he appears pale, shacking, clammy to touch. pt has been having brownish colored emesis. pt remains a&o, assisted back to bed. vs slightly elevated as expected due to the dry heaving/vomiting. notified of all of this. pts vomiting has gotten worse toward the end of shift. treated with meds on sep. pt still vomiting after meds admin. called , prescribed compazine. compazine admin in ED, pt stated it made him anxious, sob, tachycardic therefore it was put on allergy list. notified of all this, md stated to go ahead and give compazine since pt was already experiencing these symptoms. admin compazine, 15mins later, pt still has n/v but states the compazine is helping. after admin compazine pt was still having n/v, called to bedside. states to cont to monitor ot for the next 2 hrs and then will reevaluate. [id number]- pt laying in bed sleeping at this time
--- NOTE | 2023-01-13 17:42 | PC.NURSE ---
per md increase ivmf to 100ml/hr
[2023-01-13 19:11] LABS: POC Glucose,Bedside 256 (70-110)
--- NOTE | 2023-01-13 21:20 | PC.NURSE ---
Pt and family member at bedside notified that we still need a urine sample. Pt verbalizes understanding. Specimen cup is at bedside.
--- NOTE | 2023-01-13 22:57 | PC.NURSE ---
[facility] has accepted patient for transfer per hospitalist, waiting for bed availability
--- NOTE | 2023-01-13 23:47 | PC.NURSE ---
Notified Ming CHAN that pt was actively having n/v, no PRN medication due yet. Pt also yelling out in pain, only PO pain medication ordered.
--- NOTE | 2023-01-13 23:54 | EXP.EVENT.NO ---
Called to room due to abd pain and nausea. Upon assessment pt's has bowel sounds in all four quadrants, abdomen is soft, non distended. Abdomen is tender to palpation all over. dose of phengran 25mg IV ordered.
--- NOTE | 2023-01-14 01:04 | EXP.DC.SUM ---
General Admission date:: 01/13/23 Discharge date: 01/14/23 HPI HPI HPI: 32 year old male who presented to ED for c/o nausea and vomiting that started Saturday morning. PMHX of DM1, cavity lesion of left lung and pneumonia of right lung, tobacco and cannabis abuse. The stated that his nausea and vomiting started Saturday morning. He last smoked cannabis on Saturday morning. This evening his abdomen started hurting as well as having diarrhea. Pt denies CP, fever, recent sick exposure, or other known illness. He states he has vomited several times and pain is located in his upper abdomen. Upon ED work the pt was found to be hyperglycemic with an elevated anion gap. Acetone was negative. Pt failed ED discharge due to failure in relief of vomiting. Pt's CT of the abdomen revealed possible colitis and the patient has an elevated WBC. The ED physician spoke with hospitalist team for admission. The patient was medical admitted and will receive fluids, antiemetic therpay, antibiotics, and PPI coverage. Hospital Course Hospital Course Hospital Course: 32 year old male who presented to ED for c/o nausea and vomiting that started Saturday morning 01/11. PMHX of DM1, cavity lesion of left lung and pneumonia of right lung, tobacco and cannabis abuse. The stated that his nausea and vomiting started Saturday morning. He last smoked cannabis on Saturday. Saturday evening 01/12 his abdomen started hurting as well as having diarrhea. Pt denies CP, fever, recent sick exposure, or other known illness. He states he has vomited several times and pain is located in his upper abdomen. Upon ED work the pt was found to be hyperglycemic with an elevated anion gap. Acetone was negative. Pt failed ED discharge due to failure in relief of vomiting. Pt's CT of the abdomen revealed possible colitis and the patient has an elevated WBC. The ED physician spoke with hospitalist team for admission. The patient was medical admitted and will receive fluids, antiemetic therpay, antibiotics, and PPI coverage. On 01/12 patient was started on levaquin and metronidazole for possible colitis, diarrhea panel pending, NPO with IV fluid replacement, and antiemetics. 01/13 leukocyotosis improved from 21-16. Pt remain on SSI with strict control. Acetone were negative on admission. GAP trended down. During the evening the patient and mother started expressing concerns that patient needed treatment in [place] for nausea and vomiting. They felt care would be better somewhere else. Abdominal exam this evening revealed soft, non distended, with bowel sounds in all four quadrants. Patient does c/o tenderness all over with palpation. The mother requested that i attempted to transfer the patient to a hospital in [place]. [facility] accepted the patient and the patient will be transferred to their medical floor to continue care. Their hospitalist team accepted the patient, Dr. Figueroa. Exam Data for Last 24 hours Vital signs and Labs for Last 24 Hours: Temp Pulse Resp BP Pulse Ox 99.8 F H 124 H 20 140/69 95 01/13/23 19:42 01/13/23 19:42 01/13/23 19:42 01/13/23 19:42 01/13/23 20:00 Laboratory Results - last 24 hr 01/13/23 01:18: POC Glucose 312 H* 01/13/23 01:20: Lactate 1.1 01/13/23 05:13: POC Glucose 147 H 01/13/23 07:25: WBC 16.0 H, RBC 4.58 L, Hgb 12.6 L D, Hct 37.7 L, MCV 82.3, MCH 27.5, MCHC 33.4, RDW 13.4, Plt Count 339, MPV 9.1, Neut % (Auto) 83.3 H, Lymph % (Auto) 11.9, [place] % (Auto) 4.7, Eos % (Auto) 0.1, Baso % (Auto) 0.1, Neut # (Auto) 13.3 H, Lymph # (Auto) 1.9, [place] # (Auto) 0.7, Eos # (Auto) 0.0, Baso # (Auto) 0.0, Total Counted 100, Neutrophils % (Manual) 81 H, Lymphocytes % (Manual) 14, Monocytes % (Manual) 5, Platelet Estimate Normal, RBC Morphology Normal 01/13/23 07:25: Sodium 140, Potassium 3.9, Chloride 103, Carbon Dioxide 25, Anion Gap 15.9 H, BUN 23 H, Creatinine 1.00, Estimated Creat Clear 103, Estimated GFR 87, Est GFR ( Amer) 105, Glucose 160 H D, Calcium 8.7,
[2023-01-14 04:00] VITALS: BP 152/84; PULSE 133; RESP 22; TEMP 36.9; O2SAT 97; BMI 19.7
--- NOTE | 2023-01-14 04:05 | PC.NURSE ---
Pt has been received a bed at [facility] in unit 4A face sheet faxed to [facility].
--- NOTE | 2023-01-14 04:08 | PC.NURSE ---
[id number] Notified Ming RN UROLOGY that pt was actively having n/v and did not have PRN nause medication available yet. Also notified RN UROLOGY of HR 133 and no ourine output t/o shift thus far. Body Rolling Machine Tender states it is ok to give Zofran 4mg 1 hr early at this time. Also states to bladder scan pt and to call back with results. When entering room with bladder scanner, pt was notified of need to bladder scan due to no urine output over several hours. Pt then states that he has been able to urinate a a couple time in the past few hours. Pt estimates the last time he urinated was 2-3 hours ago. Pt notified of need for urine sample again. Specimen cup at bedside.
--- NOTE | 2023-01-14 04:42 | PC.NURSE ---
Called and gave report to [facility] to [facility] GALDAMEZ and will be going to room [id number]
[2023-01-14 06:38] LABS: Basophils % 0.1 % (0.1-2.0); Hematocrit 38.3 % (42.0-52.0); Hemoglobin 12.6 g/dL (14.1-18.0); Lymphocytes # 1.3 K/mm3 (0.7-4.5); Lymphocytes % 6.9 % (10-50); Mean Corpuscular HGB Conc 32.8 g/dL (31.8-35.4); Mean Corpuscular Hemoglobin 28.3 pg (27.0-31.2); Mean Corpuscular Volume 86.1 fl (80-94); Monocytes # 0.8 K/mm3 (0.1-1.0); Monocytes % 4.4 % (1.7-9.3); Neutrophils # 16.8 K/mm3 (1.8-7.8); Neutrophils % 88.5 % (37.0-80.0); Platelet Count 316 K/mm3 (142-424); Red Blood Count 4.45 M/mm3 (4.60-6.20); Red Cell Distribution Width 13.5 % (11.5-17.5)
[2023-01-14 06:44] LABS: Chloride 98 mmol/L (98-107); Potassium 3.9 mmoL/L (3.5-5.1); Sodium 139 mmol/L (136-145)
[2023-01-14 06:47] LABS: Anion Gap 21.9 mEq/L (5-15); Blood Urea Nitrogen 23 mg/dl (9-20); Calcium 8.9 mg/dl (8.4-10.2); Carbon Dioxide 23 mmol/L (22.0-30.0); Creatinine Clearance Estimated 101 mL/min (50-200); Estimated Glomerular Filt Rate 87 ml/min (>60); GFR (African American) 105 ML/MIN (>60); Glucose 333 mg/dl (74-100)
[2023-01-14 07:17] LABS: MANUAL DIFFERENTIAL MANUAL DIFFERENTIAL (MANUAL DIFF)
[2023-01-14 08:29] LABS: Lymphocytes % 12 % (10-50); Monocytes % 4 % (2-9); Neutrophils % 84 % (42-76); Platelet Estimate Normal; RBC Morphology Normal; Total Cells Counted 100
[2023-01-14 12:05] LABS: POC Glucose,Bedside 191 (70-110)
[2023-01-14 12:06] LABS: POC Glucose,Bedside 335 (70-110)
== END 2023-01-14 09:09 | disposition home or self-care (01) ==
LOC: ER 21:27 → 2ND 23:44
PROVIDERS: Family Medicine; Nurse Practitioner Critical Care Medicine; Admitting Provider Internal Medicine; Emergency Provider Emergency Medicine; PCP Emergency Medicine; Visit Provider Internal Medicine
DX: K29.70 Gastritis, unspecified, without bleeding (principal); F12.10 Cannabis abuse, uncomplicated; J18.9 Pneumonia, unspecified organism; E11.9 Type 2 diabetes mellitus without complications; F17.210 Nicotine dependence, cigarettes, uncomplicated; Z79.4 Long term (current) use of insulin; Z79.899 Other long term (current) drug therapy; J98.4 Other disorders of lung
CPT/HCPCS: 36415; 71045; 74176; 80048; 80053; 82009; 82150; 82272; 82962; 83605; 83690; 83735; 85007; 85025; 85651; 86140; 87507; 87635; 87636; 99285; C9803; G0328; G0378; J1956; J2405; U0003; U0005

== ENCOUNTER → 2023-04-24 12:00 | Outpatient (CLI) | payer BC, SELFPAY ==
[2023-04-24 15:19] LABS: Basophils % 0.5 % (0.1-2.0); Eosinophils # 0.2 K/mm3 (0.0-0.4); Hemoglobin 15.1 g/dL (14.1-18.0); Lymphocytes # 2.5 K/mm3 (0.7-4.5); Lymphocytes % 42.8 % (10-50); Mean Corpuscular HGB Conc 32.7 g/dL (31.8-35.4); Mean Corpuscular Hemoglobin 28.5 pg (27.0-31.2); Mean Platelet Volume 9.2 fl (7.4-10.4); Monocytes # 0.4 K/mm3 (0.1-1.0); Monocytes % 6.8 % (1.7-9.3); Neutrophils # 2.7 K/mm3 (1.8-7.8); Neutrophils % 46.9 % (37.0-80.0); Platelet Count 360 K/mm3 (142-424); Red Blood Count 5.29 M/mm3 (4.60-6.20); Red Cell Distribution Width 13.2 % (11.5-17.5); White Blood Count 5.7 K/mm3 (4.8-10.8)
[2023-04-24 15:28] LABS: Alanine Aminotransferase 34 U/L (12-78); Albumin Level 4.2 g/dl (3.5-5.0); Albumin/Globulin Ratio 1.3 (1.1-1.8); Alkaline Phosphatase 92 U/L (38-126); Anion Gap 12.1 mEq/L (5-15); Aspartate Amino Transferase 31 U/L (17-59); Bilirubin,Total 0.4 mg/dl (0.2-1.3); Blood Urea Nitrogen 18 mg/dl (9-20); Calcium 8.9 mg/dl (8.4-10.2); Carbon Dioxide 33 mmol/L (22.0-30.0); Chloride 100 mmol/L (98-107); Estimated Glomerular Filt Rate 87 ml/min (>60); GFR (African American) 105 ML/MIN (>60); Globulin 3.2 g/dL (1.3-3.2); Glucose 86 mg/dl (74-100); Potassium 4.1 mmoL/L (3.5-5.1); Sodium 141 mmol/L (136-145); Total Protein,Serum 7.4 g/dl (6.3-8.2)
[2023-04-24 15:40] LABS: 25-OH Vitamin D, Total 42.8 ng/mL (30-100)
[2023-04-24 16:29] LABS: Hemoglobin A1C 7.6 % (4.0-6.0)
[2023-04-24 20:28] LABS: Creatinine,Urine Random 216 mg/dL (Not Estab.); Microalbumin/Creatinine Ratio 45.9
== END ==
PROVIDERS: PCP Emergency Medicine; Visit Provider Internal Medicine
DX: E11.9 Type 2 diabetes mellitus without complications (principal); E55.9 Vitamin D deficiency, unspecified; Z79.84 Long term (current) use of oral hypoglycemic drugs
CPT/HCPCS: 80053; 82043; 82306; 82570; 83036; 84443; 85025

== ENCOUNTER 2023-08-04 12:15 | Inpatient (IN) | payer BC, SELFPAY ==
[2023-08-04] VITALS (12 sets, daily range): BP systolic 98–158; BP diastolic 68–97; PULSE 97–161; RESP 18–23; TEMP 36.6–37.2; O2SAT 95–100; BMI 17.2; BMI 18.2
--- NOTE | 2023-08-04 12:20 | ECG_ITS ---
APPROVED REPORT Exam: Resting ECG HR:120 bpm ECG Measurements Heart Rate 120 AXES SD 117 P 85 QRSd 86 QRS 69 QT 332 T 70 QTc 403 Conclusion SINUS TACHYCARDIA WITH SHORT SD INTERVAL NONSPECIFIC ST & T-WAVE ABNORMALITY ABNORMAL RHYTHM ECG UNCONFIRMED REPORT Electronically signed by : Prashant Hanson MD 08/04/2023 15:09:56
--- NOTE | 2023-08-04 12:50 | ED_ITS ---
Discharge Plan Disposition Patient Disposition: Still a Patient Clinical Impressions Clinical Impression: Nausea vomiting and diarrhea, Acute dehydration, Tachycardia Discharge ED Provider: Mignon Dumas General Adult HPI <Mignon Dumas MD - Last Filed: 08/04/23 15:13> General Chief complaint: Nausea/Vomiting/Diarrhea Stated complaint: vomiting, chills, diarrea, Type 1 diabetic Time Seen by Provider: 08/04/23 12:45 History of Present Illness HPI narrative: Patient is a 32-year-old male with a history of cannabinol hyperemesis also with type 1 diabetes history of DKA presenting today with nausea vomiting diarrhea he states feels very similar to DKA in the past his blood sugars been running in the 300s since this episode. Denies any fevers or chills or any preceding infectious symptoms. Related Data Home Medications Medication Instructions Recorded Confirmed cholecalciferol (vitamin D3) 1,250 1,250 mcg PO WEEKLY Supplement 12/06/22 05/09/23 mcg (50,000 unit) capsule gabapentin 600 mg tablet 600 mg PO HS NERVE PAIN 01/12/23 05/09/23 Previous Rx's Medication Instructions Recorded ibuprofen 600 mg tablet 600 mg PO Q6HP PRN Moderate Pain 10/25/22 #20 tabs gabapentin 300 mg capsule 300 mg PO TID neuropathic pain 04/24/23 #120 caps insulin glargine 100 unit/mL 20 unit (0.2 mL) SQ BID Diabetes 04/24/23 subcutaneous solution (Lantus 30 days #12 mL U-100 Insulin) insulin regular human 100 unit/mL 10 - 15 unit (0.1 - 0.15 mL) SQ 04/24/23 injection solution QID Diabetes 30 days #10 mL Allergies Allergy/AdvReac Type Severity Reaction Status Date / Time metoclopramide AdvReac Anxiety Verified 05/09/23 11:11 PFSH <Mignon Dumas MD - Last Filed: 08/04/23 15:13> [facility] Disclaimer: The information contained in this section may have been updated after the patient was seen, as this information can be updated by other users. Medical History Abscess Abscess of finger of right hand Anterior pleuritic pain DKA, type 1 Improving. 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 Pneumonia Pneumonia with cavity of lung Vomiting alone Surgical History History of appendectomy Family History Other Family history non-contributory Social History Smoking Status: Current every day smoker alcohol intake: never substance use type: marijuana current occupational status: other Travel in the last 8 weeks: None household members: friend(s) housing: house current occupational exposures/hazards: No caffeine: No <Mignon Dumas MD - Last Filed: 08/04/23 15:13> ROS Obtained: Yes All systems reviewed & no additional complaints except as documented Physical Exam <Mignon Dumas MD - Last Filed: 08/04/23 15:13> General General appearance: alert and anxious (Actively vomiting) Respiratory Respiratory exam: Present normal lung sounds bilaterally; Absent respiratory distress Cardiovascular Cardiovascular exam: Present tachycardia Abdominal Exam Abdominal exam: Present soft; Absent distention or tenderness Neurological Exam Neurological exam: Present alert and oriented X3 Medical Decision Making <Mignon Dumas MD - Last Filed: 08/04/23 15:13> Chas Inquiry Pt receiving controlled substance: No Vital Signs: 08/04/23 12:16 08/04/23 15:53 Temperature 97.8 F Temperature Source Oral Pulse Rate 105 H Pulse Rate [Apical] 132 H Respiratory Rate 20 Blood Pressure [Right Arm] 126/90 Blood Pressure Mean [Right Arm] 102 Blood Pressure Source [Right Arm] Automatic Cuff Blood Pressure Position [Right Arm] Sitting 02 Sat by Pulse Oximetry 98 Oxygen Delivery Method Room Air Lab Data Lab results reviewed: Yes I reviewed the patient's lab results. Lab Results 08/04/23 12:21: WBC 25.6 H*, RBC 5.10, Hgb 15.5, Hct 43.5, MCV 85.2, MCH 30.3, MCHC 35.6 H, RDW 13.2, Plt Count 335, MPV 9.9, Neut % (Auto) 93.9 H, Lymph % (Auto) 3.6 L, [place] % (Auto) 2.2, Eos % (Auto) 0.1, Baso % (Auto) 0.1, Neut # (Auto) 24.0 H, Lymph # (Auto) 0.9, [place] # (Auto) 0.6, Eos # (Auto) 0.0, Baso # (Auto) 0.0, Total Counted 100, Neutrophils % (Manual) 86 H, Lymphocytes % (Manual) 12, Monocytes % (Manual) 2, Platelet Estimate Normal, RBC Morphology Normal, Sodium 141, Potassium 4.3, Chloride 103, Carbon Dioxide 20 L, Anion Gap 22.3 H, BUN 31 H, Creatinine 1.10, Estimated GFR 78, Est GFR ( Amer) 94, Glucose 357 H, Calcium 9.5, Phosphorus 3.3, Magnesium 1.8, Total Bilirubin 0.8, AST 49, ALT 51, Alkaline Phosphatase 125, Total Protein 8.2, Albumin 4.8, Globulin 3.4 H, Albumin/Globulin Ratio 1.4, Lipase 31 08/04/23 12:50: VBG pH 7.47 H, VBG pCO2 26.9 L, VBG pO2 158.9 H, VBG HCO3 19.2 L , VBG Total CO2 20.1 L, VBG O2 Saturation 99.3 H, VBG Base Excess -4.4 L 08/04/23 12:21 08/04/23 12:21 Orders (Tests/Meds): ED MEDICATIONS Generic Name Dose Route Start Last Admin Trade Name Ayan PRN Reason Stop Dose Admin Gabapentin 600 mg 08/04/23 21:00 Gabapentin 600mg Tablet PO 09/03/23 20:59 HS LENA Gabapentin 300 mg 08/05/23 09:00 Gabapentin 300mg Capsule PO 09/04/23 08:59 0900,1500 LENA Lactated Ringer's 1,000 mls @ 150 mls/hr 08/04/23 16:30 Lactated Ringer's 1000 Ml Bag IV 08/04/23 23:09 .Q6H40M LENA Insulin Glargine 20 unit 08/04/23 21:00 Insulin Glargine 100 Units/Ml 10ml Vial SQ 09/03/23 20:59 BID LENA Insulin Human Lispro 0 unit 08/04/23 16:30 Humalog 100 Units/Ml 3ml Vial (Ssi) SQ 09/03/23 16:29 ACHS [facility] Protocol Ondansetron HCl 4 mg 08/04/23 16:21 Ondansetron 4mg/2ml Vial IV 09/03/23 16:20 Q6HP PRN Nausea Sodium Chloride 10 ml 08/04/23 13:53 Sodium Chloride 0.9% 10ml Vial IV 09/03/23 13:52 NEEDED PRN to Dilute Lorazepam inj Discontinued Medications Generic Name Dose Route Start Last Admin Trade Name Freq PRN Reason Stop Dose Admin Droperidol 2.5 mg 08/04/23 13:22 08/04/23 13:28 Droperidol 5mg/2ml Vial IV 08/04/23 13:23 2.5 mg ONCE ONE Administration Gabapentin 300 mg 08/04/23 21:00 Gabapentin 300mg Capsule PO 09/03/23 20:59 TID LENA Lactated Ringer's 1,000 mls @ 999 mls/hr 08/04/23 13:00 08/04/23 13:28 Lactated Ringer's 1000 Ml Bag IV 08/04/23 15:00 999 mls/hr .Q1H1M LENA Administration Lorazepam 1 mg 08/04/23 13:53 08/04/23 14:15 Lorazepam 2mg/Ml Vial IV 08/04/23 13:54 1 mg ONCE ONE Administration Ondansetron HCl 4 mg 08/04/23 12:50 08/04/23 13:10 Ondansetron 4mg/2ml Vial IV 08/04/23 12:51 4 mg ONCE ONE Administration ORDERS Category Date Time Status Basic Metabolic Panel Routine Lab 08/04/23 22:00 Ordered CBC w/Auto Diff [Complete Blood Count Auto Diff] Stat Lab 08/04/23 12:21 Completed CMP [Comprehensive Metabolic Panel] Stat Lab 08/04/23 12:21 Completed Complete Blood Count Auto Diff AMLAB Lab 08/05/23 06:00 Ordered Comprehensive Metabolic Panel AMLAB Lab 08/05/23 06:00 Ordered Lipase Stat Lab 08/04/23 12:21 Completed Magnesium AMLAB Lab 08/05/23 06:00 Ordered Magnesium Stat Lab 08/04/23 12:21 Completed Phosphorous Stat Lab 08/04/23 12:21 Completed Venous Blood Gas Stat RT 08/04/23 12:50 Completed ECG initial Bess[place] Routine Y 08/04/23 12:20 Completed Medical Decision Narrative: 32-year-old male presents today with nausea vomiting diarrhea tachycardia he is clinically dehydrated abdominal exam is benign differential includes cannabinol hyperemesis, viral gastroenteritis, DKA etc. Will get labs give 2 L of IV fluids IV Zofran and reassess. EKG was performed which I personally interpreted shows a ventricular rate of 120 sinus tachycardia there is a short RI interval but no delta wave nonspecific ST disturbance but no definitive evidence of significant ST depression or elevation normal axis. Reassessment 154 no evidence of DKA. Patient continues to retch despite Zofran then droperidol now has been given IV Ativan. ED observation order placed at 154 pending reassessment after these medications. Reassessment 312 patient's nausea is mildly improved but he is persistently tachycardic he has refused another IV so far and his fluids are going very slowly however he needs to have another IV placed and we have had a discussion with him we will try to place a second IV to administer more fluids. He still needs likely at least 2 L of IV fluids he is in observation status at the moment in the emergency department. He has nonspecific leukocytosis again his abdominal exam is benign I suspect this is on the spectrum of cannabinol hyperemesis with his history. Once his vitals are improved if he is tolerating p.o. he can be discharged otherwise he may need to be admitted for intractable nausea and vomiting. At 3:13 PM he will be transition to Dr. Alfonso Thomas for further evaluation treatment and final disposition. <Ryley Thomas MD - Last Filed: 08/04/23 16:29> Vital Signs: 08/04/23 12:16 08/04/23 15:53 Temperature 97.8 F Temperature Source Oral Pulse Rate 105 H Pulse Rate [Apical] 132 H Respiratory Rate 20 Blood Pressure [Right Arm] 126/90 Blood Pressure Mean [Right Arm] 102 Blood Pressure Source [Right Arm] Automatic Cuff Blood Pressure Position [Right Arm] Sitting 02 Sat by Pulse Oximetry 98 Oxygen Delivery Method Room Air Lab Data Lab Results 08/04/23 12:21: WBC 25.6 H*, RBC 5.10, Hgb 15.5, Hct 43.5, MCV 85.2, MCH 30.3, MCHC 35.6 H, RDW 13.2, Plt Count 335, MPV 9.9, Neut % (Auto) 93.9 H, Lymph % (Auto) 3.6 L, [place] % (Auto) 2.2, Eos % (Auto) 0.1, Baso % (Auto) 0.1, Neut # (Auto) 24.0 H, Lymph # (Auto) 0.9, [place] # (Auto) 0.6, Eos # (Auto) 0.0, Baso # (Auto) 0.0, Total Counted 100, Neutrophils % (Manual) 86 H, Lymphocytes % (Manual) 12, Monocytes % (Manual) 2, Platelet Estimate Normal, RBC Morphology Normal, Sodium 141, Potassium 4.3, Chloride 103, Carbon Dioxide 20 L, Anion Gap 22.3 H, BUN 31 H, Creatinine 1.10, Estimated GFR 78, Est GFR ( Amer) 94, Glucose 357 H, Calcium 9.5, Phosphorus 3.3, Magnesium 1.8, Total Bilirubin 0.8, AST 49, ALT 51, Alkaline Phosphatase 125, Total Protein 8.2, Albumin 4.8, Globulin 3.4 H, Albumin/Globulin Ratio 1.4, Lipase 31 08/04/23 12:50: VBG pH 7.47 H, VBG pCO2 26.9 L, VBG pO2 158.9 H, VBG HCO3 19.2 L , VBG Total CO2 20.1 L, VBG O2 Saturation 99.3 H, VBG Base Excess -4.4 L Orders (Tests/Meds): ED MEDICATIONS Generic Name Dose Route Start Last Admin Trade Name Ayan PRN Reason Stop Dose Admin Gabapentin 600 mg 08/04/23 21:00 Gabapentin 600mg Tablet PO 09/03/23 20:59 HS LENA Gabapentin 300 mg 08/05/23 09:00 Gabapentin 300mg Capsule PO 09/04/23 08:59 0900,1500 LENA Lactated Ringer's 1,000 mls @ 150 mls/hr 08/04/23 16:30 Lactated Ringer's 1000 Ml Bag IV 08/04/23 23:09 .Q6H40M LENA Insulin Glargine 20 unit 08/04/23 21:00 Insulin Glargine 100 Units/Ml 10ml Vial SQ 09/03/23 20:59 BID LENA Insulin Human Lispro 0 unit 08/04/23 16:30 Humalog 100 Units/Ml 3ml Vial (Ssi) SQ 09/03/23 16:29 ACHS [facility] Protocol Ondansetron HCl 4 mg 08/04/23 16:21 Ondansetron 4mg/2ml Vial IV 09/03/23 16:20 Q6HP PRN Nausea Sodium Chloride 10 ml 08/04/23 13:53 Sodium Chloride 0.9% 10ml Vial IV 09/03/23 13:52 NEEDED PRN to Dilute Lorazepam inj Discontinued Medications Generic Name Dose Route Start Last Admin Trade Name Freq PRN Reason Stop Dose Admin Droperidol 2.5 mg 08/04/23 13:22 08/04/23 13:28 Droperidol 5mg/2ml Vial IV 08/04/23 13:23 2.5 mg ONCE ONE Administration Gabapentin 300 mg 08/04/23 21:00 Gabapentin 300mg Capsule PO 09/03/23 20:59 TID LENA Lactated Ringer's 1,000 mls @ 999 mls/hr 08/04/23 13:00 08/04/23 13:28 Lactated Ringer's 1000 Ml Bag IV 08/04/23 15:00 999 mls/hr .Q1H1M LENA Administration Lorazepam 1 mg 08/04/23 13:53 08/04/23 14:15 Lorazepam 2mg/Ml Vial IV 08/04/23 13:54 1 mg ONCE ONE Administration Ondansetron HCl 4 mg 08/04/23 12:50 08/04/23 13:10 Ondansetron 4mg/2ml Vial IV 08/04/23 12:51 4 mg ONCE ONE Administration ORDERS Category Date Time Status Basic Metabolic Panel Routine Lab 08/04/23 22:00 Ordered CBC w/Auto Diff [Complete Blood Count Auto Diff] Stat Lab 08/04/23 12:21 Completed CMP [Comprehensive Metabolic Panel] Stat Lab 08/04/23 12:21 Completed Complete Blood Count Auto Diff AMLAB Lab 08/05/23 06:00 Ordered Comprehensive Metabolic Panel AMLAB Lab 08/05/23 06:00 Ordered Lipase Stat Lab 08/04/23 12:21 Completed Magnesium AMLAB Lab 08/05/23 06:00 Ordered Magnesium Stat Lab 08/04/23 12:21 Completed Phosphorous Stat Lab 08/04/23 12:21 Completed Venous Blood Gas Stat RT 08/04/23 12:50 Completed ECG initial [place] Routine Y 08/04/23 12:20 Completed Medical Decision Narrative: 32-year-old male presents today with nausea vomiting diarrhea tachycardia he is clinically dehydrated abdominal exam is benign differential includes cannabinol hyperemesis, viral gastroenteritis, DKA etc. Will get labs give 2 L of IV fluids IV Zofran and reassess. EKG was performed which I personally interpreted shows a ventricular rate of 120 sinus tachycardia there is a short RI interval but no delta wave nonspecific ST disturbance but no definitive evidence of significant ST depression or elevation normal axis. Reassessment 154 no evidence of DKA. Patient continues to retch despite Zofran then droperidol now has been given IV Ativan. ED observation order placed at 154 pending reassessment after these medications. Reassessment 312 patient's nausea is mildly improved but he is persistently tachycardic he has refused another IV so far and his fluids are going very slowly however he needs to have another IV placed and we have had a discussion with him we will try to place a second IV to administer more fluids. He still needs likely at least 2 L of IV fluids he is in observation status at the moment in the emergency department. He has nonspecific leukocytosis again his abdominal exam is benign I suspect this is on the spectrum of cannabinol hyperemesis with his history. Once his vitals are improved if he is tolerating p.o. he can be discharged otherwise he may need to be admitted for intractable nausea and vomiting. At 3:13 PM he will be transition to Dr. Alfonso Thomas for further evaluation treatment and final disposition. Once overnight: Upon assumption of care patient is hemodynamically stable, has resolving tachycardia however underwent p.o. trial and was unsuccessful. Patient has persistent intractable vomiting in the setting of cannabinol use that is refractory to multiple medications. Given this the case discussed with hospital medicine patient will be admitted to their service for continued evaluation at this time. Critical Care <Mignon Dumas MD - Last Filed: 08/04/23 15:13> Critical Care Time Critical Care Time: No
[2023-08-04 12:57] LABS: Chloride 103 mmol/L (98-107); Potassium 4.3 mmoL/L (3.5-5.1); Sodium 141 mmol/L (136-145)
[2023-08-04 12:59] LABS: Blood Urea Nitrogen 31 mg/dl (9-20); Estimated Glomerular Filt Rate 78 ml/min (>60); GFR (African American) 94 ML/MIN (>60)
[2023-08-04 13:00] LABS: Alanine Aminotransferase 51 U/L (12-78); Albumin Level 4.8 g/dl (3.5-5.0); Albumin/Globulin Ratio 1.4 (1.1-1.8); Alkaline Phosphatase 125 U/L (38-126); Anion Gap 22.3 mEq/L (5-15); Aspartate Amino Transferase 49 U/L (17-59); Bilirubin,Total 0.8 mg/dl (0.2-1.3); Calcium 9.5 mg/dl (8.4-10.2); Carbon Dioxide 20 mmol/L (22.0-30.0); Globulin 3.4 g/dL (1.3-3.2); Glucose 357 mg/dl (74-100); Lipase 31 U/L (23-300); Magnesium 1.8 mg/dl (1.6-2.3); Phosphorous 3.3 mg/dl (2.5-4.5); Total Protein,Serum 8.2 g/dl (6.3-8.2)
[2023-08-04 13:03] LABS: Basophils % 0.1 % (0.1-2.0); Eosinophils % 0.1 % (0.1-12.0); Hematocrit 43.5 % (42.0-52.0); Hemoglobin 15.5 g/dL (14.1-18.0); Lymphocytes # 0.9 K/mm3 (0.7-4.5); Lymphocytes % 3.6 % (10-50); Mean Corpuscular HGB Conc 35.6 g/dL (31.8-35.4); Mean Corpuscular Hemoglobin 30.3 pg (27.0-31.2); Mean Corpuscular Volume 85.2 fl (80-94); Mean Platelet Volume 9.9 fl (7.4-10.4); Monocytes # 0.6 K/mm3 (0.1-1.0); Monocytes % 2.2 % (1.7-9.3); Neutrophils % 93.9 % (37.0-80.0); Platelet Count 335 K/mm3 (142-424); Red Cell Distribution Width 13.2 % (11.5-17.5); White Blood Count 25.6 K/mm3 (4.8-10.8)
--- NOTE | 2023-08-04 13:07 | PC.NURSE ---
Notified RT of VBG order
[2023-08-04] MEDS: LACTATED RINGERS 1000ML 1,000 ML 999 ML IV ×2 (13:10→13:28)
[2023-08-04] MEDS: ONDANSETRON 4MG/2ML VIAL 4 MG IV ×3 (13:10→22:55)
[2023-08-04 13:14] LABS: MANUAL DIFFERENTIAL MANUAL DIFFERENTIAL (MANUAL DIFF)
[2023-08-04 13:14] LABS: VBG Base Excess -4.4 mmol/L (-2.4-2.3); VBG HCO3 19.2 mmol/L (23-30); VBG Oxygen Saturation 99.3 % (50-70); VBG PCO2 26.9 mmol/L (35-51); VBG PH 7.47 mmol/L (7.31-7.41); VBG PO2 158.9 mmol/L (28-40); VBG Total CO2 20.1 mmol/L (23-27)
[2023-08-04] MEDS: droPERidol 5MG/2ML VIAL 2.5 MG IV (13:28)
[2023-08-04 13:52] LABS: Lymphocytes % 12 % (10-50); Monocytes % 2 % (2-9); Neutrophils % 86 % (42-76); Platelet Estimate Normal; RBC Morphology Normal; Total Cells Counted 100
[2023-08-04] MEDS: LORazepam 2MG/ML VIAL 1 MG IV (14:15)
--- NOTE | 2023-08-04 15:05 | PC.NURSE ---
PT PROVIDED DIET SODA AND WARM BLANKET. S.O AT BEDSIDE
--- NOTE | 2023-08-04 15:09 | PC.NURSE ---
DR MADRIGAL AT BEDSIDE TO REEVALUATE PT
--- NOTE | 2023-08-04 16:17 | PC.NURSE ---
DR DINH SPEAKING WITH DR MYLES FOR ADMISSION
--- NOTE | 2023-08-04 16:19 | PC.NURSE ---
TELEPHONE INSTALLER NOTIFIED OF ADMISSION
--- NOTE | 2023-08-04 16:25 | P.HP_ITS ---
History of Present Illness *Admission Date: 08/04/23 *Reason for visit:: Intractable nausea and vomiting *History of present illness: Mr. Schwab is 32-year-old male who presented with nausea vomiting and diarrhea. Also found to be tachycardic and dehydrated. History of cannabis hyperemesis, is also a type I diabetic. Initial workup in the ER shows tach Ck cysts. Had low concern for sepsis given to clear explanations, afebrile, and vomiting for 2 to 3 days. Received IV fluids. Workup showed mixed acid-base disorder with normal pH and dehydration. Trial droperidol with no benefit. Medicine was consulted for admission and further management. After arriving to the floor patient states that symptoms been going on for 2 to 3 days. He continues to have retching despite droperidol and Zofran. Exam fairly benign with no significant pain in his abdomen. Denies any blood in his stool but has had scant blood in his vomit. Stable on room air. No confusion, chest pain. [facility] Disclaimer: The information contained in this section may have been updated after the patient was seen, as this information can be updated by other users. 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 Pneumonia Pneumonia with cavity of lung Vomiting alone Surgical History History of appendectomy Family History Family history non-contributory Social History Smoking Status: Current every day smoker alcohol intake: never substance use type: marijuana current occupational status: other Travel in the last 8 weeks: None household members: friend(s) housing: house current occupational exposures/hazards: No caffeine: No Review of Systems Review of Systems Review of systems (narrative): 14 point review of systems performed, pertinent positives and negatives as per HPI Meds Home Medications and Allergies Home Medications Medication Instructions Recorded Confirmed Type ibuprofen 600 mg tablet 600 mg PO Q6HP PRN Moderate Pain 10/25/22 08/04/23 Rx #20 tabs cholecalciferol (vitamin D3) 1,250 1,250 mcg PO WEEKLY Supplement 12/06/22 08/04/23 History mcg (50,000 unit) capsule gabapentin 600 mg tablet 600 mg PO HS NERVE PAIN 01/12/23 08/04/23 History gabapentin 300 mg capsule 300 mg PO TID neuropathic pain 04/24/23 08/04/23 Rx #120 caps insulin glargine 100 unit/mL 20 unit (0.2 mL) SQ BID Diabetes 04/24/23 08/04/23 Rx subcutaneous solution (Lantus 30 days #12 mL U-100 Insulin) insulin regular human 100 unit/mL 10 - 15 unit (0.1 - 0.15 mL) SQ 04/24/23 08/04/23 Rx injection solution QID Diabetes 30 days #10 mL New Prescriptions to Start Prescriptions: Allergies Allergy/AdvReac Type Severity Reaction Status Date / Time metoclopramide AdvReac Anxiety Verified 05/09/23 11:11 Exam Data for Last 24 hours Vital signs and Labs for Last 24 Hours: Temp Pulse Resp BP Pulse Ox O2 Del Method 97.8 F 105 H 20 126/90 98 Room Air 08/04/23 12:16 08/04/23 15:53 08/04/23 12:16 08/04/23 12:16 08/04/23 12:16 08/04/23 12:16 Laboratory Results - last 24 hr 08/04/23 12:21: WBC 25.6 H*, RBC 5.10, Hgb 15.5, Hct 43.5, MCV 85.2, MCH 30.3, MCHC 35.6 H, RDW 13.2, Plt Count 335, MPV 9.9, Neut % (Auto) 93.9 H, Lymph % (Auto) 3.6 L, [place] % (Auto) 2.2, Eos % (Auto) 0.1, Baso % (Auto) 0.1, Neut # (Auto) 24.0 H, Lymph # (Auto) 0.9, [place] # (Auto) 0.6, Eos # (Auto) 0.0, Baso # (Auto) 0.0, Total Counted 100, Neutrophils % (Manual) 86 H, Lymphocytes % (Manual) 12, Monocytes % (Manual) 2, Platelet Estimate Normal, RBC Morphology N ormal, Sodium 141, Potassium 4.3, Chloride 103, Carbon Dioxide 20 L, Anion Gap 22.3 H, BUN 31 H, Creatinine 1.10, Estimated GFR 78, Est GFR ( Amer) 94, Glucose 357 H, Calcium 9.5, Phosphorus 3.3, Magnesium 1.8, Total Bilirubin 0.8, AST 49, ALT 51, Alkaline Phosphatase 125, Total Protein 8.2, Albumin 4.8, Globulin 3.4 H, Albumin/Globulin Ratio 1.4, Lipase 31 08/04/23 12:50: VBG pH 7.47 H, VBG pCO2 26.9 L, VBG pO2 158.9 H, VBG HCO3 19.2 L , VBG Total CO2 20.1 L, VBG O2 Saturation 99.3 H, VBG Base Excess -4.4 L I & O for Last 24 hours: Intake & Output 08/01/23 08/02/23 08/03/23 08/04/23 23:59 23:59 23:59 23:59 Weight 54.431 kg Constitutional Constitutional: mild distress, thin, chronically ill appearing and cooperative *Routine HEENT Exam Head: Present normocephalic Eye: Present EOMI ENT: Present mucous membranes moist *Routine Neck Exam Neck: Present full ROM *Routine Respiratory Exam Respiratory: Present CTA bilaterally and symmetric chest movement; Absent rhonchi, wheezes or crackles *Routine Cardiovascular Exam Cardiovascular: Present Normal S1, Normal S2 and tachycardia *Routine Abdominal Exam Abdominal: Present soft, normoactive bowel sounds and tenderness (non focal); Absent distended *Routine Rectal Exam Rectal:: deferred *Routine Genitalia Exam Genitalia:: deferred *Routine Extremities Exam Extremities: Present full ROM *Routine Skin Exam Skin: Present intact and warm Comments: Numerous tattoos *Routine Neurological Exam Neurological: Present alert and oriented X3 Assessment and Plan *Assessment and plan (1) Nausea and vomiting: Status: Acute Category: Medical Code(s): R11.2 - Nausea with vomiting, unspecified (2) Gastritis: Status: Acute Qualifiers: Chronicity: acute Gastritis type: unspecified gastritis Category: Medical Code(s): K29.70 - Gastritis, unspecified, without bleeding (3) Mixed acid base balance disorder: Status: Acute Category: Medical Code(s): E87.4 - Mixed disorder of acid-base balance (4) Cannabis hyperemesis syndrome concurrent with and due to cannabis dependence: Status: Acute Category: Medical Code(s): F12.288 - Cannabis dependence with other cannabis-induced disorder (5) Leukocytosis: Status: Acute Category: Medical Code(s): D72.829 - Elevated white blood cell count, unspecified (6) Diabetes mellitus: Status: Acute Qualifiers: Diabetes mellitus complication detail: with unspecified neuropathy Diabetes mellitus complication status: with neurologic complications Diabetes mellitus type: type 1 Qualified Code(s): E10.40 - Type 1 diabetes mellitus with diabetic neuropathy, unspecified Category: Medical Code(s): E11.9 - Type 2 diabetes mellitus without complications (7) Tobacco use: Status: Acute Category: Social Hx Code(s): Z72.0 - Tobacco use Plan 32 year old male who presented to ED for c/o nausea and vomiting that started 2 to 3 days ago. Presented to the ER because of inability to keep food down and intractable nausea and vomiting. Workup in the ER concerning for mixed acid- base disorder, intractable nausea and vomiting, dehydration. Medicine consulted for admission. Medicine agreed to admit for further management. Having limited response to Zofran and droperidol. Will add Compazine. Continues to require inpatient management. Problems addressed as follows: Intractable nausea and vomiting GASTRITIS -c/o nausea and vomiting since Saturday A.M -Reports uncontrolled vomiting. Unable to discharge from ED. -No fever, WBC of 26 -Continue Zofran and Compazine as needed every 6 hours for nausea and vomiting. Recommended patient trial a warm shower when his nausea returns. -Initiate pantoprazole 40 mg twice daily IV and sucralfate ACHS -Holding on antibiotics in the setting of other explanations and similar admissions in the past for noninfectious etiologies. -Continue maintenance IV fluids at 150 cc an hour CANNABIS ABUSE -Last use was Saturday A.M when vomiting occurred -Admits to using daily -Can not exclude cause in nausea and vomiting (Cannabinoid hypermesis syndrome) DIABETES - a1c pending - SS insulin low dose ordered. FSGS ACHS - repeat BMP at 2200 - resume long acting insulin to help with gap closure, glargine 20 units BID TOBACCO ABUSE -nicotine patch PRN FULL CODE NPO DVT: scd
--- NOTE | 2023-08-04 17:02 | PC.NURSE ---
REPORT CALLED TO DENICE CAVANAUGH
[2023-08-04] MEDS: LACTATED RINGERS 1000ML 1,000 ML 150 ML IV (17:29)
[2023-08-04] MEDS: humaLOG 100 UNITS/ML 3ML VIAL (SSI) SQ ×2 (17:29→20:52)
[2023-08-04] MEDS: PROCHLORPERAZINE 10MG/2ML VIAL 10 MG IV (18:08)
[2023-08-04] MEDS: PANTOPRAZOLE 40MG VIAL 40 MG IV (20:48)
[2023-08-04] MEDS: SODIUM CHLORIDE 0.9% 10ML VIAL 10 ML IV (20:48)
[2023-08-04] MEDS: GABAPENTIN 600MG TABLET 600 MG PO (20:49)
[2023-08-04] MEDS: SUCRALFATE 1GM/10ML SUSP UDC 1 GM PO (20:51)
[2023-08-04] MEDS: INSULIN GLARGINE 100 UNITS/ML 3ML FLEXPEN 20 UNIT SQ (20:51)
[2023-08-04 22:46] LABS: Chloride 103 mmol/L (98-107); Sodium 144 mmol/L (136-145)
[2023-08-04 22:49] LABS: Blood Urea Nitrogen 39 mg/dl (9-20); Carbon Dioxide 29 mmol/L (22.0-30.0); Creatinine Clearance Estimated 57 mL/min (50-200); Estimated Glomerular Filt Rate 50 ml/min (>60); GFR (African American) 61 ML/MIN (>60)
[2023-08-04 22:50] LABS: Calcium 10.6 mg/dl (8.4-10.2); Glucose 221 mg/dl (74-100)
[2023-08-05] MEDS: PROCHLORPERAZINE 10MG/2ML VIAL 10 MG IV ×3 (01:33→15:29)
[2023-08-05 04:00] VITALS: BP 127/74; PULSE 108; RESP 20; TEMP 37.1; O2SAT 97; BMI 18.3
[2023-08-05] MEDS: ONDANSETRON 4MG/2ML VIAL 4 MG IV ×2 (04:33→11:12)
[2023-08-05] MEDS: SUCRALFATE 1GM/10ML SUSP UDC 1 GM PO ×3 (05:53→20:09)
[2023-08-05] MEDS: humaLOG 100 UNITS/ML 3ML VIAL (SSI) SQ ×3 (05:56→21:15)
--- NOTE | 2023-08-05 06:25 | PC.NURSE ---
pt has slept on and off throughout the night and had 3-4 episodes of vomiting. pt is not actually vomiting much emesis, just retching. Zofran and Compazine seem to help; after given, pt is able to sleep a few hours with no symptoms. pt attempted to take a drink a couple times and as soon as he does, he starts retching. HR is still slightly elevated but otherwise vital signs stable. Pt urinated once in urinal with encouragement and voided 475 mL.
[2023-08-05 07:33] LABS: Alanine Aminotransferase 27 U/L (12-78); Albumin Level 4.3 g/dl (3.5-5.0); Albumin/Globulin Ratio 1.3 (1.1-1.8); Alkaline Phosphatase 85 U/L (38-126); Anion Gap 12.8 mEq/L (5-15); Aspartate Amino Transferase 26 U/L (17-59); Bilirubin,Total 0.6 mg/dl (0.2-1.3); Blood Urea Nitrogen 43 mg/dl (9-20); Calcium 8.8 mg/dl (8.4-10.2); Carbon Dioxide 31 mmol/L (22.0-30.0); Chloride 104 mmol/L (98-107); Creatinine Clearance Estimated 61 mL/min (50-200); Estimated Glomerular Filt Rate 54 ml/min (>60); GFR (African American) 66 ML/MIN (>60); Globulin 3.2 g/dL (1.3-3.2); Glucose 221 mg/dl (74-100); Potassium 3.8 mmoL/L (3.5-5.1); Sodium 144 mmol/L (136-145); Total Protein,Serum 7.5 g/dl (6.3-8.2)
[2023-08-05 07:36] LABS: Basophils % 0.2 % (0.1-2.0); Hematocrit 42.2 % (42.0-52.0); Hemoglobin 14.7 g/dL (14.1-18.0); Lymphocytes # 1.4 K/mm3 (0.7-4.5); Lymphocytes % 8.1 % (10-50); Mean Corpuscular HGB Conc 34.9 g/dL (31.8-35.4); Mean Corpuscular Hemoglobin 30.6 pg (27.0-31.2); Mean Corpuscular Volume 87.7 fl (80-94); Mean Platelet Volume 8.6 fl (7.4-10.4); Monocytes # 0.7 K/mm3 (0.1-1.0); Monocytes % 3.9 % (1.7-9.3); Neutrophils # 15.4 K/mm3 (1.8-7.8); Neutrophils % 87.8 % (37.0-80.0); Platelet Count 285 K/mm3 (142-424); Red Blood Count 4.81 M/mm3 (4.60-6.20); Red Cell Distribution Width 13.3 % (11.5-17.5); White Blood Count 17.5 K/mm3 (4.8-10.8)
[2023-08-05 07:43] LABS: MANUAL DIFFERENTIAL MANUAL DIFFERENTIAL (MANUAL DIFF)
[2023-08-05 07:53] VITALS: BP 158/89; PULSE 135; RESP 16; TEMP 36.9; O2SAT 96
[2023-08-05 08:00] VITALS: PULSE 135
[2023-08-05] MEDS: INSULIN GLARGINE 100 UNITS/ML 3ML FLEXPEN 20 UNIT SQ ×2 (09:11→21:16)
[2023-08-05] MEDS: PANTOPRAZOLE 40MG VIAL 40 MG IV ×2 (09:11→20:09)
[2023-08-05] MEDS: SODIUM CHLORIDE 0.9% 10ML VIAL 10 ML IV (09:11)
[2023-08-05] MEDS: LACTATED RINGERS 1000ML 1,000 ML 500 ML IV (09:14)
[2023-08-05 09:34] LABS: Lymphocytes % 7 % (10-50); Monocytes % 2 % (2-9); Neutrophils % 89 % (42-76); Total Cells Counted 100
[2023-08-05 09:36] LABS: Platelet Estimate Normal; RBC Morphology Normal
--- NOTE | 2023-08-05 10:03 | P.CONPHA_ITS ---
Pharmacy Intervention Comments: Home med list verified with external pharmacy list and with [facility] pharmacy via phone.
[2023-08-05 11:48] LABS: POC Glucose,Bedside 198 (70-110)
[2023-08-05 15:43] VITALS: BP 127/70; PULSE 98; RESP 18; TEMP 36.9; O2SAT 95
--- NOTE | 2023-08-05 19:50 | P.PN_ITS ---
Subjective *Date: 08/05/23 *Time: 19:50 Interval history: Continues to be nauseous this morning, not throwing up as much but still having dry heaves. Afebrile. Blood pressure stable. Heart rate improving but cardiac. Notes are short of breath. Has not tried a hot shower yet. Tolerati ng small amounts of p.o. fluids. Medical Exam Vital signs and Labs for Last 24 Hours: Vital Signs Temp Pulse Resp BP Pulse Ox O2 Del Method 08/05/23 18:21 Room Air 08/05/23 17:00 Room Air 08/05/23 15:00 Room Air 08/05/23 15:43 98.4 F 98 H 18 127/70 95 Room Air 08/05/23 13:00 Room Air 08/05/23 11:00 Room Air 08/05/23 09:00 Room Air 08/05/23 08:00 135 H Room Air 08/05/23 07:53 98.4 F 135 H 16 158/89 H 96 Room Air 08/05/23 06:39 Room Air 08/05/23 04:00 98.7 F 108 H 20 127/74 97 Room Air 08/05/23 04:43 Room Air 08/05/23 03:00 Room Air 08/05/23 01:00 Room Air 08/04/23 23:00 Room Air 08/04/23 21:00 Room Air 08/04/23 20:00 Room Air 08/04/23 20:00 98.8 F 106 H 20 132/75 97 Room Air Intake and Output 08/05/23 08/05/23 08/05/23 07:59 15:59 23:59 Intake Total 470 / 470 Output Total 575 / 575 Balance -105 / -105 Intake: Intake, Oral Amount 470 / 470 Output: Output, Urine Amount 475 / 475 Output, Emesis Amount 100 / 100 Other: Weight 61.433 kg Patient Weight 08/05/23 23:59 Weight 61.433 kg Laboratory Results - last 24 hr 08/04/23 22:25: Sodium 144, Potassium 4.0, Chloride 103, Carbon Dioxide 29, Anion Gap 16.0 H, BUN 39 H D, Creatinine 1.60 H D, Estimated Creat Clear 57, Estimated GFR 50 L, Est GFR ( Amer) 61 D, Glucose 221 H D, Calcium 10.6 H 08/05/23 06:45: WBC 17.5 H D, RBC 4.81, Hgb 14.7, Hct 42.2, MCV 87.7, MCH 30.6, MCHC 34.9, RDW 13.3, Plt Count 285, MPV 8.6, Neut % (Auto) 87.8 H, Lymph % (Auto) 8.1 L, [place] % (Auto) 3.9, Eos % (Auto) 0.0 L, Baso % (Auto) 0.2, Neut # (Auto) 15.4 H, Lymph # (Auto) 1.4, [place] # (Auto) 0.7, Eos # (Auto) 0.0, Baso # (Auto) 0.0, Total Counted 100, Neutrophils % (Manual) 89 H, Band Neutrophils % 2.0, Lymphocytes % (Manual) 7 L, Monocytes % (Manual) 2, Platelet Estimate Normal, RBC Morphology Normal, Sodium 144, Potassium 3.8, Chloride 104, Carbon Dioxide 31 H, Anion Gap 12.8, BUN 43 H, Creatinine 1.50 H, Estimated Creat Clear 61, Estimated GFR 54 L, Est GFR ( Amer) 66, Glucose 221 H, Calcium 8.8, Magnesium 2.0 D, Total Bilirubin 0.6, AST 26 D, ALT 27 D, Alkaline Phosphatase 85, Total Protein 7.5, Albumin 4.3 D, Globulin 3.2, Albumin/Globulin Ratio 1.3 08/05/23 11:15: POC Glucose 198 H I & O for Labs for Last 24 Hours: Intake & Output 08/02/23 08/03/23 08/04/23 08/05/23 23:59 23:59 23:59 23:59 Intake Total 0 / 0 470 / 470 Output Total 575 / 575 Balance 0 / -100 -105 / -105 Weight 61.037 kg 61.433 kg Constitutional: Present no acute distress, thin and chronically ill appearing Head: Present atraumatic and normocephalic ENT: Present normal exam Respiratory: Present normal respiratory effort; Absent rhonchi, wheezes or crack les Cardiac: Present Regular Rhythm and Tachycardia GI: Present soft and normal bowel sounds; Absent distention or tenderness Extremities: Present normal inspection and full ROM Skin: Present intact; Absent erythema Neuro: Present Grossly Intact, alert, awake, oriented x 3 and moves all extremities Assessment and Plan *Assessment and plan (1) Nausea and vomiting: Status: Acute Category: Medical Code(s): R11.2 - Nausea with vomiting, unspecified (2) Gastritis: Status: Acute Qualifiers: Chronicity: acute Gastritis type: unspecified gastritis Category: Medical Code(s): K29.70 - Gastritis, unspecified, without bleeding (3) Mixed acid base balance disorder: Status: Acute Category: Medical Code(s): E87.4 - Mixed disorder of acid-base balance (4) Cannabis hyperemesis syndrome concurrent with and due to cannabis dependence: Status: Acute Category: Medical Code(s): F12.288 - Cannabis dependence with other cannabis-induced disorder (5) Leukocytosis: Status: Acute Category: Medical Code(s): D72.829 - Elevated white blood cell count, unspecified (6) Diabetes mellitus: Status: Acute Qualifiers: Diabetes mellitus complication detail: with unspecified neuropathy Diabetes mellitus complication status: with neurologic complications Diabetes mellitus type: type 1 Qualified Code(s): E10.40 - Type 1 diabetes mellitus with diabetic neuropathy, unspecified Category: Medical Code(s): E11.9 - Type 2 diabetes mellitus without complications (7) Tobacco use: Status: Acute Category: Social Hx Code(s): Z72.0 - Tobacco use Plan 32 year old male who presented to ED for c/o nausea and vomiting that started 2 to 3 days ago. Presented to the ER because of inability to keep food down and intractable nausea and vomiting. Workup in the ER concerning for mixed acid- base disorder, intractable nausea and vomiting, dehydration. Medicine consulted for admission. Medicine agreed to admit for further management. Having limited response to Zofran and droperidol. Will add Compazine. Still having difficulty with p.o. intake. Persistent vomiting. Seeing improvement in labs. Continues to require inpatient management. Problems addressed as follows: Intractable nausea and vomiting GASTRITIS ASA -c/o nausea and vomiting since David A.M -White cell count improved to 17.8. -Continue Zofran and Compazine as needed every 6 hours for nausea and vomiting. Recommended patient trial a warm shower when his nausea returns. -continue pantoprazole 40 mg twice daily IV and sucralfate ACHS -Holding on antibiotics in the setting of other explanations and similar admissions in the past for noninfectious etiologies. -Continue maintenance IV fluids at 150 cc an hour -Repeat CBC, CMP, magnesium ordered for the morning. -Creatinine 1.5 this morning, improved from 1.6 yesterday. BUN elevated at 43. Concern for ASA. CANNABIS ABUSE -Last use was Saturday A.M when vomiting occurred -Admits to using daily -Can not exclude cause in nausea and vomiting (Cannabinoid hypermesis syndrome) -Encouraged to take warm showers DIABETES - a1c pending - SS insulin low dose ordered. FSGS ACHS - repeat BMP at 2200 - resume long acting insulin to help with gap closure, glargine 20 units BID TOBACCO ABUSE -nicotine patch PRN FULL CODE NPO DVT: scd
[2023-08-05 20:00] VITALS: BP 162/85; PULSE 112; RESP 18; TEMP 36.9; O2SAT 96
[2023-08-05] MEDS: BELLADONNA ALKALOIDS 60 ML ML PO (20:04)
[2023-08-05] MEDS: GABAPENTIN 600MG TABLET 600 MG PO (20:06)
[2023-08-05 21:28] LABS: POC Glucose,Bedside 155 (70-110)
[2023-08-05 21:28] LABS: POC Glucose,Bedside 128 (70-110)
[2023-08-05] MEDS: ALUMINUM/MAGNESIUM/SIMETHICONE 30ML UDC 30 ML PO (21:48)
[2023-08-06] MEDS: MORPHINE 4MG/ML SYRINGE 4 MG IV (00:59)
[2023-08-06] MEDS: ONDANSETRON 4MG/2ML VIAL 4 MG IV ×4 (01:00→23:15)
[2023-08-06] MEDS: FAMOTIDINE 20MG/2ML VIAL 20 MG IV (01:00)
[2023-08-06] MEDS: ALUMINUM/MAGNESIUM/SIMETHICONE 30ML UDC 30 ML PO ×2 (03:10→22:37)
[2023-08-06 04:00] VITALS: BP 135/81; PULSE 106; RESP 20; TEMP 37.2; O2SAT 96; BMI 18.3
[2023-08-06] MEDS: SUCRALFATE 1GM/10ML SUSP UDC 1 GM PO ×4 (06:16→22:26)
[2023-08-06] MEDS: PROCHLORPERAZINE 10MG/2ML VIAL 10 MG IV ×3 (06:16→20:45)
[2023-08-06 06:30] LABS: POC Glucose,Bedside 121 (70-110)
[2023-08-06 06:57] LABS: Basophils % 0.1 % (0.1-2.0); Hematocrit 43.1 % (42.0-52.0); Hemoglobin 14.7 g/dL (14.1-18.0); Lymphocytes # 1.2 K/mm3 (0.7-4.5); Lymphocytes % 7.6 % (10-50); Mean Corpuscular Hemoglobin 29.8 pg (27.0-31.2); Mean Corpuscular Volume 87.7 fl (80-94); Mean Platelet Volume 8.5 fl (7.4-10.4); Monocytes # 0.7 K/mm3 (0.1-1.0); Monocytes % 4.2 % (1.7-9.3); Neutrophils # 14.2 K/mm3 (1.8-7.8); Platelet Count 277 K/mm3 (142-424); Red Blood Count 4.92 M/mm3 (4.60-6.20); Red Cell Distribution Width 13.4 % (11.5-17.5); White Blood Count 16.2 K/mm3 (4.8-10.8)
[2023-08-06 07:02] LABS: MANUAL DIFFERENTIAL MANUAL DIFFERENTIAL (MANUAL DIFF)
[2023-08-06 07:05] LABS: Alanine Aminotransferase 31 U/L (12-78); Albumin Level 4.4 g/dl (3.5-5.0); Albumin/Globulin Ratio 1.4 (1.1-1.8); Alkaline Phosphatase 93 U/L (38-126); Anion Gap 15.4 mEq/L (5-15); Aspartate Amino Transferase 36 U/L (17-59); Bilirubin,Total 0.6 mg/dl (0.2-1.3); Blood Urea Nitrogen 34 mg/dl (9-20); Calcium 8.9 mg/dl (8.4-10.2); Carbon Dioxide 35 mmol/L (22.0-30.0); Chloride 101 mmol/L (98-107); Creatinine Clearance Estimated 77 mL/min (50-200); Estimated Glomerular Filt Rate 70 ml/min (>60); GFR (African American) 85 ML/MIN (>60); Globulin 3.2 g/dL (1.3-3.2); Glucose 149 mg/dl (74-100); Magnesium 2.2 mg/dl (1.6-2.3); Potassium 4.4 mmoL/L (3.5-5.1); Sodium 147 mmol/L (136-145); Total Protein,Serum 7.6 g/dl (6.3-8.2)
[2023-08-06 08:00] VITALS: O2SAT 98
[2023-08-06 08:14] VITALS: BP 117/71; PULSE 98; RESP 18; TEMP 37.1
[2023-08-06 08:44] LABS: Lymphocytes % 7 % (10-50); Monocytes % 8 % (2-9); Neutrophils % 85 % (42-76); Platelet Estimate Normal; RBC Morphology Normal; Total Cells Counted 100
[2023-08-06] MEDS: PANTOPRAZOLE 40MG VIAL 40 MG IV ×2 (09:25→22:26)
[2023-08-06 10:45] LABS: POC Glucose,Bedside 122 (70-110)
[2023-08-06 10:47] VITALS: BMI 18.3
[2023-08-06] MEDS: MORPHINE 2MG/ML SYRINGE 1 MG IV ×3 (12:45→23:21)
--- NOTE | 2023-08-06 13:30 | EXP.PN ---
Subjective *Date: 08/06/23 *Time: 13:30 Interval history: seen ay bedside, complains of Nausea, vomiting, not able to tolerate diet Exam Data for Last 24 hours Vital signs and Labs for Last 24 Hours: Temp Pulse Resp BP Pulse Ox O2 Del Method 98.7 F 98 H 18 117/71 98 Room Air 08/06/23 08:14 08/06/23 08:14 08/06/23 08:14 08/06/23 08:14 08/06/23 08:00 08/06/23 12:40 Laboratory Results - last 24 hr 08/05/23 16:45: POC Glucose 128 H 08/05/23 20:07: POC Glucose 155 H 08/06/23 06:11: POC Glucose 121 H 08/06/23 06:19: WBC 16.2 H, RBC 4.92, Hgb 14.7, Hct 43.1, MCV 87.7, MCH 29.8, MCHC 34.0, RDW 13.4, Plt Count 277, MPV 8.5, Neut % (Auto) 88.0 H, Lymph % (Auto) 7.6 L, [place] % (Auto) 4.2, Eos % (Auto) 0.0 L, Baso % (Auto) 0.1, Neut # (Auto) 14.2 H, Lymph # (Auto) 1.2, [place] # (Auto) 0.7, Eos # (Auto) 0.0, Baso # (Auto) 0.0, Total Counted 100, Neutrophils % (Manual) 85 H, Lymphocytes % (Manual) 7 L, Monocytes % (Manual) 8, Platelet Estimate Normal, RBC Morphology Normal, Sodium 147 H, Potassium 4.4, Chloride 101, Carbon Dioxide 35 H, Anion Gap 15.4 H, BUN 34 H, Creatinine 1.20, Estimated Creat Clear 77, Estimated GFR 70, Est GFR ( Amer) 85 D, Glucose 149 H D, Calcium 8.9, Magnesium 2.2, Total Bilirubin 0.6, AST 36 D, ALT 31, Alkaline Phosphatase 93, Total Protein 7.6, Albumin 4.4, Globulin 3.2, Albumin/Globulin Ratio 1.4 08/06/23 10:36: POC Glucose 122 H I & O for Last 24 hours: Intake & Output 08/03/23 08/04/23 08/05/2324 23:59 23:59 23:59 23:59 Intake Total 0 / 0 470 / 720 840 / 840 Output Total 575 / 575 950 / 950 Balance 0 / -100 -105 / 145 -110 / -110 Weight 61.037 kg 61.433 kg 61.55 kg Constitutional Constitutional: no acute distress *Routine HEENT Exam Head: Present normocephalic Eye: Present EOMI and PERRL ENT: Present mucous membranes moist *Routine Neck Exam Neck: Present supple; Absent lymphadenopathy *Routine Respiratory Exam Respiratory: Present CTA bilaterally *Routine Cardiovascular Exam Cardiovascular: Present RRR *Routine Abdominal Exam Abdominal: Present soft and normoactive bowel sounds; Absent tenderness *Routine Extremities Exam Extremities: Absent cyanosis, clubbing or edema *Routine Skin Exam Skin: Present warm; Absent rash *Routine Neurological Exam Neurological: Present alert and oriented X3 Assessment and Plan *Assessment and plan (1) Nausea and vomiting: Status: Acute Category: Medical Code(s): R11.2 - Nausea with vomiting, unspecified (2) Gastritis: Status: Acute Qualifiers: Chronicity: acute Gastritis type: unspecified gastritis Category: Medical Code(s): K29.70 - Gastritis, unspecified, without bleeding (3) Mixed acid base balance disorder: Status: Acute Category: Medical Code(s): E87.4 - Mixed disorder of acid-base balance (4) Cannabis hyperemesis syndrome concurrent with and due to cannabis dependence: Status: Acute Category: Medical Code(s): F12.288 - Cannabis dependence with other cannabis-induced disorder (5) Leukocytosis: Status: Acute Category: Medical Code(s): D72.829 - Elevated white blood cell count, unspecified (6) Diabetes mellitus: Status: Acute Qualifiers: Diabetes mellitus complication detail: with unspecified neuropathy Diabetes mellitus complication status: with neurologic complications Diabetes mellitus type: type 1 Qualified Code(s): E10.40 - Type 1 diabetes mellitus with diabetic neuropathy, unspecified Category: Medical Code(s): E11.9 - Type 2 diabetes mellitus without complications (7) Tobacco use: Status: Acute Category: Social Hx Code(s): Z72.0 - Tobacco use Plan 32 year old male who presented to ED for c/o nausea and vomiting that started 2 to 3 days ago. Presented to the ER because of inability to keep food down and intractable nausea and vomiting. Workup in the ER concerning for mixed acid-base disorder, intractable nausea and vomiting, dehydration. Medicine consulted for admission. Medicine agreed to admit for further management. Having limited response to Zofran and droperidol. Will add Compazine. Still having difficulty with p.o. intake. Persistent vomiting. Seeing improvement in labs. Continues to require inpatient management. Problems addressed as follows: Intractable nausea and vomiting GASTRITIS, Can not rule out Gastroparesis? ASA - started on Zofran, compazine, pain control - Recommended patient trial a warm shower when his nausea returns. -continue pantoprazole 40 mg twice daily IV and sucralfate ACHS -Continue maintenance IV fluids at 150 cc an hour -Repeat CBC, CMP, magnesium ordered for the morning. - continue to monitor BMP CANNABIS ABUSE -Last use was Saturday A.M -Admits to using daily -Can not exclude cause in nausea and vomiting (Cannabinoid hypermesis syndrome) -Encouraged to take warm showers DIABETES - SS insulin low dose ordered - resume long acting insulin glargine 20 units BID TOBACCO ABUSE -nicotine patch PRN FULL CODE started on Diabetic diet DVT: scd
--- NOTE | 2023-08-06 14:46 | PC.NURSE ---
Aox 4, up ad michelle, using a urinal, nausea today and no vomiting reported, nausea and pain meds given today.
[2023-08-06 15:36] VITALS: BP 134/87; PULSE 101; RESP 16; TEMP 36.7; O2SAT 94
[2023-08-06 20:00] VITALS: BP 150/82; PULSE 105; RESP 16; TEMP 37.4; O2SAT 96
[2023-08-06] MEDS: GABAPENTIN 600MG TABLET 600 MG PO (22:26)
[2023-08-06] MEDS: humaLOG 100 UNITS/ML 3ML VIAL (SSI) SQ (22:38)
[2023-08-06] MEDS: INSULIN GLARGINE 100 UNITS/ML 3ML FLEXPEN 20 UNIT SQ (22:39)
[2023-08-06 22:42] LABS: POC Glucose,Bedside 185 (70-110)
[2023-08-07 04:00] VITALS: BP 146/74; PULSE 93; RESP 18; TEMP 36.6; O2SAT 97; BMI 18.4
[2023-08-07] MEDS: MORPHINE 2MG/ML SYRINGE 1 MG IV ×3 (06:02→18:51)
[2023-08-07] MEDS: ONDANSETRON 4MG/2ML VIAL 4 MG IV ×3 (06:02→18:51)
[2023-08-07 06:29] LABS: POC Glucose,Bedside 91 (70-110)
[2023-08-07 06:29] LABS: Alanine Aminotransferase 30 U/L (12-78); Albumin Level 4.4 g/dl (3.5-5.0); Albumin/Globulin Ratio 1.3 (1.1-1.8); Alkaline Phosphatase 90 U/L (38-126); Anion Gap 12.8 mEq/L (5-15); Aspartate Amino Transferase 39 U/L (17-59); Bilirubin,Total 0.7 mg/dl (0.2-1.3); Blood Urea Nitrogen 31 mg/dl (9-20); Calcium 8.9 mg/dl (8.4-10.2); Carbon Dioxide 39 mmol/L (22.0-30.0); Chloride 96 mmol/L (98-107); Creatinine Clearance Estimated 84 mL/min (50-200); Estimated Glomerular Filt Rate 78 ml/min (>60); GFR (African American) 94 ML/MIN (>60); Globulin 3.3 g/dL (1.3-3.2); Glucose 103 mg/dl (74-100); Potassium 3.8 mmoL/L (3.5-5.1); Sodium 144 mmol/L (136-145); Total Protein,Serum 7.7 g/dl (6.3-8.2)
[2023-08-07] MEDS: SUCRALFATE 1GM/10ML SUSP UDC 1 GM PO ×2 (07:01→20:47)
[2023-08-07 08:00] VITALS: BP 148/93; PULSE 96; RESP 18; TEMP 36.6; O2SAT 95
[2023-08-07] MEDS: PANTOPRAZOLE 40MG VIAL 40 MG IV ×2 (08:15→20:47)
[2023-08-07] MEDS: SODIUM CHLORIDE 0.9% 10ML VIAL 10 ML IV ×2 (08:15→20:47)
[2023-08-07] MEDS: PROCHLORPERAZINE 10MG/2ML VIAL 10 MG IV ×2 (08:15→16:07)
[2023-08-07 08:46] LABS: Basophils % 0.1 % (0.1-2.0); Hematocrit 44.4 % (42.0-52.0); Hemoglobin 14.9 g/dL (14.1-18.0); Lymphocytes # 2.1 K/mm3 (0.7-4.5); Lymphocytes % 14.6 % (10-50); Mean Corpuscular HGB Conc 33.6 g/dL (31.8-35.4); Mean Corpuscular Hemoglobin 29.7 pg (27.0-31.2); Mean Corpuscular Volume 88.2 fl (80-94); Mean Platelet Volume 9.3 fl (7.4-10.4); Monocytes # 0.7 K/mm3 (0.1-1.0); Neutrophils # 11.7 K/mm3 (1.8-7.8); Neutrophils % 80.3 % (37.0-80.0); Platelet Count 294 K/mm3 (142-424); Red Blood Count 5.04 M/mm3 (4.60-6.20); Red Cell Distribution Width 13.1 % (11.5-17.5); White Blood Count 14.5 K/mm3 (4.8-10.8)
[2023-08-07 08:50] LABS: Anion Gap 13.8 mEq/L (5-15); Blood Urea Nitrogen 32 mg/dl (9-20); Carbon Dioxide 37 mmol/L (22.0-30.0); Chloride 97 mmol/L (98-107); Creatinine Clearance Estimated 84 mL/min (50-200); Estimated Glomerular Filt Rate 78 ml/min (>60); GFR (African American) 94 ML/MIN (>60); Glucose 101 mg/dl (74-100); Potassium 3.8 mmoL/L (3.5-5.1); Sodium 144 mmol/L (136-145)
--- NOTE | 2023-08-07 09:30 | DIET.NUTRFU ---
Patient was sleeping upon visit, nursing aid reports breakfast refusal again due to nausea. Was able to consume 25% of dinner. Suggested to try a clear boost with lunch today to help provide some calorie and protein. He has not been able to consume much at all since admit on 08/04. He did receive lactated ringers on 08/04 and 08/05. Labs reviewed from today Na 144, potassium 3.8, BUN 32H and Cr 1.10 with glucose at 101H. Insulin is being held d/t poor po intake. Continues on compazine/zofran/protonix/maalox, carafate. No BM noted since admit. Will review with provider during rounds.
[2023-08-07 11:13] LABS: POC Glucose,Bedside 97 (70-110)
--- NOTE | 2023-08-07 15:19 | PC.NURSE ---
No acute changes this shift. Pt continues to c/o discomfort to abdomen. C/O N/V. Medicated per sep. Education provided on alternate options to relieve pain and help alleviate N/V. Pt verbally stated he understood. Call light within reach.
[2023-08-07 16:00] VITALS: BP 143/76; PULSE 94; RESP 16; TEMP 36.8; O2SAT 97
[2023-08-07 16:18] LABS: POC Glucose,Bedside 106 (70-110)
--- NOTE | 2023-08-07 17:11 | EXP.PN ---
Subjective *Date: 08/07/23 *Time: 17:11 Interval history: seen ay bedside, complains of Nausea, vomiting, not able to tolerate diet, not much improvement Exam Data for Last 24 hours Vital signs and Labs for Last 24 Hours: Temp Pulse Resp BP Pulse Ox O2 Del Method 98.2 F 94 H 16 143/76 H 97 Room Air 08/07/23 16:00 08/07/23 16:00 08/07/23 16:00 08/07/23 16:00 08/07/23 16:00 08/07/23 16:54 Laboratory Results - last 24 hr 08/06/23 22:32: POC Glucose 185 H 08/07/23 05:24: WBC 14.5 H, RBC 5.04, Hgb 14.9, Hct 44.4, MCV 88.2, MCH 29.7, MCHC 33.6, RDW 13.1, Plt Count 294, MPV 9.3, Neut % (Auto) 80.3 H, Lymph % (Auto) 14.6, [place] % (Auto) 5.0, Eos % (Auto) 0.0 L, Baso % (Auto) 0.1, Neut # (Auto) 11.7 H, Lymph # (Auto) 2.1, [place] # (Auto) 0.7, Eos # (Auto) 0.0, Baso # (Auto) 0.0, Sodium 144 08/07/23 05:24: Sodium 144, Potassium 3.8 08/07/23 05:24: Potassium 3.8, Chloride 96 L 08/07/23 05:24: Chloride 97 L, Carbon Dioxide 39 H 08/07/23 05:24: Carbon Dioxide 37 H, Anion Gap 12.8 08/07/23 05:24: Anion Gap 13.8, BUN 31 H 08/07/23 05:24: BUN 32 H, Creatinine 1.10 08/07/23 05:24: Creatinine 1.10, Estimated Creat Clear 84 08/07/23 05:24: Estimated Creat Clear 84, Estimated GFR 78 08/07/23 05:24: Estimated GFR 78, Est GFR ( Amer) 94 08/07/23 05:24: Est GFR ( Amer) 94, Glucose 103 H D 08/07/23 05:24: Glucose 101 H, Calcium 8.9 08/07/23 05:24: Calcium 9.0, Total Bilirubin 0.7, AST 39, ALT 30, Alkaline Phosphatase 90, Total Protein 7.7, Albumin 4.4, Globulin 3.3 H, Albumin/Globulin Ratio 1.3 08/07/23 06:08: POC Glucose 91 08/07/23 11:05: POC Glucose 97 08/07/23 16:11: POC Glucose 106 I & O for Last 24 hours: Intake & Output 08/04/23 08/05/23 08/06/23 08/07/23 23:59 23:59 23:59 23:59 Intake Total 0 / 0 470 / 720 1310 / 1430 240 / 240 Output Total 575 / 575 950 / 950 600 / 600 Balance 0 / -100 -105 / 145 360 / 480 -360 / -360 Weight 61.037 kg 61.433 kg 61.55 kg 61.825 kg Constitutional Constitutional: no acute distress *Routine HEENT Exam Head: Present normocephalic Eye: Present EOMI and PERRL ENT: Present mucous membranes moist *Routine Neck Exam Neck: Present supple; Absent lymphadenopathy *Routine Respiratory Exam Respiratory: Present CTA bilaterally *Routine Cardiovascular Exam Cardiovascular: Present RRR *Routine Abdominal Exam Abdominal: Present soft and normoactive bowel sounds; Absent tenderness *Routine Extremities Exam Extremities: Absent cyanosis, clubbing or edema *Routine Skin Exam Skin: Present warm; Absent rash *Routine Neurological Exam Neurological: Present alert and oriented X3 Assessment and Plan *Assessment and plan (1) Nausea and vomiting: Status: Acute Category: Medical Code(s): R11.2 - Nausea with vomiting, unspecified (2) Gastritis: Status: Acute Qualifiers: Chronicity: acute Gastritis type: unspecified gastritis Category: Medical Code(s): K29.70 - Gastritis, unspecified, without bleeding (3) Mixed acid base balance disorder: Status: Acute Category: Medical Code(s): E87.4 - Mixed disorder of acid-base balance (4) Cannabis hyperemesis syndrome concurrent with and due to cannabis dependence: Status: Acute Category: Medical Code(s): F12.288 - Cannabis dependence with other cannabis-induced disorder (5) Leukocytosis: Status: Acute Category: Medical Code(s): D72.829 - Elevated white blood cell count, unspecified (6) Diabetes mellitus: Status: Acute Qualifiers: Diabetes mellitus complication detail: with unspecified neuropathy Diabetes mellitus complication status: with neurologic complications Diabetes mellitus type: type 1 Qualified Code(s): E10.40 - Type 1 diabetes mellitus with diabetic neuropathy, unspecified Category: Medical Code(s): E11.9 - Type 2 diabetes mellitus without complications (7) Tobacco use: Status: Acute Category: Social Hx Code(s): Z72.0 - Tobacco use Plan 32 year old male who presented to ED for c/o nausea and vomiting that started 2 to 3 days ago. Presented to the ER because of inability to keep food down and intractable nausea and vomiting. Workup in the ER concerning for mixed acid-base disorder, intractable nausea and vomiting, dehydration. Medicine consulted for admission. Medicine agreed to admit for further management. Having limited response to Zofran and droperidol. Will add Compazine. Still having difficulty with p.o. intake. Persistent vomiting. Seeing improvement in labs. Continues to require inpatient management. Intractable nausea and vomiting GASTRITIS, Can not rule out Gastroparesis? ASA - improving - started on Zofran, compazine, pain control - Recommended patient trial a warm shower when his nausea returns. -continue pantoprazole 40 mg twice daily IV and sucralfate ACHS -Continue maintenance IV fluids at 150 cc an hour -Repeat CBC, CMP, magnesium ordered for the morning. - continue to monitor BMP CANNABIS ABUSE -Last use was Saturday A.M -Admits to using daily -Can not exclude cause in nausea and vomiting (Cannabinoid hypermesis syndrome) -Encouraged to take warm showers DIABETES - SS insulin low dose ordered - resume long acting insulin glargine 20 units BID TOBACCO ABUSE -nicotine patch PRN FULL CODE started on Diabetic diet DVT: scd advance diet, continue IV fluids, monitor BMP, dc once tolerates food and symptoms resolution
[2023-08-07 20:00] VITALS: BP 151/88; PULSE 108; RESP 18; TEMP 37.3; O2SAT 94
[2023-08-07 20:30] LABS: POC Glucose,Bedside 76 (70-110)
[2023-08-07] MEDS: SODIUM CHLORIDE 0.9% 10ML FLUSH SYRINGE 10 ML IV (20:50)
[2023-08-08] MEDS: ONDANSETRON 4MG/2ML VIAL 4 MG IV ×2 (00:22→05:57)
[2023-08-08] MEDS: MORPHINE 2MG/ML SYRINGE 1 MG IV ×3 (00:23→12:32)
[2023-08-08] MEDS: SODIUM CHLORIDE 0.9% 10ML FLUSH SYRINGE 10 ML IV ×2 (00:23→05:58)
[2023-08-08] MEDS: PROCHLORPERAZINE 10MG/2ML VIAL 10 MG IV (00:25)
[2023-08-08 04:00] VITALS: BP 150/90; PULSE 105; RESP 18; TEMP 37.1; O2SAT 97; BMI 18.4
--- NOTE | 2023-08-08 05:38 | PC.NURSE ---
Patient rested well this evening without acute changes. Medicated per MAR including PRN medications which patient called out for during an episode of severe retching around midnight. VSS, NAD.
[2023-08-08] MEDS: SUCRALFATE 1GM/10ML SUSP UDC 1 GM PO ×3 (05:57→16:31)
[2023-08-08 06:09] LABS: POC Glucose,Bedside 128 (70-110)
[2023-08-08 06:30] LABS: Basophils % 0.2 % (0.1-2.0); Eosinophils % 0.1 % (0.1-12.0); Hematocrit 41.6 % (42.0-52.0); Hemoglobin 14.6 g/dL (14.1-18.0); Lymphocytes # 1.9 K/mm3 (0.7-4.5); Lymphocytes % 18.4 % (10-50); Mean Corpuscular HGB Conc 35.2 g/dL (31.8-35.4); Mean Corpuscular Volume 85.2 fl (80-94); Mean Platelet Volume 8.4 fl (7.4-10.4); Monocytes # 0.6 K/mm3 (0.1-1.0); Monocytes % 6.1 % (1.7-9.3); Neutrophils # 7.6 K/mm3 (1.8-7.8); Neutrophils % 75.1 % (37.0-80.0); Platelet Count 251 K/mm3 (142-424); Red Blood Count 4.89 M/mm3 (4.60-6.20); Red Cell Distribution Width 12.8 % (11.5-17.5); White Blood Count 10.1 K/mm3 (4.8-10.8)
[2023-08-08 06:47] LABS: Alanine Aminotransferase 26 U/L (12-78); Albumin Level 4.2 g/dl (3.5-5.0); Albumin/Globulin Ratio 1.4 (1.1-1.8); Alkaline Phosphatase 84 U/L (38-126); Anion Gap 13.6 mEq/L (5-15); Aspartate Amino Transferase 33 U/L (17-59); Bilirubin,Total 0.8 mg/dl (0.2-1.3); Blood Urea Nitrogen 26 mg/dl (9-20); Calcium 8.5 mg/dl (8.4-10.2); Carbon Dioxide 36 mmol/L (22.0-30.0); Chloride 93 mmol/L (98-107); Creatinine Clearance Estimated 84 mL/min (50-200); Estimated Glomerular Filt Rate 78 ml/min (>60); GFR (African American) 94 ML/MIN (>60); Glucose 144 mg/dl (74-100); Potassium 3.6 mmoL/L (3.5-5.1); Sodium 139 mmol/L (136-145); Total Protein,Serum 7.2 g/dl (6.3-8.2)
[2023-08-08 08:00] VITALS: BP 145/92; PULSE 89; RESP 16; TEMP 36.8; O2SAT 100
[2023-08-08] MEDS: SODIUM CHLORIDE 0.9% 10ML VIAL 10 ML IV (09:41)
[2023-08-08] MEDS: PANTOPRAZOLE 40MG VIAL 40 MG IV (09:41)
[2023-08-08] MEDS: GABAPENTIN 300MG CAPSULE 300 MG PO (09:41)
[2023-08-08] MEDS: DICYCLOMINE 20 MG/2ML VIAL 10 MG IM (10:11)
[2023-08-08] MEDS: humaLOG 100 UNITS/ML 3ML VIAL (SSI) SQ ×2 (11:17→16:46)
[2023-08-08 11:22] LABS: POC Glucose,Bedside 247 (70-110)
--- NOTE | 2023-08-08 12:35 | DIET.NUTRFU ---
Addendum entered by Mariela Baird RD, LD 08/08/23 13:57: Saw after lunch, patient was able to eat 50% of jello, applesauce and a few bites of chicken broth. He reports he is feeling slightly better. Encouraged him to try alittle bit more at dinner Original Note: This RD expressed concern for poor intake with provider. Patient has been able to tolerate some jello. Nursing reported some vomiting over night but nothing so far this morning. Medications in place for nausea, PPI and carafate also in place. Just waiting for him to tolerate diet. Suggested TPN or dextrose via IV if not tolerating oral intake by tomorrow. Patient is at risk for malnutrition.
[2023-08-08 16:00] VITALS: BP 138/84; PULSE 86; RESP 17; TEMP 36.6; O2SAT 98
[2023-08-08 16:49] LABS: POC Glucose,Bedside 206 (70-110)
--- NOTE | 2023-08-08 17:13 | P.PN_ITS ---
Subjective *Date: 08/08/23 *Time: 17:13 Interval history: seen ay bedside, complains of Nausea, vomiting, not able to tolerate diet, not much improvement Exam Data for Last 24 hours Vital signs and Labs for Last 24 Hours: Temp Pulse Resp BP Pulse Ox O2 Del Method 98.2 F 89 16 145/92 H 100 Room Air 08/08/23 08:00 08/08/23 08:00 08/08/23 08:00 08/08/23 08:00 08/08/23 08:00 08/08/23 15:15 Laboratory Results - last 24 hr 08/07/23 20:16: POC Glucose 76 08/08/23 06:01: POC Glucose 128 H 08/08/23 06:11: WBC 10.1 D, RBC 4.89, Hgb 14.6, Hct 41.6 L, MCV 85.2, MCH 30.0, MCHC 35.2, RDW 12.8, Plt Count 251, MPV 8.4, Neut % (Auto) 75.1, Lymph % (Auto) 18.4, [place] % (Auto) 6.1, Eos % (Auto) 0.1, Baso % (Auto) 0.2, Neut # (Auto) 7.6, Lymph # (Auto) 1.9, [place] # (Auto) 0.6, Eos # (Auto) 0.0, Baso # (Auto) 0.0, Sodium 139, Potassium 3.6, Chloride 93 L, Carbon Dioxide 36 H, Anion Gap 13.6, BUN 26 H, Creatinine 1.10, Estimated Creat Clear 84, Estimated GFR 78, Est GFR ( Amer) 94, Glucose 144 H, Calcium 8.5, Total Bilirubin 0.8, AST 33, ALT 26, Alkaline Phosphatase 84, Total Protein 7.2, Albumin 4.2, Globulin 3.0, Albumin/Globulin Ratio 1.4 08/08/23 11:13: POC Glucose 247 H 08/08/23 16:31: POC Glucose 206 H I & O for Last 24 hours: Intake & Output 08/05/23 08/06/23 08/07/23 08/08/23 23:59 23:59 23:59 23:59 Intake Total 470 / 720 1310 / 1430 240 / 240 Output Total 575 / 575 950 / 950 600 / 975 850 / 850 Balance -105 / 145 360 / 480 -360 / -735 -850 / -850 Weight 61.433 kg 61.55 kg 61.825 kg 61.822 kg Constitutional Constitutional: no acute distress *Routine HEENT Exam Head: Present normocephalic Eye: Present EOMI and PERRL ENT: Present mucous membranes moist *Routine Neck Exam Neck: Present supple; Absent lymphadenopathy *Routine Respiratory Exam Respiratory: Present CTA bilaterally *Routine Cardiovascular Exam Cardiovascular: Present RRR *Routine Abdominal Exam Abdominal: Present soft and normoactive bowel sounds; Absent tenderness *Routine Extremities Exam Extremities: Absent cyanosis, clubbing or edema *Routine Skin Exam Skin: Present warm; Absent rash *Routine Neurological Exam Neurological: Present alert and oriented X3 Assessment and Plan *Assessment and plan (1) Nausea and vomiting: Status: Acute Category: Medical Code(s): R11.2 - Nausea with vomiting, unspecified (2) Gastritis: Status: Acute Qualifiers: Chronicity: acute Gastritis type: unspecified gastritis Category: Medical Code(s): K29.70 - Gastritis, unspecified, without bleeding (3) Mixed acid base balance disorder: Status: Acute Category: Medical Code(s): E87.4 - Mixed disorder of acid-base balance (4) Cannabis hyperemesis syndrome concurrent with and due to cannabis dependence: Status: Acute Category: Medical Code(s): F12.288 - Cannabis dependence with other cannabis-induced disorder (5) Leukocytosis: Status: Acute Category: Medical Code(s): D72.829 - Elevated white blood cell count, unspecified (6) Diabetes mellitus: Status: Acute Qualifiers: Diabetes mellitus complication detail: with unspecified neuropathy Diabetes mellitus complication status: with neurologic complications Diabetes mellitus type: type 1 Qualified Code(s): E10.40 - Type 1 diabetes mellitus with diabetic neuropathy, unspecified Category: Medical Code(s): E11.9 - Type 2 diabetes mellitus without complications (7) Tobacco use: Status: Acute Category: Social Hx Code(s): Z72.0 - Tobacco use Plan 32 year old male who presented to ED for c/o nausea and vomiting that started 2 to 3 days ago. Presented to the ER because of inability to keep food down and intractable nausea and vomiting. Workup in the ER concerning for mixed acid- base disorder, intractable nausea and vomiting, dehydration. Medicine consulted for admission. Medicine agreed to admit for further management. Having limited response to Zofran and droperidol. Will add Compazine. Still having difficulty with p.o. intake. Persistent vomiting. Seeing improvement in labs. Continues to require inpatient management. Intractable nausea and vomiting GASTRITIS, Can not rule out Gastroparesis? ASA - improving - started on Zofran, compazine, pain control - Recommended patient trial a warm shower when his nausea returns. -continue pantoprazole 40 mg twice daily IV and sucralfate ACHS -Continue maintenance IV fluids at 150 cc an hour -Repeat CBC, CMP, magnesium ordered for the morning. - continue to monitor BMP CANNABIS ABUSE -Last use was Saturday A.M -Admits to using daily -Can not exclude cause in nausea and vomiting (Cannabinoid hypermesis syndrome) -Encouraged to take warm showers DIABETES - SS insulin low dose ordered - resume long acting insulin glargine 20 units BID TOBACCO ABUSE -nicotine patch PRN FULL CODE started on Diabetic diet DVT: scd advance diet, continue IV fluids, monitor BMP, dc once tolerates food and symptoms resolution, continue to advance diet
--- NOTE | 2023-08-08 18:16 | EXP.DC.SUM ---
General Admission date:: 08/04/23 HPI HPI HPI: Mr. Schwab is 32-year-old male who presented with nausea vomiting and diarrhea. Also found to be tachycardic and dehydrated. History of cannabis hyperemesis, is also a type I diabetic. Initial workup in the ER shows tach Ck cysts. Had low concern for sepsis given to clear explanations, afebrile, and vomiting for 2 to 3 days. Received IV fluids. Workup showed mixed acid-base disorder with normal pH and dehydration. Trial droperidol with no benefit. Medicine was consulted for admission and further management. After arriving to the floor patient states that symptoms been going on for 2 to 3 days. He continues to have retching despite droperidol and Zofran. Exam fairly benign with no significant pain in his abdomen. Denies any blood in his stool but has had scant blood in his vomit. Stable on room air. No confusion, chest pain. Hospital Course Hospital Course Hospital Course: Patient was seen and evaluated at the bedside on the day of discharge. Patient is stable for discharge. Patient wishes to be discharged. All patient questions were answered and patient was given time to ask questions. Patient was discharged in stable condition. Patient understands that she can return to ER in case of any sudden changes in health. Total time spent on DC - 38 mins Patient mentions he is tolerating diet, he is dressed up in his regular clothes and requesting to be discharged, he mentions he is 'feeling great and back to his normal and would like to be discharged Exam Data for Last 24 hours Vital signs and Labs for Last 24 Hours: Temp Pulse Resp BP Pulse Ox O2 Del Method 98.2 F 89 16 145/92 H 100 Room Air 08/08/23 08:00 08/08/23 08:00 08/08/23 08:00 08/08/23 08:00 08/08/23 08:00 08/08/23 15:15 Laboratory Results - last 24 hr 08/07/23 20:16: POC Glucose 76 08/08/23 06:01: POC Glucose 128 H 08/08/23 06:11: WBC 10.1 D, RBC 4.89, Hgb 14.6, Hct 41.6 L, MCV 85.2, MCH 30.0, MCHC 35.2, RDW 12.8, Plt Count 251, MPV 8.4, Neut % (Auto) 75.1, Lymph % (Auto) 18.4, [place] % (Auto) 6.1, Eos % (Auto) 0.1, Baso % (Auto) 0.2, Neut # (Auto) 7.6, Lymph # (Auto) 1.9, [place] # (Auto) 0.6, Eos # (Auto) 0.0, Baso # (Auto) 0.0, Sodium 139, Potassium 3.6, Chloride 93 L, Carbon Dioxide 36 H, Anion Gap 13.6, BUN 26 H, Creatinine 1.10, Estimated Creat Clear 84, Estimated GFR 78, Est GFR ( Amer) 94, Glucose 144 H, Calcium 8.5, Total Bilirubin 0.8, AST 33, ALT 26, Alkaline Phosphatase 84, Total Protein 7.2, Albumin 4.2, Globulin 3.0, Albumin/Globulin Ratio 1.4 08/08/23 11:13: POC Glucose 247 H 08/08/23 16:31: POC Glucose 206 H I & O for Last 24 hours: Intake & Output 08/05/23 08/06/23 08/07/23 08/08/23 23:59 23:59 23:59 23:59 Intake Total 470 / 720 1310 / 1430 240 / 240 Output Total 575 / 575 950 / 950 600 / 975 850 / 850 Balance -105 / 145 360 / 480 -360 / -735 -850 / -850 Weight 61.433 kg 61.55 kg 61.825 kg 61.822 kg Results Data Completed and Pending Labs on day of discharge: Labs from last 24 hours 08/08/23 08/08/23 08/08/23 16:31 11:13 06:11 WBC 10.1 D RBC 4.89 Hgb 14.6 Hct 41.6 L MCV 85.2 MCH 30.0 MCHC 35.2 RDW 12.8 Plt Count 251 MPV 8.4 Neut % (Auto) 75.1 Lymph % (Auto) 18.4 [place] % (Auto) 6.1 Eos % (Auto) 0.1 Baso % (Auto) 0.2 Neut # (Auto) 7.6 Lymph # (Auto) 1.9 [place] # (Auto) 0.6 Eos # (Auto) 0.0 Baso # (Auto) 0.0 Sodium 139 Potassium 3.6 Chloride 93 L Carbon Dioxide 36 H Anion Gap 13.6 BUN 26 H Creatinine 1.10 Estimated Creat Clear 84 Estimated GFR 78 Est GFR ( Amer) 94 Glucose 144 H POC Glucose 206 H 247 H Calcium 8.5 Total Bilirubin 0.8 AST 33 ALT 26 Alkaline Phosphatase 84 Total Protein 7.2 Albumin 4.2 Globulin 3.0 Albumin/Globulin Ratio 1.4 08/08/23 08/07/23 06:01 20:16 WBC RBC Hgb Hct MCV MCH MCHC RDW Plt Count MPV Neut % (Auto) Lymph % (Auto) [place] % (Auto) Eos % (Auto) Baso % (Auto) Neut # (Auto) Lymph # (Auto) [place] # (Auto) Eos # (Auto) Baso # (Auto) Sodium Potassium Chloride Carbon Dioxide Anion Gap BUN Creatinine Estimated Creat Clear Estimated GFR Est GFR ( Amer) Glucose POC Glucose 128 H 76 Calcium Total Bilirubin AST ALT Alkaline Phosphatase Total Protein Albumin Globulin Albumin/Globulin Ratio DS: Diagnosis Discharge Diagnosis (1) Nausea and vomiting: Status: Acute Code(s): R11.2 - Nausea with vomiting, unspecified (2) Gastritis: Status: Acute Code(s): K29.70 - Gastritis, unspecified, without bleeding Qualifiers: Chronicity: acute Gastritis type: unspecified gastritis (3) Mixed acid base balance disorder: Status: Acute Code(s): E87.4 - Mixed disorder of acid-base balance (4) Cannabis hyperemesis syndrome concurrent with and due to cannabis dependence: Status: Acute Code(s): F12.288 - Cannabis dependence with other cannabis-induced disorder (5) Leukocytosis: Status: Acute Code(s): D72.829 - Elevated white blood cell count, unspecified (6) Diabetes mellitus: Status: Acute Code(s): E11.9 - Type 2 diabetes mellitus without complications Qualifiers: Diabetes mellitus complication detail: with unspecified neuropathy Diabetes mellitus complication status: with neurologic complications Diabetes mellitus type: type 1 Qualified Code(s): E10.40 - Type 1 diabetes mellitus with diabetic neuropathy, unspecified (7) Tobacco use: Status: Acute Code(s): Z72.0 - Tobacco use Meds Home Medications and Allergies Home Medications Medication Instructions Recorded Confirmed Type insulin glargine 100 unit/mL 20 unit (0.2 mL) SQ BID Diabetes 04/24/23 08/09/23 Rx subcutaneous solution (Lantus 30 days #12 mL U-100 Insulin) insulin regular human 100 unit/mL 10 - 15 unit (0.1 - 0.15 mL) SQ 04/24/23 08/09/23 Rx injection solution QID Diabetes 30 days #10 mL gabapentin 300 mg capsule 300 mg PO BID Pain 08/05/23 08/09/23 History gabapentin 300 mg capsule 600 mg PO HS Pain 08/05/23 08/09/23 History dicyclomine 10 mg capsule 10 mg PO TIDP PRN Cramping 5 days 08/08/23 08/09/23 Rx #15 caps omeprazole 40 mg capsule,delayed 40 mg PO BID Acid Reflux 08/10/23 08/09/23 History release sucralfate 100 mg/mL oral 1 g PO ACHS Acid Reflux 08/10/23 08/09/23 History suspension New Prescriptions to Start Prescriptions: Sydney Curiel Allergies Allergy/AdvReac Type Severity Reaction Status Date / Time metoclopramide AdvReac Anxiety Verified 08/09/23 16:24 Discharge Plan Disposition Patient Disposition: Home, Self-Care Condition: Good Discharge Order Discharge Orders: Discharge Order (Routine); Ordered 08/08/23 Ordered By: Sydney Rivera Follow up Plan Follow up with: Bautista Ann DO [Primary Care Provider] - 2 weeks Prescriptions/Medication Reconciliation: New dicyclomine 10 mg Capsule 10 mg PO TIDP PRN (Reason: Cramping) 5 Days Qty: 15 0RF Continued insulin glargine [Lantus U-100 Insulin] 100 unit/mL solution 20 unit SQ BID 30 Days Qty: 12 4RF insulin regular human 100 unit/mL solution 10 - 15 unit SQ QID 30 Days Qty: 10 4RF gabapentin 300 mg capsule 300 mg PO BID Patient Comments: TAKE 1 CAPSULE BY MOUTH IN THE MORNING AND 1 IN THE AFTERNOON AND 2 AT BEDTIME Rx Instructions: Take one capsule in the morning, and one capsule in the afternoon gabapentin 300 mg capsule 600 mg PO HS No Action sucralfate 100 mg/mL suspension 1 g PO ACHS omeprazole 40 mg capsule,delayed release(DR/EC) 40 mg PO BID Problem Reconciliation Problems Reviewed?: Yes Patient Discharge Instructions ACTIVITY: Ambulate as tolerated DIET: continue same diet Patient Instructions: DI for Nausea -- Adult, Nausea and Vomiting-Adult, DI for Cannabinoid Hyperemesis Syndrome Providers Primary Care Provider: Bautista Ann Admit Provider: Ubaldo Osborne Attending Provider: Ubaldo Osborne
--- NOTE | 2023-08-09 11:11 | CARE MANAGER ---
Contacted patient related to hospital discharge. He states he feels horrible but about the same as he did. He does have all new medications. He denies questions or concerns. He is going to make follow up appointment with Dr. Ann. DENICE Green
== END 2023-08-08 18:41 | disposition home or self-care (01) | DRG 392 ==
LOC: ER 15:13 → 2ND 16:27
PROVIDERS: Internal Medicine; Admitting Provider Internal Medicine Adolescent Medicine; Emergency Provider Student in an Organized Health Care Education/Training Program; PCP Internal Medicine; Visit Provider Internal Medicine Adolescent Medicine
DX: K29.70 Gastritis, unspecified, without bleeding (principal); E87.4 Mixed disorder of acid-base balance; N17.9 Acute kidney failure, unspecified; E11.40 Type 2 diabetes mellitus with diabetic neuropathy, unspecified; Z79.4 Long term (current) use of insulin; F12.288 Cannabis dependence with other cannabis-induced disorder; Z72.0 Tobacco use; R11.2 Nausea with vomiting, unspecified; E86.0 Dehydration
CPT/HCPCS: 36415; 80048; 80053; 82803; 82962; 83690; 83735; 84100; 85007; 85025; 93005; 99285; J1790; J2405

== ENCOUNTER 2023-08-09 14:01 | Observation (INO) | payer BC, SELFPAY ==
[2023-08-09] VITALS (14 sets, daily range): BP systolic 106–141; BP diastolic 58–95; PULSE 95–125; RESP 17–20; TEMP 36.6–37.2; O2SAT 95–100; BMI 19.0; BMI 18.3
--- NOTE | 2023-08-09 14:00 | ECG_ITS ---
APPROVED REPORT Exam: Resting ECG HR:126 bpm ECG Measurements Heart Rate 126 AXES ME 92 P 85 QRSd 81 QRS 77 QT 314 T 12 QTc 388 Conclusion SINUS TACHYCARDIA WITH SHORT ME INTERVAL NONSPECIFIC ST & T-WAVE ABNORMALITY ABNORMAL RHYTHM ECG UNCONFIRMED REPORT Electronically signed by : Prashant Hanson MD 08/10/2023 08:52:30
[2023-08-09 14:20] LABS: Basophils % 0.2 % (0.1-2.0); Eosinophils % 0.1 % (0.1-12.0); Hematocrit 41.5 % (42.0-52.0); Hemoglobin 16.1 g/dL (14.1-18.0); Lymphocytes # 1.6 K/mm3 (0.7-4.5); Lymphocytes % 11.9 % (10-50); Mean Corpuscular HGB Conc 38.7 g/dL (31.8-35.4); Mean Corpuscular Volume 85.2 fl (80-94); Mean Platelet Volume 8.7 fl (7.4-10.4); Monocytes # 0.6 K/mm3 (0.1-1.0); Monocytes % 4.8 % (1.7-9.3); Neutrophils # 10.9 K/mm3 (1.8-7.8); Neutrophils % 83.1 % (37.0-80.0); Platelet Count 325 K/mm3 (142-424); Red Blood Count 4.87 M/mm3 (4.60-6.20); Red Cell Distribution Width 12.8 % (11.5-17.5); White Blood Count 13.1 K/mm3 (4.8-10.8)
[2023-08-09] MEDS: LACTATED RINGERS 1000ML 1,000 ML 999 ML IV (14:20)
[2023-08-09 14:21] LABS: Chloride 90 mmol/L (98-107); Potassium 4.4 mmoL/L (3.5-5.1); Sodium 135 mmol/L (136-145)
--- NOTE | 2023-08-09 14:21 | PC.NURSE ---
DR SMILEY AT BEDSIDE
--- NOTE | 2023-08-09 14:23 | HMH.EDGENADL ---
Discharge Plan Disposition Chief Complaint: Nausea/Vomiting/Diarrhea Discharge ED Provider: Deion Reynaga General Adult HPI General Chief complaint: Nausea/Vomiting/Diarrhea Stated complaint: vomiting Time Seen by Provider: 08/09/23 14:05 Mode of Arrival: Wheelchair Source of Information: Patient Limitations: No Limitations Description of Symptoms (Recalled from ER Triage Doc. by RN): c/o vomiting for a few days, was released yesterday from [facility] for vomiting. History of Present Illness HPI narrative: Patient presents with nausea, vomiting, diarrhea, diffuse abdominal pain, consistent with known history of cannabinoid hyperemesis syndrome as well as DKA in the setting of type 1 diabetes. History is limited secondary to severe pain but patient denies any fevers or chills. Previous therapies include insulin this morning. Patient had recent admission for similar symptoms but reports he worsened as soon as he got home. Symptoms were gradual in onset, constant, worsening. He denies any headache, he denies any chest pain. He describes shortness of air. Related Data Home Medications Medication Instructions Recorded Confirmed gabapentin 300 mg capsule 300 mg PO BID 08/05/23 08/05/23 gabapentin 300 mg capsule 600 mg PO HS 08/05/23 08/05/23 Previous Rx's Medication Instructions Recorded insulin glargine 100 unit/mL 20 unit (0.2 mL) SQ BID Diabetes 04/24/23 subcutaneous solution (Lantus 30 days #12 mL U-100 Insulin) insulin regular human 100 unit/mL 10 - 15 unit (0.1 - 0.15 mL) SQ 04/24/23 injection solution QID Diabetes 30 days #10 mL dicyclomine 10 mg capsule 10 mg PO TIDP PRN Cramping 5 days 08/08/23 #15 caps omeprazole 40 mg capsule,delayed 40 mg PO BID #14 caps 08/08/23 release sucralfate 100 mg/mL oral 1 g (10 mL) PO ACHS 14 days #560 mL 08/08/23 suspension Allergies Allergy/AdvReac Type Severity Reaction Status Date / Time metoclopramide AdvReac Anxiety Verified 05/09/23 11:11 [facility] Disclaimer: The information contained in this section may have been updated after the patient was seen, as this information can be updated by other users. 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 Pneumonia Pneumonia with cavity of lung Vomiting alone Surgical History History of appendectomy Family History Family history non-contributory Social History Smoking Status: Unknown if ever smoked alcohol intake: never substance use type: marijuana current occupational status: other Travel in the last 8 weeks: None household members: friend(s) housing: house current occupational exposures/hazards: No caffeine: No ROS Obtained: Yes Systems reviewed as appropriate & no additional complaints except as documented As per HPI Physical Exam General General appearance: alert and in distress Head Head exam: atraumatic and normocephalic Eye Eye exam: Present normal appearance Neck Neck exam: Present normal inspection Chest Chest inspection: Present normal inspection and symmetric chest wall rise Respiratory Respiratory exam: Present normal lung sounds bilaterally; Absent respiratory distress Cardiovascular Cardiovascular exam: Present regular rate and normal rhythm Abdominal Exam Abdominal exam: Present soft and tenderness Abdominal tenderness: Present moderate Neurological Exam Neurological exam: Present alert and oriented X3 Psychiatric Psychiatric exam: Present normal affect and normal mood Skin Skin exam: Present warm, dry and other (Dry mucous membranes, delayed capillary refill) Medical Decision Making Medical Records Medical records reviewed: Yes I reviewed the patient's medical records. Chas Inquiry Pt receiving controlled substance: No Vital Signs: 08/09/23 14:02 08/09/23 14:30 08/09/23 15:09 Temperature 99.0 F Temperature Source Oral Pulse Rate 98 H Pulse Rate [Left Radial] 125 H Respiratory Rate 18 Blood Pressure 141/79 H 109/58 L Blood Pressure [Right Arm] 135/95 H Blood Pressure Mean 99 Blood Pressure Mean [Right Arm] 108 Blood Pressure Source [Right Arm] Automatic Cuff Blood Pressure Position [Right Arm] Sitting 02 Sat by Pulse Oximetry 100 97 Oxygen Delivery Method Room Air 08/09/23 15:30 08/09/23 16:00 Temperature Temperature Source Pulse Rate 107 H 105 H Pulse Rate [Left Radial] Respiratory Rate Blood Pressure 106/60 L 119/79 Blood Pressure [Right Arm] Blood Pressure Mean Blood Pressure Mean [Right Arm] Blood Pressure Source [Right Arm] Blood Pressure Position [Right Arm] 02 Sat by Pulse Oximetry 98 98 Oxygen Delivery Method Room Air Lab Data Lab Results 08/09/23 14:05: WBC 13.1 H D, RBC 4.87, Hgb 16.1, Hct 41.5 L, MCV 85.2, MCH 33.0 H, MCHC 38.7 H, RDW 12.8, Plt Count 325 D, MPV 8.7, Neut % (Auto) 83.1 H, Lymph % (Auto) 11.9, [place] % (Auto) 4.8, Eos % (Auto) 0.1, Baso % (Auto) 0.2, Neut # (Auto) 10.9 H, Lymph # (Auto) 1.6, [place] # (Auto) 0.6, Eos # (Auto) 0.0, Baso # (Auto) 0.0, Sodium 135 L, Potassium 4.4 D, Chloride 90 L, Carbon Dioxide 20 L, Anion Gap 29.4 H, BUN 31 H, Creatinine 1.20, Estimated Creat Clear 79, Estimated GFR 70, Est GFR ( Amer) 85, Glucose 411 H*, Calcium 9.4, Phosphorus 3.7, Magnesium 2.1, Total Bilirubin 1.3, AST 39, ALT 36 D, Alkaline Phosphatase 115, Total Protein 7.4, Albumin 4.5, Globulin 2.9, Albumin/Globulin Ratio 1.6, Acetone Level Moderate 08/09/23 14:31: VBG pH 7.41, VBG pCO2 27.1 L, VBG pO2 56.1 H, VBG HCO3 16.9 L, VBG Total CO2 17.7 L, VBG O2 Saturation 89.2 H, VBG Base Excess -7.7 L 08/09/23 14:05 08/09/23 14:05 Orders (Tests/Meds): ED MEDICATIONS Generic Name Dose Route Start Last Admin Trade Name Freq PRN Reason Stop Dose Admin Sodium Chloride 1,000 mls @ 999 mls/hr 08/09/23 15:46 08/09/23 16:06 Sod Chlor 0.9% 1000ml Bag IV 08/09/23 16:46 999 mls/hr .Q1H1M ONE Administration Sodium Chloride 10 ml 08/09/23 14:11 Sodium Chloride 0.9% 10ml Flush Syringe IV 09/08/23 14:10 NEEDED PRN Maintain IV Site Discontinued Medications Generic Name Dose Route Start Last Admin Trade Name Freq PRN Reason Stop Dose Admin Lactated Ringer's 1,000 mls @ 999 mls/hr 08/09/23 14:11 08/09/23 14:20 Lactated Ringer's 1000 Ml Bag IV 08/09/23 15:11 999 mls/hr .Q1H1M ONE Administration Insulin Human Regular 10 unit 08/09/23 15:46 08/09/23 16:06 Insulin Human Regular 100 Units/Ml 10ml Vial IVP 08/09/23 15:47 10 unit ONCE ONE Administration Morphine Sulfate 4 mg 08/09/23 14:21 08/09/23 14:27 Morphine 4mg/Ml Syringe IV 08/09/23 14:22 4 mg ONCE ONE Administration Ondansetron HCl 4 mg 08/09/23 14:11 08/09/23 14:25 Ondansetron 4mg/2ml Vial IV 08/09/23 14:12 4 mg ONCE ONE Administration ORDERS Category Date Time Status Acetone, Serum (Rapid) Stat Lab 08/09/23 14:05 Completed Complete Blood Count Auto Diff Stat Lab 08/09/23 14:05 Completed Comprehensive Metabolic Panel Stat Lab 08/09/23 14:05 Completed MAG [Magnesium] Stat Lab 08/09/23 14:05 Completed Osmolality Stat Lab 08/09/23 14:21 Ordered PHOS [Phosphorous] Stat Lab 08/09/23 14:05 Completed VBG [Venous Blood Gas] Stat RT 08/09/23 14:31 Completed Medical Decision Narrative: Patient with history and exam per above presenting for evaluation of hyperglycemia, nausea, vomiting Diagnoses considered include DKA, HHS, nonketotic hyperglycemia, infection, cannabinoid hyperemesis syndrome ED workup and treatment included: ED MEDICATIONS Generic Name Dose Route Start Last Admin Trade Name Freq PRN Reason Stop Dose Admin Sodium Chloride 1,000 mls @ 999 mls/hr 08/09/23 15:46 08/09/23 16:06 Sod Chlor 0.9% 1000ml Bag IV 08/09/23 16:46 999 mls/hr .Q1H1M ONE Administration Sodium Chloride 10 ml 08/09/23 14:11 Sodium Chloride 0.9% 10ml Flush Syringe IV 09/08/23 14:10 NEEDED PRN Maintain IV Site Discontinued Medications Generic Name Dose Route Start Last Admin Trade Name Ayan PRN Reason Stop Dose Admin Lactated Ringer's 1,000 mls @ 999 mls/hr 08/09/23 14:11 08/09/23 14:20 Lactated Ringer's 1000 Ml Bag IV 08/09/23 15:11 999 mls/hr .Q1H1M ONE Administration Insulin Human Regular 10 unit 08/09/23 15:46 08/09/23 16:06 Insulin Human Regular 100 Units/Ml 10ml Vial IVP 08/09/23 15:47 10 unit ONCE ONE Administration Morphine Sulfate 4 mg 08/09/23 14:21 08/09/23 14:27 Morphine 4mg/Ml Syringe IV 08/09/23 14:22 4 mg ONCE ONE Administration Ondansetron HCl 4 mg 08/09/23 14:11 08/09/23 14:25 Ondansetron 4mg/2ml Vial IV 08/09/23 14:12 4 mg ONCE ONE Administration ORDERS Category Date Time Status Acetone, Serum (Rapid) Stat Lab 08/09/23 14:05 Completed Complete Blood Count Auto Diff Stat Lab 08/09/23 14:05 Completed Comprehensive Metabolic Panel Stat Lab 08/09/23 14:05 Completed MAG [Magnesium] Stat Lab 08/09/23 14:05 Completed Osmolality Stat Lab 08/09/23 14:21 Ordered PHOS [Phosphorous] Stat Lab 08/09/23 14:05 Completed VBG [Venous Blood Gas] Stat RT 08/09/23 14:31 Completed Labs were independently interpreted by me, significant for elevated anion gap, hyperglycemia, normal pH, bicarb 16.9, pCO2 27.1, pH 7.41, moderate ketone level My clinical impression at this time is most consistent with DKA, patient is not acidotic but this is likely compensated. For this reason, patient will likely benefit from admission to the hospital for further workup and treatment. Patient was excepted by hospitalist. Critical Care Critical Care Time Critical Care Time: No
[2023-08-09 14:24] LABS: Alanine Aminotransferase 36 U/L (12-78); Albumin Level 4.5 g/dl (3.5-5.0); Albumin/Globulin Ratio 1.6 (1.1-1.8); Alkaline Phosphatase 115 U/L (38-126); Anion Gap 29.4 mEq/L (5-15); Aspartate Amino Transferase 39 U/L (17-59); Bilirubin,Total 1.3 mg/dl (0.2-1.3); Blood Urea Nitrogen 31 mg/dl (9-20); Carbon Dioxide 20 mmol/L (22.0-30.0); Creatinine Clearance Estimated 79 mL/min (50-200); Estimated Glomerular Filt Rate 70 ml/min (>60); GFR (African American) 85 ML/MIN (>60); Globulin 2.9 g/dL (1.3-3.2); Total Protein,Serum 7.4 g/dl (6.3-8.2)
[2023-08-09 14:25] LABS: Calcium 9.4 mg/dl (8.4-10.2)
[2023-08-09] MEDS: ONDANSETRON 4MG/2ML VIAL 4 MG IV ×2 (14:25→21:15)
[2023-08-09] MEDS: MORPHINE 4MG/ML SYRINGE 4 MG IV (14:27)
[2023-08-09 14:28] LABS: Glucose 411 mg/dl (74-100)
--- NOTE | 2023-08-09 14:31 | PC.NURSE ---
respiratory aware of vbg order and blood in lab
--- NOTE | 2023-08-09 14:32 | PC.NURSE ---
critical glucose of 411, aware
[2023-08-09 14:36] LABS: VBG Base Excess -7.7 mmol/L (-2.4-2.3); VBG HCO3 16.9 mmol/L (23-30); VBG Oxygen Saturation 89.2 % (50-70); VBG PCO2 27.1 mmol/L (35-51); VBG PH 7.41 mmol/L (7.31-7.41); VBG PO2 56.1 mmol/L (28-40); VBG Total CO2 17.7 mmol/L (23-27)
[2023-08-09 14:38] LABS: Acetone, Serum (Rapid) Moderate (None Detect)
[2023-08-09 14:39] LABS: Magnesium 2.1 mg/dl (1.6-2.3); Phosphorous 3.7 mg/dl (2.5-4.5)
--- NOTE | 2023-08-09 15:11 | PC.NURSE ---
Rounded on pt. Pt resting with eyes closed. Respirations are even and unlabored. Visitor at BS and call light within reach.
--- NOTE | 2023-08-09 16:04 | PC.NURSE ---
casting house laborer aware of admission for DKA
[2023-08-09] MEDS: 0.9 % SODIUM CHLORIDE 1000ML 1,000 ML 999 ML IV (16:06)
[2023-08-09] MEDS: INSULIN HUMAN REGULAR 100 UNITS/ML 10ML VIAL 10 UNIT IVP (16:06)
--- NOTE | 2023-08-09 16:27 | PC.NURSE ---
REPORT CALLED TO DENICE CORONA
--- NOTE | 2023-08-09 16:50 | PC.NURSE ---
arrived by stretcher from ED
--- NOTE | 2023-08-09 17:07 | PC.NURSE ---
PT ARRIVED TO THE FLOOR VIA STRETCHER POSITIONED ON HIS RIGHT SIDE. PT WAS ASKED IF HE COULD MOVE FROM STRETCHER TO BED AND STATED I CAN'T MOVE RIGHT NOW B/C I'M IN TOO MUCH PAIN . STAFF MOVED PT FROM BED TO STRETCHER. NOTIFIED ABOUT PT BEING ON THE FLOOR AND STATED HE WAS IN PAIN.
[2023-08-09] MEDS: SODIUM CHLORIDE 955 ML IV (17:29)
--- NOTE | 2023-08-09 17:34 | P.HP_ITS ---
History of Present Illness *Admission Date: 08/09/23 *Reason for visit:: Nausea vomiting *History of present illness: Patient is a patient is a 32-year-old male with past medical history of diabetes mellitus who presented to hospital due to nausea vomiting abdominal pain. Patient was recently discharged from the hospital after feeling well. Patient mentions he has not been able to hold on the food. He otherwise denied fever chills diarrhea constipation dysuria. He mentions his abdominal pain is generalized, 10/10 in intensity, it feels like DKA. He has previous episodes of DKA as well. [facility] Disclaimer: The information contained in this section may have been updated after the patient was seen, as this information can be updated by other users. 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 Pneumonia Pneumonia with cavity of lung Vomiting alone Surgical History History of appendectomy Family History (Updated 08/09/23 @ 16:41 by Ana Smith RN) Other Family history non-contributory No significant family history Social History (Updated 08/09/23 @ 16:42 by Ana Smith RN) Smoking Status: Unknown if ever smoked alcohol intake: never substance use type: marijuana current occupational status: other Travel in the last 8 weeks: None household members: friend(s) housing: house current occupational exposures/hazards: No caffeine: No Review of Systems Review of Systems Review of systems (narrative): as per [facility] Meds Home Medications and Allergies Home Medications Medication Instructions Recorded Confirmed Type insulin glargine 100 unit/mL 20 unit (0.2 mL) SQ BID Diabetes 04/24/23 08/09/23 Rx subcutaneous solution (Lantus 30 days #12 mL U-100 Insulin) insulin regular human 100 unit/mL 10 - 15 unit (0.1 - 0.15 mL) SQ 04/24/23 08/09/23 Rx injection solution QID Diabetes 30 days #10 mL gabapentin 300 mg capsule 300 mg PO BID 08/05/23 08/09/23 History gabapentin 300 mg capsule 600 mg PO HS 08/05/23 08/09/23 History dicyclomine 10 mg capsule 10 mg PO TIDP PRN Cramping 5 days 08/08/23 08/09/23 Rx #15 caps omeprazole 40 mg capsule,delayed 40 mg PO BID #14 caps 08/08/23 08/09/23 Rx release sucralfate 100 mg/mL oral 1 g (10 mL) PO ACHS 14 days #560 mL 08/08/23 08/09/23 Rx suspension New Prescriptions to Start Prescriptions: Allergies Allergy/AdvReac Type Severity Reaction Status Date / Time metoclopramide AdvReac Anxiety Verified 08/09/23 16:24 Exam Data for Last 24 hours Vital signs and Labs for Last 24 Hours: Temp Pulse Resp BP Pulse Ox O2 Del Method 98.6 F 110 H 18 116/69 98 Room Air 08/09/23 16:43 08/09/23 16:43 08/09/23 16:43 08/09/23 16:43 08/09/23 16:30 08/09/23 17:00 Laboratory Results - last 24 hr 08/09/23 14:05: WBC 13.1 H D, RBC 4.87, Hgb 16.1, Hct 41.5 L, MCV 85.2, MCH 33.0 H, MCHC 38.7 H, RDW 12.8, Plt Count 325 D, MPV 8.7, Neut % (Auto) 83.1 H, Lymph % (Auto) 11.9, [place] % (Auto) 4.8, Eos % (Auto) 0.1, Baso % (Auto) 0.2, Neut # (Auto) 10.9 H, Lymph # (Auto) 1.6, [place] # (Auto) 0.6, Eos # (Auto) 0.0, Baso # (Auto) 0.0, Sodium 135 L, Potassium 4.4 D, Chloride 90 L, Carbon Dioxide 20 L, Anion Gap 29.4 H, BUN 31 H, Creatinine 1.20, Estimated Creat Clear 79, Estimated GFR 70, Est GFR ( Amer) 85, Glucose 411 H*, Calcium 9.4, Phosphorus 3.7, Magnesium 2.1, Total Bilirubin 1.3, AST 39, ALT 36 D, Alkaline Phosphatase 115, Total Protein 7.4, Albumin 4.5, Globulin 2.9, Albumin/Globulin Ratio 1.6, Acetone Level Moderate 08/09/23 14:31: VBG pH 7.41, VBG pCO2 27.1 L, VBG pO2 56.1 H, VBG HCO3 16.9 L, VBG Total CO2 17.7 L, VBG O2 Saturation 89.2 H, VBG Base Excess -7.7 L I & O for Last 24 hours: Intake & Output 08/06/23 08/07/23 08/08/23 08/09/23 23:59 23:59 23:59 23:59 Weight 61.348 kg Constitutional Constitutional: no acute distress *Routine HEENT Exam Head: Present normocephalic Eye: Present EOMI and PERRL ENT: Present mucous membranes moist *Routine Neck Exam Neck: Present supple; Absent lymphadenopathy *Routine Respiratory Exam Respiratory: Present CTA bilaterally *Routine Cardiovascular Exam Cardiovascular: Present RRR *Routine Abdominal Exam Abdominal: Present soft, normoactive bowel sounds and tenderness Comments: generalized abdominal tenderness noted *Routine Rectal Exam Rectal:: deferred *Routine Genitalia Exam Genitalia:: deferred *Routine Extremities Exam Extremities: Absent cyanosis, clubbing or edema *Routine Skin Exam Skin: Present warm; Absent rash *Routine Neurological Exam Neurological: Present alert and oriented X3 Assessment and Plan *Assessment and plan (1) DKA, type 1: Status: Acute Category: Medical Code(s): E10.10 - Type 1 diabetes mellitus with ketoacidosis without coma (2) Leukocytosis: Status: Acute Category: Medical Code(s): D72.829 - Elevated white blood cell count, unspecified (3) Nausea and vomiting: Status: Acute Category: Medical Code(s): R11.2 - Nausea with vomiting, unspecified Plan Patient is a patient is a 32-year-old male with past medical history of diabetes mellitus who presented to hospital due to nausea vomiting abdominal pain. Patient was recently discharged from the hospital after feeling well. Patient mentions he has not been able to hold on the food. He otherwise denied fever chills diarrhea constipation dysuria. He mentions his abdominal pain is generalized, 10/10 in intensity, it feels like DKA. He has previous episodes of DKA as well. Assessment Diabetic ketoacidosis Leukocytosis likely reactive Hypoglycemia Intractable nausea vomiting abdominal pain likely secondary to DKA Plan Start aggressive IV fluid therapy IV insulin N.p.o. Frequent BMP Frequent glucose checks Monitor and replace electrolytes Pain control As needed Zofran DVT prophylaxis-Lovenox
[2023-08-09] MEDS: MORPHINE 2MG/ML SYRINGE 2 MG IV ×2 (17:35→21:40)
[2023-08-09 17:42] LABS: Anion Gap 24.3 mEq/L (5-15); Blood Urea Nitrogen 30 mg/dl (9-20); Calcium 8.4 mg/dl (8.4-10.2); Carbon Dioxide 18 mmol/L (22.0-30.0); Chloride 99 mmol/L (98-107); Creatinine Clearance Estimated 77 mL/min (50-200); Estimated Glomerular Filt Rate 70 ml/min (>60); GFR (African American) 85 ML/MIN (>60); Glucose 310 mg/dl (74-100); Glucose,Random 310 mg/dL (74-100); Potassium 3.3 mmoL/L (3.5-5.1); Sodium 138 mmol/L (136-145)
--- NOTE | 2023-08-09 17:46 | PC.NURSE ---
PT WAS MEDICATED WITH MORPHINE FOR ABDOMINAL PAIN RATE 04/30. RADIOLOGY CAME TO THE FLOOR TO TAKE PT DOWN FOR ABDOMINAL CT. PT REFUSED TO GO DOWN RIGHT NOW DUE TO PAIN.
--- NOTE | 2023-08-09 17:49 | HMH.ITSTN ---
attempted to get pt for scan, currently refusing to come due to pain; RN aware, will check back later
[2023-08-09 17:51] LABS: POC Glucose,Bedside 274 (70-110)
[2023-08-09] MEDS: INSULIN REGULAR, HUMAN 100 UNIT in 0.9 % SODIUM CHLORIDE 100 ML 6.41000000000000014 UNIT IV (18:19)
[2023-08-09] MEDS: 0.9 % SODIUM CHLORIDE 1000ML 1,000 ML 150 ML IV (19:30)
--- NOTE | 2023-08-09 19:30 | HMH.ITSTN ---
CALLED AND TALKED TO JUAN MANUEL BUCKNER TO SEE IF PATIENT WANTED TO COME DOWN FOR CT AGAIN, PT SAID HIS PAIN WAS BACK AND DIDNT WANT TO COME DOWN AT THIS TIME.
--- NOTE | 2023-08-09 19:33 | PC.NURSE ---
Pt encouraged to go to CT when radiology called but pt once again refused.
[2023-08-09] MEDS: 0.9% NaCl w/40mEq KCL 1,000 ML 100 ML IV (20:50)
[2023-08-09 21:08] LABS: Chloride 104 mmol/L (98-107); Sodium 137 mmol/L (136-145)
[2023-08-09 21:09] LABS: Potassium 3.2 mmoL/L (3.5-5.1)
[2023-08-09 21:11] LABS: Blood Urea Nitrogen 26 mg/dl (9-20); Creatinine Clearance Estimated 92 mL/min (50-200); Estimated Glomerular Filt Rate 87 ml/min (>60); GFR (African American) 105 ML/MIN (>60)
[2023-08-09 21:12] LABS: Anion Gap 11.2 mEq/L (5-15); Calcium 7.3 mg/dl (8.4-10.2); Carbon Dioxide 25 mmol/L (22.0-30.0); Glucose 176 mg/dl (74-100)
--- NOTE | 2023-08-09 23:05 | PC.NURSE ---
Ryan Brandon APRN notified of Anion gap being closed. Told RN to keep on Insulin gtt a couple more hours then will transition off. Currently Insulin gtt is going at 1.6 units/hr d/t most recent FBS being 79. Will continue hourly FBS checks.
--- NOTE | 2023-08-09 23:19 | HMH.ITSTN ---
CHECKED WITH NURSE QUINTANILLA AGAIN, PT REFUSED TO COME DOWN AGAIN. WILL CHECK AGAIN IN THE MORNING.
--- NOTE | 2023-08-09 23:20 | PC.NURSE ---
Radiology called asking if pt is willing to come to CT. Pt continuing to refuse CT of abd. Encouraged and educated on importance of going to CT. Pt still refusing at this time. SPICE ROOM WORKER is aware.
--- NOTE | 2023-08-09 23:54 | PC.NURSE ---
FBS 53 at midnight check. Pt not symptomatic. ADMINISTRATIVE PROGRAM SPECIALIST aware. Orders placed and insulin gtt turned off.
[2023-08-09] MEDS: DEXTROSE 50% 50ML SYRINGE (CRASH CART) 25 ML IVP (23:58)
[2023-08-10] VITALS (15 sets, daily range): BP systolic 133–156; BP diastolic 71–94; PULSE 70–112; RESP 10–20; TEMP 36.5–37.1; O2SAT 96–99; BMI 18.8
[2023-08-10 00:48] LABS: Chloride 107 mmol/L (98-107); Potassium 3.7 mmoL/L (3.5-5.1); Sodium 138 mmol/L (136-145)
[2023-08-10 00:51] LABS: Anion Gap 7.7 mEq/L (5-15); Blood Urea Nitrogen 22 mg/dl (9-20); Calcium 7.2 mg/dl (8.4-10.2); Carbon Dioxide 27 mmol/L (22.0-30.0); Creatinine Clearance Estimated 92 mL/min (50-200); Estimated Glomerular Filt Rate 87 ml/min (>60); GFR (African American) 105 ML/MIN (>60); Glucose 102 mg/dl (74-100)
[2023-08-10] MEDS: MORPHINE 2MG/ML SYRINGE 2 MG IV ×2 (02:05→06:19)
[2023-08-10] MEDS: 0.9% NaCl w/40mEq KCL 1,000 ML 100 ML IV ×2 (03:04→15:25)
[2023-08-10 03:23] LABS: POC Glucose,Bedside 113 (70-110)
[2023-08-10 03:23] LABS: POC Glucose,Bedside 106 (70-110)
[2023-08-10 03:23] LABS: POC Glucose,Bedside 153 (70-110)
[2023-08-10 03:23] LABS: POC Glucose,Bedside 180 (70-110)
[2023-08-10 03:23] LABS: POC Glucose,Bedside 79 (70-110)
[2023-08-10 03:23] LABS: POC Glucose,Bedside 95 (70-110)
[2023-08-10 03:23] LABS: POC Glucose,Bedside 53 (70-110)
[2023-08-10] MEDS: ONDANSETRON 4MG/2ML VIAL 4 MG IV ×3 (04:21→21:17)
--- NOTE | 2023-08-10 04:40 | PC.NURSE ---
Patient had an overall uneventful night. Did require round the clock zofran and morphine PRN per patient request. SR/ST, gets up to 120-130s at times when trying to urinate or vomit. VSS. Voids via urinal. Complaining of 9-10/10 abdominal pain. Slept on and off. Insulin gtt turned off and transitioned to sliding scale. Encouraged to go to CT this morning and said that he will if he gets his Morphine before. Significant other at bedside entire night.
[2023-08-10] MEDS: humaLOG 100 UNITS/ML 3ML VIAL (SSI) SQ ×2 (05:03→13:02)
[2023-08-10 05:05] LABS: POC Glucose,Bedside 182 (70-110)
--- NOTE | 2023-08-10 06:13 | PC.NURSE ---
Pt now med surg status per Ryan Brandon APRN
--- NOTE | 2023-08-10 07:00 | CT_ITS ---
PROCEDURE INFORMATION: Exam: CT Abdomen And Pelvis Without Contrast Exam date and time: 08/10/2023 10:34 AM Age: 32 years old Clinical indication: Abdominal pain; Additional info: Abd pain TECHNIQUE: Imaging protocol: Computed tomography of the abdomen and pelvis without contrast. Radiation optimization: All CT scans at this facility use at least one of these dose optimization techniques: automated exposure control; mA and/or kV adjustment per patient size (includes targeted exams where dose is matched to clinical indication); or iterative reconstruction. COMPARISON: CT ABDOMEN PELVIS WO CON 01/12/2023 9:17 PM FINDINGS: Limitations: The absence of intravenous contrast limits the assessment of vascular structures, lesions and lymphadenopathy. Lungs: Lung bases are unremarkable. Liver: No focal hepatic lesions within the limits of noncontrast examination. Gallbladder and bile ducts: Hyperattenuating material in the gallbladder favored to represent sludge. Pancreas: No peripancreatic fluid stranding. No main pancreatic ductal dilation. Spleen: No splenomegaly. Adrenal glands: The adrenal glands are normal. Kidneys and ureters: No nephrolithiasis or hydroureteronephrosis on either side. There is a proteinaceous/hemorrhagic cyst in the left kidney measuring 1.5 cm Stomach and bowel: No bowel wall thickening or distention. Appendix: There has been an appendectomy. Intraperitoneal space: There is no evidence of free intraperitoneal or pelvic fluid. Vasculature: Unremarkable. No abdominal aortic aneurysm. Lymph nodes: No lymphadenopathy. Urinary bladder: Urinary bladder is unremarkable. Reproductive: Unremarkable as visualized. Bones/joints: Unremarkable. No acute fracture. Soft tissues: Unremarkable. IMPRESSION: 1. Hyperattenuating material in the gallbladder favored to represent sludge. 2. 1.5 cm proteinaceous/hemorrhagic cyst. Benign Bosniak II renal cyst requiring no follow-up. (Reference: Kj) COMMENTS: Consistent with the [employer]'s Incidental Findings Committee white paper (J Am Isaías Radiol 2018): Any incidental renal lesion less than 1 cm or classified as too small to characterize, or any incidental cystic renal lesion characterized as simple-appearing, is likely benign. No follow-up imaging is recommended for these lesions per consensus recommendations based on imaging criteria. REFERENCES: Kj GUERRA et al. Bosniak Classification of Cystic Renal Masses, Version 2019: An Update Proposal and Needs Assessment. Radiology. 2019;292(2):475-488.
[2023-08-10 07:05] LABS: Basophils % 0.1 % (0.1-2.0); Eosinophils % 0.2 % (0.1-12.0); Hematocrit 41.2 % (42.0-52.0); Lymphocytes # 1.9 K/mm3 (0.7-4.5); Lymphocytes % 13.9 % (10-50); Mean Corpuscular HGB Conc 34.3 g/dL (31.8-35.4); Mean Corpuscular Hemoglobin 29.9 pg (27.0-31.2); Mean Corpuscular Volume 87.2 fl (80-94); Mean Platelet Volume 8.6 fl (7.4-10.4); Monocytes # 0.5 K/mm3 (0.1-1.0); Monocytes % 3.5 % (1.7-9.3); Neutrophils # 11.3 K/mm3 (1.8-7.8); Neutrophils % 82.3 % (37.0-80.0); Platelet Count 244 K/mm3 (142-424); Red Blood Count 4.73 M/mm3 (4.60-6.20); Red Cell Distribution Width 13.1 % (11.5-17.5); White Blood Count 13.7 K/mm3 (4.8-10.8)
[2023-08-10 07:13] LABS: Anion Gap 17.2 mEq/L (5-15); Blood Urea Nitrogen 21 mg/dl (9-20); Calcium 8.3 mg/dl (8.4-10.2); Carbon Dioxide 24 mmol/L (22.0-30.0); Chloride 104 mmol/L (98-107); Creatinine Clearance Estimated 86 mL/min (50-200); Estimated Glomerular Filt Rate 78 ml/min (>60); GFR (African American) 94 ML/MIN (>60); Glucose 162 mg/dl (74-100); Potassium 4.2 mmoL/L (3.5-5.1); Sodium 141 mmol/L (136-145)
--- NOTE | 2023-08-10 07:13 | HMH.ITSTN ---
CHECKED WITH NURSE QUINTANILLA, PT REFUSED TO COME DOWN AGAIN. WILL CHECK AGAIN LATER.
[2023-08-10 07:17] LABS: Hemoglobin 14.1 g/dL (14.1-18.0)
[2023-08-10] MEDS: LACTATED RINGERS 1000ML 1,000 ML 999 ML IV (09:49)
[2023-08-10] MEDS: DICYCLOMINE 20 MG/2ML VIAL 10 MG IM (09:49)
[2023-08-10] MEDS: HYDROMORPHONE 2MG/ML SYRINGE 1 MG IV (09:53)
--- NOTE | 2023-08-10 10:03 | HMH.PHAINT1 ---
Pharmacy Intervention Comments: MEDICATION RECONCILIATION COMPLETE USING LIST FROM MOST RECENT HOSPITAL DISCHARGE AND EXTERNAL PHARMACY FILL HISTORY.
[2023-08-10] MEDS: INSULIN GLARGINE 100 UNITS/ML 3ML FLEXPEN 22 UNIT SQ (10:49)
[2023-08-10 12:11] LABS: POC Glucose,Bedside 154 (70-110)
[2023-08-10] MEDS: KETOROLAC 30MG/ML VIAL 30 MG IV ×2 (15:10→21:17)
--- NOTE | 2023-08-10 16:47 | EXP.PN ---
Subjective *Date: 08/10/23 *Time: 16:47 Interval history: seen ay bedside, complains of Nausea, vomiting, not able to tolerate diet, not much improvement Exam Data for Last 24 hours Vital signs and Labs for Last 24 Hours: Temp Pulse Resp BP Pulse Ox O2 Del Method 97.9 F 84 18 156/88 H 98 Room Air 08/10/23 15:15 08/10/23 15:15 08/10/23 15:15 08/10/23 15:15 08/10/23 15:15 08/10/23 15:17 Laboratory Results - last 24 hr 08/09/23 17:20: Sodium 138, Potassium 3.3 L D, Chloride 99, Carbon Dioxide 18 L, Anion Gap 24.3 H, BUN 30 H, Creatinine 1.20, Estimated Creat Clear 77, Estimated GFR 70, Est GFR ( Amer) 85, Glucose 310 H D, Random Glucose 310 H, Calcium 8.4 08/09/23 17:44: POC Glucose 274 H 08/09/23 20:01: POC Glucose 180 H 08/09/23 20:50: Sodium 137, Potassium 3.2 L, Chloride 104, Carbon Dioxide 25, Anion Gap 11.2, BUN 26 H, Creatinine 1.00, Estimated Creat Clear 92, Estimated GFR 87, Est GFR ( Amer) 105 D, Glucose 176 H D, Calcium 7.3 L 08/09/23 20:53: POC Glucose 153 H 08/09/23 21:57: POC Glucose 113 H 08/09/23 22:56: POC Glucose 79 08/09/23 23:52: POC Glucose 53 L 08/10/23 00:40: Sodium 138, Potassium 3.7, Chloride 107, Carbon Dioxide 27, Anion Gap 7.7, BUN 22 H, Creatinine 1.00, Estimated Creat Clear 92, Estimated GFR 87, Est GFR ( Amer) 105, Glucose 102 H D, Calcium 7.2 L 08/10/23 00:52: POC Glucose 95 08/10/23 01:58: POC Glucose 106 08/10/23 04:56: POC Glucose 182 H 08/10/23 06:51: WBC 13.7 H, RBC 4.73, Hgb 14.1 D, Hct 41.2 L, MCV 87.2, MCH 29.9, MCHC 34.3, RDW 13.1, Plt Count 244, MPV 8.6, Neut % (Auto) 82.3 H, Lymph % (Auto) 13.9, [place] % (Auto) 3.5, Eos % (Auto) 0.2, Baso % (Auto) 0.1, Neut # (Auto) 11.3 H, Lymph # (Auto) 1.9, [place] # (Auto) 0.5, Eos # (Auto) 0.0, Baso # (Auto) 0.0, Sodium 141, Potassium 4.2, Chloride 104, Carbon Dioxide 24, Anion Gap 17.2 H, BUN 21 H, Creatinine 1.10, Estimated Creat Clear 86, Estimated GFR 78, Est GFR ( Amer) 94, Glucose 162 H D, Calcium 8.3 L 08/10/23 12:05: POC Glucose 154 H I & O for Last 24 hours: Intake & Output 08/07/23 08/08/23 08/09/23 08/10/23 23:59 23:59 23:59 23:59 Intake Total 1832.652 / 4176.324 6924 / 2623 Output Total 400 / 400 2400 / 2400 Balance 1432.652 / 1432.652 223 / 223 Weight 61.348 kg 63 kg Constitutional Constitutional: no acute distress *Routine HEENT Exam Head: Present normocephalic Eye: Present EOMI and PERRL ENT: Present mucous membranes moist *Routine Neck Exam Neck: Present supple; Absent lymphadenopathy *Routine Respiratory Exam Respiratory: Present CTA bilaterally *Routine Cardiovascular Exam Cardiovascular: Present RRR *Routine Abdominal Exam Abdominal: Present soft, normoactive bowel sounds and tenderness *Routine Extremities Exam Extremities: Absent cyanosis, clubbing or edema *Routine Skin Exam Skin: Present warm; Absent rash *Routine Neurological Exam Neurological: Present alert and oriented X3 Assessment and Plan *Assessment and plan (1) DKA, type 1: Status: Acute Category: Medical Code(s): E10.10 - Type 1 diabetes mellitus with ketoacidosis without coma (2) Leukocytosis: Status: Acute Category: Medical Code(s): D72.829 - Elevated white blood cell count, unspecified (3) Nausea and vomiting: Status: Acute Category: Medical Code(s): R11.2 - Nausea with vomiting, unspecified Plan Patient is a patient is a 32-year-old male with past medical history of diabetes mellitus who presented to hospital due to nausea vomiting abdominal pain. Patient was recently discharged from the hospital after feeling well. Patient mentions he has not been able to hold on the food. He otherwise denied fever chills diarrhea constipation dysuria. He mentions his abdominal pain is generalized, 10/10 in intensity, it feels like DKA. He has previous episodes of DKA as well. Assessment Diabetic ketoacidosis Leukocytosis likely reactive Hypoglycemia Intractable nausea vomiting abdominal pain likely secondary to DKA Plan continue aggressive IV fluid therapy recheck BMP Frequent glucose checks Monitor and replace electrolytes Pain control As needed Zofran DVT prophylaxis-Lovenox advance diet as tolerated
[2023-08-10 17:12] LABS: POC Glucose,Bedside 100 (70-110)
[2023-08-10 17:28] LABS: Chloride 102 mmol/L (98-107)
[2023-08-10 17:29] LABS: Potassium 3.8 mmoL/L (3.5-5.1); Sodium 138 mmol/L (136-145)
[2023-08-10 17:31] LABS: Blood Urea Nitrogen 16 mg/dl (9-20); Creatinine Clearance Estimated 95 mL/min (50-200); Estimated Glomerular Filt Rate 87 ml/min (>60); GFR (African American) 105 ML/MIN (>60)
[2023-08-10 17:32] LABS: Anion Gap 12.8 mEq/L (5-15); Calcium 7.9 mg/dl (8.4-10.2); Carbon Dioxide 27 mmol/L (22.0-30.0); Glucose 112 mg/dl (74-100)
[2023-08-10] MEDS: PROMETHAZINE HCL 25MG/ML 1ML VIAL 12.5 MG IV ×2 (20:05→23:59)
[2023-08-10] MEDS: SODIUM CHLORIDE 0.9% 25ML BAG 25 ML IV ×2 (20:05→23:59)
[2023-08-10 20:22] LABS: POC Glucose,Bedside 93 (70-110)
[2023-08-10] MEDS: INSULIN GLARGINE 100 UNITS/ML 10ML VIAL 12 UNIT SQ (20:29)
[2023-08-10 23:37] LABS: POC Glucose,Bedside 50 (70-110)
[2023-08-11] VITALS: BP 155/81; PULSE 85; PULSE 88; RESP 16; TEMP 36.6; O2SAT 100
[2023-08-11 00:10] LABS: POC Glucose,Bedside 63 (70-110)
[2023-08-11 01:00] LABS: POC Glucose,Bedside 129 (70-110)
[2023-08-11] MEDS: 0.9% NaCl w/40mEq KCL 1,000 ML 100 ML IV (01:25)
[2023-08-11 04:00] VITALS: BP 160/77; PULSE 77; PULSE 83; RESP 16; TEMP 36.6; O2SAT 100; BMI 19.3
[2023-08-11] MEDS: KETOROLAC 30MG/ML VIAL 30 MG IV (05:23)
[2023-08-11] MEDS: PROMETHAZINE HCL 25MG/ML 1ML VIAL 12.5 MG IV (05:24)
[2023-08-11] MEDS: SODIUM CHLORIDE 0.9% 25ML BAG 25 ML IV (05:24)
--- NOTE | 2023-08-11 05:29 | PC.NURSE ---
Patient has had a decent night. Gave a dose of phenergan and patient was finally able to tolerate liquids. Rechecked sugar at midnight to find it at 50. Gave 2 things of juice and broth. On recheck it was 63. Patient stated he couldn't drink anymore Patient said to recheck in 1 hr that he didn't feel like he was low like he normally does. RN rechecked in an hour patient was 123. As the night has progressed with more doses of nausea medication patient has been able to tolerate more liquids and even some jello. Patient has been up to the bedside x2 for a BM. Patient still states ABD pain is an 8. Patient states he wants to try to eat breakfast this morning so he can go home. No other issues noted
[2023-08-11 05:33] LABS: POC Glucose,Bedside 118 (70-110)
[2023-08-11 07:49] VITALS: BP 155/93; PULSE 87; RESP 18; TEMP 36.6; O2SAT 98
[2023-08-11 08:00] VITALS: PULSE 90
--- NOTE | 2023-08-11 08:49 | PC.NURSE ---
pt has been able to tolerate all PO intake well. He has had multiple servings of soup, snider and sausage. Tolerated juice well last night per reports. He denies any abdominal pain and has had no episodes of nausea or vomiting. He is requesting to go home today.
[2023-08-11 08:51] LABS: Basophils % 0.3 % (0.1-2.0); Eosinophils # 0.4 K/mm3 (0.0-0.4); Hematocrit 38.5 % (42.0-52.0); Hemoglobin 13.4 g/dL (14.1-18.0); Lymphocytes # 3.6 K/mm3 (0.7-4.5); Lymphocytes % 29.1 % (10-50); Mean Corpuscular HGB Conc 34.8 g/dL (31.8-35.4); Mean Corpuscular Hemoglobin 29.4 pg (27.0-31.2); Mean Corpuscular Volume 84.5 fl (80-94); Mean Platelet Volume 8.1 fl (7.4-10.4); Monocytes # 0.8 K/mm3 (0.1-1.0); Monocytes % 6.7 % (1.7-9.3); Neutrophils # 7.6 K/mm3 (1.8-7.8); Platelet Count 225 K/mm3 (142-424); Red Blood Count 4.55 M/mm3 (4.60-6.20); Red Cell Distribution Width 12.9 % (11.5-17.5); White Blood Count 12.5 K/mm3 (4.8-10.8)
[2023-08-11 08:54] LABS: Potassium 3.1 mmoL/L (3.5-5.1)
[2023-08-11 08:57] LABS: Anion Gap 7.1 mEq/L (5-15); Blood Urea Nitrogen 9 mg/dl (9-20); Calcium 7.9 mg/dl (8.4-10.2); Carbon Dioxide 30 mmol/L (22.0-30.0); Chloride 97 mmol/L (98-107); Creatinine Clearance Estimated 121 mL/min (50-200); Estimated Glomerular Filt Rate 112 ml/min (>60); GFR (African American) 136 ML/MIN (>60); Glucose 214 mg/dl (74-100); Sodium 131 mmol/L (136-145)
--- NOTE | 2023-08-11 10:51 | P.DS_ITS ---
General Admission date:: 08/09/23 Discharge date: 08/11/23 HPI HPI HPI: Patient is a patient is a 32-year-old male with past medical history of diabetes mellitus who presented to hospital due to nausea vomiting abdominal pain. Patient was recently discharged from the hospital after feeling well. Patient mentions he has not been able to hold on the food. He otherwise denied fever chills diarrhea constipation dysuria. He mentions his abdominal pain is generalized, 10/10 in intensity, it feels like DKA. He has previous episodes of DKA as well. Hospital Course Hospital Course Hospital Course: Patient was seen and evaluated at the bedside on the day of discharge. Patient is stable for discharge. Patient wishes to be discharged. All patient questions were answered and patient was given time to ask questions. Patient was discharged in stable condition. Patient understands that she can return to ER in case of any sudden changes in health. Total time spent on DC - 38 mins Patient is a patient is a 32-year-old male with past medical history of diabetes mellitus who presented to hospital due to nausea vomiting abdominal pain. Patient was recently discharged from the hospital after feeling well. Patient mentions he has not been able to hold on the food. He otherwise denied fever chills diarrhea constipation dysuria. He mentions his abdominal pain is generalized, 10/10 in intensity, it feels like DKA. He has previous episodes of DKA as well. Assessment Diabetic ketoacidosis - resolved Leukocytosis likely reactive - improved Hypoglycemia - stable Intractable nausea vomiting abdominal pain likely secondary to DKA - improved Patient mentions he is tolerating diet, he is dressed up in his regular clothes and requesting to be discharged, he mentions he is 'feeling great and back to his normal and would like to be discharged Exam Data for Last 24 hours Vital signs and Labs for Last 24 Hours: Temp Pulse Resp BP Pulse Ox O2 Del Method 97.9 F 87 18 155/93 H 98 Room Air 08/11/23 07:49 08/11/23 07:49 08/11/23 07:49 08/11/23 07:49 08/11/23 07:49 08/11/23 09:00 Laboratory Results - last 24 hr 08/09/23 14:05: Serum Osmolality 309 H 08/10/23 12:05: POC Glucose 154 H 08/10/23 17:05: POC Glucose 100 08/10/23 17:10: Sodium 138, Potassium 3.8, Chloride 102, Carbon Dioxide 27, Anion Gap 12.8, BUN 16, Creatinine 1.00, Estimated Creat Clear 95, Estimated GFR 87, Est GFR ( Amer) 105, Glucose 112 H D, Calcium 7.9 L 08/10/23 20:11: POC Glucose 93 08/10/23 23:27: POC Glucose 50 L 08/11/23 00:02: POC Glucose 63 L 08/11/23 00:50: POC Glucose 129 H 08/11/23 05:19: POC Glucose 118 H 08/11/23 08:25: WBC 12.5 H, RBC 4.55 L, Hgb 13.4 L, Hct 38.5 L, MCV 84.5, MCH 29.4, MCHC 34.8, RDW 12.9, Plt Count 225, MPV 8.1, Neut % (Auto) 61.0, Lymph % (Auto) 29.1, [place] % (Auto) 6.7, Eos % (Auto) 3.0, Baso % (Auto) 0.3, Neut # (Auto) 7.6, Lymph # (Auto) 3.6, [place] # (Auto) 0.8, Eos # (Auto) 0.4, Baso # (Auto) 0.0, Sodium 131 L, Potassium 3.1 L, Chloride 97 L, Carbon Dioxide 30, Anion Gap 7.1, BUN 9 D, Creatinine 0.80, Estimated Creat Clear 121, Estimated GFR 112, Est GFR ( Amer) 136 D, Glucose 214 H D, Calcium 7.9 L I & O for Last 24 hours: Intake & Output 08/08/23 08/09/23 08/10/23 08/11/23 23:59 23:59 23:59 23:59 Intake Total 1832.652 / 3284.947 6343 / 2623 Output Total 400 / 400 2400 / 3200 1500 / 1500 Balance 1432.652 / 1432.652 223 / -577 -1500 / -1500 Weight 61.348 kg 63 kg 64.682 kg Constitutional Constitutional: no acute distress *Routine HEENT Exam Head: Present normocephalic Eye: Present EOMI and PERRL ENT: Present mucous membranes moist *Routine Neck Exam Neck: Present supple; Absent lymphadenopathy *Routine Respiratory Exam Respiratory: Present CTA bilaterally *Routine Cardiovascular Exam Cardiovascular: Present RRR *Routine Abdominal Exam Abdominal: Present soft and normoactive bowel sounds; Absent tenderness *Routine Extremities Exam Extremities: Absent cyanosis, clubbing or edema *Routine Skin Exam Skin: Present warm; Absent rash *Routine Neurological Exam Neurological: Present alert and oriented X3 Results Data Completed and Pending Labs on day of discharge: Labs from last 24 hours 08/11/23 08/11/23 08/11/23 08:25 05:19 00:50 WBC 12.5 H RBC 4.55 L Hgb 13.4 L Hct 38.5 L MCV 84.5 MCH 29.4 MCHC 34.8 RDW 12.9 Plt Count 225 MPV 8.1 Neut % (Auto) 61.0 Lymph % (Auto) 29.1 [place] % (Auto) 6.7 Eos % (Auto) 3.0 Baso % (Auto) 0.3 Neut # (Auto) 7.6 Lymph # (Auto) 3.6 [place] # (Auto) 0.8 Eos # (Auto) 0.4 Baso # (Auto) 0.0 Sodium 131 L Potassium 3.1 L Chloride 97 L Carbon Dioxide 30 Anion Gap 7.1 BUN 9 D Creatinine 0.80 Estimated Creat Clear 121 Estimated GFR 112 Est GFR ( Amer) 136 D Glucose 214 H D POC Glucose 118 H 129 H Serum Osmolality Calcium 7.9 L 08/11/23 08/10/23 08/10/23 00:02 23:27 20:11 WBC RBC Hgb Hct MCV MCH MCHC RDW Plt Count MPV Neut % (Auto) Lymph % (Auto) [place] % (Auto) Eos % (Auto) Baso % (Auto) Neut # (Auto) Lymph # (Auto) [place] # (Auto) Eos # (Auto) Baso # (Auto) Sodium Potassium Chloride Carbon Dioxide Anion Gap BUN Creatinine Estimated Creat Clear Estimated GFR Est GFR ( Amer) Glucose POC Glucose 63 L 50 L 93 Serum Osmolality Calcium 08/10/23 08/10/23 08/10/23 17:10 17:05 12:05 WBC RBC Hgb Hct MCV MCH MCHC RDW Plt Count MPV Neut % (Auto) Lymph % (Auto) [place] % (Auto) Eos % (Auto) Baso % (Auto) Neut # (Auto) Lymph # (Auto) [place] # (Auto) Eos # (Auto) Baso # (Auto) Sodium 138 Potassium 3.8 Chloride 102 Carbon Dioxide 27 Anion Gap 12.8 BUN 16 Creatinine 1.00 Estimated Creat Clear 95 Estimated GFR 87 Est GFR ( Amer) 105 Glucose 112 H D POC Glucose 100 154 H Serum Osmolality Calcium 7.9 L 08/09/23 14:05 WBC RBC Hgb Hct MCV MCH MCHC RDW Plt Count MPV Neut % (Auto) Lymph % (Auto) [place] % (Auto) Eos % (Auto) Baso % (Auto) Neut # (Auto) Lymph # (Auto) [place] # (Auto) Eos # (Auto) Baso # (Auto) Sodium Potassium Chloride Carbon Dioxide Anion Gap BUN Creatinine Estimated Creat Clear Estimated GFR Est GFR ( Amer) Glucose POC Glucose Serum Osmolality 309 H Calcium DS: Diagnosis Discharge Diagnosis (1) DKA, type 1: Status: Acute Code(s): E10.10 - Type 1 diabetes mellitus with ketoacidosis without coma (2) Leukocytosis: Status: Acute Code(s): D72.829 - Elevated white blood cell count, unspecified (3) Nausea and vomiting: Status: Acute Code(s): R11.2 - Nausea with vomiting, unspecified Meds Home Medications and Allergies Home Medications Medication Instructions Recorded Confirmed Type insulin glargine 100 unit/mL 20 unit (0.2 mL) SQ BID Diabetes 04/24/23 08/09/23 Rx subcutaneous solution (Lantus 30 days #12 mL U-100 Insulin) insulin regular human 100 unit/mL 10 - 15 unit (0.1 - 0.15 mL) SQ 04/24/23 08/09/23 Rx injection solution QID Diabetes 30 days #10 mL gabapentin 300 mg capsule 300 mg PO BID Pain 08/05/23 08/09/23 History gabapentin 300 mg capsule 600 mg PO HS Pain 08/05/23 08/09/23 History dicyclomine 10 mg capsule 10 mg PO TIDP PRN Cramping 5 days 08/08/23 08/09/23 Rx #15 caps omeprazole 40 mg capsule,delayed 40 mg PO BID Acid Reflux 08/10/23 08/09/23 History release sucralfate 100 mg/mL oral 1 g PO ACHS Acid Reflux 08/10/23 08/09/23 History suspension New Prescriptions to Start Prescriptions: Allergies Allergy/AdvReac Type Severity Reaction Status Date / Time metoclopramide AdvReac Anxiety Verified 08/09/23 16:24 Discharge Plan Disposition Patient Disposition: Home, Self-Care Condition: Good Discharge Order Discharge Orders: Discharge Order (Routine); Ordered 08/11/23 Ordered By: Sydney Rivera Follow up Plan Follow up with: Provider,Referral, MD [Primary Care Provider] - 2 weeks Prescriptions/Medication Reconciliation: Continued insulin glargine [Lantus U-100 Insulin] 100 unit/mL solution 20 unit SQ BID 30 Days Qty: 12 4RF insulin regular human 100 unit/mL solution 10 - 15 unit SQ QID 30 Days Qty: 10 4RF gabapentin 300 mg capsule 300 mg PO BID Patient Comments: TAKE 1 CAPSULE BY MOUTH IN THE MORNING AND 1 IN THE AFTERNOON AND 2 AT BEDTIME Rx Instructions: Take one capsule in the morning, and one capsule in the afternoon gabapentin 300 mg capsule 600 mg PO HS dicyclomine 10 mg Capsule 10 mg PO TIDP PRN (Reason: Cramping) 5 Days Qty: 15 0RF sucralfate 100 mg/mL suspension 1 g PO ACHS omeprazole 40 mg capsule,delayed release(DR/EC) 40 mg PO BID Problem Reconciliation Problems Reviewed?: Yes Patient Discharge Instructions ACTIVITY: Ambulate as tolerated DIET: advance to your usual diet Patient Instructions: Diabetic Ketoacidosis Providers Primary Care Provider: Provider,Referral Admit Provider: Sydney Rivera Attending Provider: Sydney Rivera
[2023-08-11] MEDS: POTASSIUM CHLORIDE 20MEQ TAB 40 MEQ PO (11:30)
--- NOTE | 2023-08-13 13:23 | CARE MANAGER ---
Contacted patient related to hospital discharge. He states he feels better but is afraid he has pneumonia and is going to the doctor today. He denies questions or concerns. DENICE Green
== END 2023-08-11 11:40 | disposition home or self-care (01) ==
LOC: ER 14:32 → 2ND 16:31
PROVIDERS: Admitting Provider Internal Medicine; Emergency Provider Emergency Medicine; Visit Provider Internal Medicine
DX: E10.10 Type 1 diabetes mellitus with ketoacidosis without coma (principal); Z79.4 Long term (current) use of insulin
CPT/HCPCS: 36415; 74176; 80048; 80053; 82009; 82803; 82947; 82962; 83735; 83930; 84100; 85025; 93005; 99285; G0378; J2405

== ENCOUNTER 2023-09-04 21:48 | Outpatient (CLI) | payer BC, SELFPAY ==
[2023-09-04 20:56] LABS: Chol/HDL Ratio 3.4 (1-3.5); Cholesterol 168 mg/dl (140-200); HDL Cholesterol 49 mg/dl (40-60); Triglycerides 110 mg/dl (30-150); VLDL Cholesterol 22 mg/dL (0-40)
[2023-09-04 21:07] LABS: Direct LDL Cholesterol 86.08 mg/dL (100-129)
== END 2023-09-04 23:59 ==
LOC: LAB.DROPOF 21:48
PROVIDERS: PCP Internal Medicine; Visit Provider Internal Medicine
DX: R73.09 Other abnormal glucose (principal); G62.9 Polyneuropathy, unspecified; Z79.4 Long term (current) use of insulin
CPT/HCPCS: 80061; 83036

== ENCOUNTER 2024-05-23 19:18 | Emergency (ER) | payer BC, SELFPAY ==
[2024-05-23] VITALS (9 sets, daily range): BP systolic 108–132; BP diastolic 59–95; PULSE 93–128; RESP 14–24; TEMP 36.8–37.7; O2SAT 95–99; BMI 20.3
--- NOTE | 2024-05-23 19:32 | ECG_ITS ---
APPROVED REPORT Exam: Resting ECG HR:112 bpm ECG Measurements Heart Rate 112 AXES TX 124 P 88 QRSd 86 QRS 74 QT 318 T 67 QTc 385 Conclusion SINUS TACHYCARDIA NONSPECIFIC T-WAVE ABNORMALITY ABNORMAL RHYTHM ECG UNCONFIRMED REPORT Electronically signed by : Ubaldo Dumas, 05/23/2024 23:21:40
--- NOTE | 2024-05-23 19:33 | XR_ITS ---
PROCEDURE INFORMATION: Exam: XR Chest Exam date and time: 05/23/2024 7:33 PM Age: 33 years old Clinical indication: Dyspnea TECHNIQUE: Imaging protocol: Radiologic exam of the chest. Views: 1 view. COMPARISON: CR XR CHEST PORTABLE 01/12/2023 10:47 PM FINDINGS: Lungs: Stable thin-walled cavitary lesion in the lateral left mid lung measuring 26 mm. Lungs otherwise clear. Pleural spaces: Unremarkable. No pleural effusion. No pneumothorax. Heart/Mediastinum: Unremarkable. No cardiomegaly. Bones/joints: Unremarkable. IMPRESSION: Stable chest x-ray with no acute disease. Stable cavitary lesion on the left.
[2024-05-23 19:39] LABS: Basophils # 0.1 K/mm3 (0-0.2); Basophils % 0.4 % (0.1-2.0); Eosinophils % 0.2 % (0.1-12.0); Hematocrit 43.7 % (42.0-52.0); Hemoglobin 15.6 g/dL (14.1-18.0); Lymphocytes # 1.2 K/mm3 (0.7-4.5); Lymphocytes % 8.4 % (10-50); Mean Corpuscular HGB Conc 35.7 g/dL (31.8-35.4); Mean Corpuscular Hemoglobin 29.6 pg (27.0-31.2); Mean Corpuscular Volume 82.9 fl (80-94); Mean Platelet Volume 8.5 fl (7.4-10.4); Monocytes # 0.7 K/mm3 (0.1-1.0); Monocytes % 4.9 % (1.7-9.3); Neutrophils # 12.5 K/mm3 (1.8-7.8); Neutrophils % 86.1 % (37.0-80.0); Platelet Count 266 K/mm3 (142-424); Red Blood Count 5.27 M/mm3 (4.60-6.20); Red Cell Distribution Width 13.2 % (11.5-17.5); White Blood Count 14.5 K/mm3 (4.8-10.8)
[2024-05-23 19:43] LABS: MANUAL DIFFERENTIAL MANUAL DIFFERENTIAL (MANUAL DIFF)
--- NOTE | 2024-05-23 19:44 | HMH.EDGENADL ---
Discharge Plan Disposition Patient Disposition: Home, Self-Care Prescriptions Prescriptions: New promethazine 12.5 mg suppository 12.5 mg NV TID PRN (Reason: nausea and vomiting) Qty: 12 0RF Rx Instructions: do not give 3rd daily dose after evening meal or within 4hr before bed promethazine 25 mg tablet 25 mg PO TID PRN (Reason: nausea and vomiting) 5 Days Qty: 20 0RF ondansetron 4 mg tablet,disintegrating 4 mg PO Q6H PRN (Reason: nausea and vomiting) 5 Days Qty: 20 0RF No Action insulin regular human 100 unit/mL solution 10 - 15 unit SQ QID 30 Days Qty: 10 4RF gabapentin 300 mg capsule 300 mg PO BID 30 Days Qty: 60 1RF fluoxetine 10 mg capsule 10 mg PO DAILY Qty: 30 2RF (DME) True Metrix Glucose Test Strip Strip See Rx Instructions .Route Qty: 100 3RF Rx Instructions: Test up to 3x daily insulin glargine [Basaglar KwikPen U-100 Insulin] 100 unit/mL (3 mL) insulin pen 20 unit SQ BID Qty: 40 0RF sucralfate 100 mg/mL suspension 1 g PO ACHS omeprazole 40 mg capsule,delayed release(DR/EC) 40 mg PO BID Referrals Follow up/Referrals: Bautista Ann DO [Primary Care Provider] - See instructions Activity Restrictions/Add. Instructions Additional Instructions/Restrictions: Please follow-up within the next 2 to 3 days to have your kidney function rechecked by your primary care doctor and return with any significant worsening of your symptoms. Clinical Impressions Clinical Impression: Nausea & vomiting, Dehydration, moderate, ASA (acute kidney injury) Instructions Patient Instructions: DI for Diarrhea and Traveler's Diarrhea -- Adult, DI for Diarrhea and Traveler's Diarrhea -- Child, DI for Nausea -- Adult, DI for Nausea -- Child Print Language Print Language: Setswana Discharge ED Provider: Mignon Dumas General Adult HPI General Chief complaint: Nausea/Vomiting/Diarrhea Stated complaint: vomiting,body aches Time Seen by Provider: 05/23/24 19:25 Mode of Arrival: Wheelchair Source of Information: Patient and Significant Other Limitations: No Limitations Description of Symptoms (Recalled from ER Triage Doc. by RN): pt comes in complaining of generalized feeling unwell, pt stated he feels like hes dying . pt is complaining of nausea and vomitting as well as body aches. pt reports a similar episode previously when he was diagnosed with canaboid hyperemeisis. pt was seen in another ER last night without improvement History of Present Illness HPI narrative: 33-year-old male with a history of poorly controlled diabetes admissions in the past for DKA and history of chronic marijuana use and cyclical vomiting presents today with nausea vomiting x 2 days. States he has bodyaches and his fianc?e who is at the bedside states has had numerous similar presentations to his current presentation today. States he has aches and pains all over. Had Zofran at home without improvement. Has been unable to keep anything down for almost 48 hours. Related Data Home Medications ?Medication ?Instructions ?Recorded ?Confirmed omeprazole 40 mg capsule,delayed 40 mg PO BID Acid Reflux 08/10/23 01/27/24 release sucralfate 100 mg/mL oral 1 g PO ACHS Acid Reflux 08/10/23 01/27/24 suspension Previous Rx's ?Medication ?Instructions ?Recorded insulin regular human 100 unit/mL 10 - 15 unit (0.1 - 0.15 mL) SQ 09/04/23 injection solution QID Diabetes 30 days #10 mL blood sugar diagnostic (True #100 ea 09/05/23 Metrix Glucose Test Strip) fluoxetine 10 mg capsule 10 mg PO DAILY #30 caps 01/27/24 gabapentin 300 mg capsule 300 mg PO BID Pain 30 days #60 caps 01/27/24 insulin glargine 100 unit/mL (3 20 unit (0.2 mL) SQ BID Diabetes 03/16/24 mL) subcutaneous pen (Basaglar #40 mL KwikPen U-100 Insulin) ondansetron 4 mg disintegrating 4 mg PO Q6H PRN nausea and 05/23/24 tablet vomiting 5 days #20 tabs promethazine 12.5 mg rectal 12.5 mg NV TID PRN nausea and 05/23/24 suppository vomiting #12 ea promethazine 25 mg tablet 25 mg PO TID PRN nausea and 05/23/24 vomiting 5 days #20 tabs Allergies Allergy/AdvReac Type Severity Reaction Status Date / Time metoclopramide AdvReac Anxiety Verified 01/27/24 10:19 [facility] Disclaimer: The information contained in this section may have been updated after the patient was seen, as this information can be updated by other users. Medical History DKA, type 1 Mixed acid base balance disorder Leukocytosis Nausea and vomiting Tachycardia Acute dehydration Nausea vomiting and diarrhea Diabetic peripheral neuropathy associated with type 1 diabetes mellitus Sunny is taking gabapentin 300 mg twice a day with 600 mg at bedtime. This seems to be controlling his peripheral neuropathic pain. We will continue with this. Diabetes type 1, controlled HbA1c was 7.6 in April 2023. Will recheck it today. Would like to get it as low as possible obviously. Patient is also committed to this. Microalbuminuria I did discuss this case with an cigarette examiner. He stated he was happy to see this patient. Will discuss this with this patient when he returns in a month for follow-up. 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 This was 42.8 and within the normal range. He is to continue his current supplementation. Anemia Will check a CBC today. Addendum: CBC returns with a hemoglobin of 13.4. He is normocytic normochromic at this point. RDW's are within the normal range. Will consider sending him to hematology for evaluation. Cannabis hyperemesis syndrome concurrent with and due to cannabis dependence Cannabis hyperemesis syndrome concurrent with and due to cannabis abuse Long discussion with this patient about his cannabis use. He understands that the nausea and vomiting he was experience is probably related to that and is a cannabis hyperemesis syndrome. He states he has cut down and is only using it once a day. I made it clear to him that September 19 he has to be THC negative. Will certainly do a drug screen when he returns. Diabetic peripheral neuropathy Patient states that the gabapentin is working extremely well for his pain. Will continue that. Cannabis abuse Sunny states he wants to quit his cannabis us we will follow-up with him on this at his next visit and also do a urine screen. I strongly encouraged him to do this. We did not discuss this issue today as I am more concerned about his microalbuminuria. Gastritis Tobacco use Had a long discussion about putting smoking with this patient. I told him he definitely needs to quit as soon as possible. He understands realizes but states it is hard . Will keep working with him. He states he wants to get off the marijuana first and that certainly is reasonable. Anterior pleuritic pain Pneumonia Pneumonia with cavity of lung Vomiting Diabetes mellitus Vomiting alone Rib pain on right side Neuropathy DKA, type 1 Improving. Lower extremity weakness Possible recurrent/relapsing Guillain-Sampson?, transfer arrangements as noted Nonadherence to medication Dehydration Hyperglycemia Abscess of finger of right hand Abscess Surgical History History of appendectomy Family History Other Family history non-contributory No significant family history Social History Smoking Status: Former smoker alcohol intake: never substance use type: marijuana current occupational status: other Travel in the last 8 weeks: None household members: friend(s) housing: house current occupational exposures/hazards: No caffeine: No Other Medical History Have you received the Flu Vaccine for this season: No Have you received the Pneumonia Vaccine: No ROS Obtained: Yes All systems reviewed & no additional complaints except as documented Physical Exam General General appearance: in distress (Patient moaning in pain) ENT ENT exam: Present mucous membranes dry (Membranes very dry) Respiratory Respiratory exam: Present normal lung sounds bilaterally and respiratory distress Cardiovascular Cardiovascular exam: Present tachycardia (Heart rate 130 on my initial exam) Abdominal Exam Abdominal exam: Present soft and tenderness (Tenderness throughout but nonfocal) Neurological Exam Neurological exam: Present alert and oriented X3 Medical Decision Making Medical Records Screening: Per USPSTF and CDC recommendations, given the prevalence of disease in our region, it is our hospital?s policy to screen for HIV and viral Hepatitis for all patients aged 18 and over and those with ongoing risk factors. Chas Inquiry Pt receiving controlled substance: No Vital Signs: 05/23/24 19:33 05/23/24 20:00 Temperature 99.9 F H Temperature Source Rectal Pulse Rate 93 H Pulse Rate [Right] 128 H Respiratory Rate 20 Blood Pressure 122/70 Blood Pressure [Right Arm] 132/95 H Blood Pressure Mean [Right Arm] 107 02 Sat by Pulse Oximetry 99 98 Oxygen Delivery Method Room Air Lab Data Lab results reviewed: Yes I reviewed the patient's lab results. Lab Results 05/23/24 19:28: WBC 14.5 H, RBC 5.27, Hgb 15.6, Hct 43.7, MCV 82.9, MCH 29.6, MCHC 35.7 H, RDW 13.2, Plt Count 266, MPV 8.5, Neut % (Auto) 86.1 H, Lymph % (Auto) 8.4 L, [place] % (Auto) 4.9, Eos % (Auto) 0.2, Baso % (Auto) 0.4, Neut # (Auto) 12.5 H, Lymph # (Auto) 1.2, [place] # (Auto) 0.7, Eos # (Auto) 0.0, Baso # (Auto) 0.1, Total Counted 100, Neutrophils % (Manual) 86 H, Lymphocytes % (Manual) 8 L, Monocytes % (Manual) 6, Platelet Estimate Normal, RBC Morphology Normal, Sodium 141, Potassium 4.1, Chloride 105, Carbon Dioxide 24, Anion Gap 16.1 H, BUN 24 H, Creatinine 1.30 H, Estimated Creat Clear 78, Estimated GFR 64, Est GFR ( Amer) 77, Glucose 90, Lactate 1.3, Calcium 9.1, Phosphorus 2.7, Magnesium 1.9, Total Bilirubin 0.7, AST 35, ALT 33, Alkaline Phosphatase 96, Troponin I < 0.01, Total Protein 8.2, Albumin 4.7, Globulin 3.5 H, Albumin/Globulin Ratio 1.3 05/23/24 19:42: VBG pH 7.51 H, VBG pCO2 31.0 L, VBG pO2 45.5 H, VBG HCO3 24.3, VBG Total CO2 25.2, VBG O2 Saturation 88.3 H, VBG Base Excess 1.3, VBG Lactic Acid 1.9 05/23/24 19:43: VBG Lactic Acid 1.8 05/23/24 19:47: SARS-CoV-2 (PCR) Not detected, Influenza A Untype (PCR) Not detected, Influenza Type B (PCR) Not detected 05/23/24 19:57: Urine Color Yellow, Urine Appearance Clear, Urine pH 6.0, Ur Specific [place] >= 1.030, Urine Protein 2+ A, Urine Glucose (UA) 2+, Urine Ketones 2+, Urine Blood Trace-i, Urine Nitrate Negative, Urine Bilirubin 1+ A, Urine Urobilinogen 0.2, Ur Leukocyte Esterase Negative, Urine RBC 3-5, Urine WBC 3-5, Ur Squamous Epith Cells None, Urine Bacteria 1+, Urine Mucus 1+, Urine Sperm Occ 05/23/24 19:28 05/23/24 19:28 Orders (Tests/Meds): ED MEDICATIONS Discontinued Medications Generic Name Dose Route Start Last Admin Trade Name Aldoq PRN Reason Stop Dose Admin Lactated Ringer's 1,000 mls @ 999 mls/hr 05/23/24 19:45 05/23/24 19:54 Lactated Ringer's 1000 Ml Bag IV 05/23/24 20:45 999 mls/hr .Q1H1M LENA Administration Sodium Chloride 1,000 mls @ 999 mls/hr 05/23/24 21:00 05/23/24 21:53 Sod Chlor 0.9% 1000ml Bag IV 05/23/24 22:00 999 mls/hr .Q1H1M LENA Administration Ondansetron HCl 4 mg 05/23/24 19:32 05/23/24 19:54 Ondansetron 4mg/2ml Vial IV 05/23/24 19:33 4 mg ONCE ONE Administration ORDERS Category Date Time Status CXR --portable [XR chest portable] Stat Exams 05/23/24 19:33 Completed CBC w/Auto Diff [Complete Blood Count Auto Diff] Stat Lab 05/23/24 19:28 Completed CMP [Comprehensive Metabolic Panel] Stat Lab 05/23/24 19:28 Completed HIV (1&2) Antibody Rapid Stat Lab 05/23/24 19:28 Received Hep C Ab with Reflex to RNA Stat Lab 05/23/24 19:28 Received Lactate Venous Stat Lab 05/23/24 19:43 Completed Lactic Acid Routine Lab 05/23/24 19:28 Completed Magnesium Stat Lab 05/23/24 19:28 Completed Phosphorous Stat Lab 05/23/24 19:28 Completed Rapid PCR Covid and Flu A/B Stat Lab 05/23/24 19:47 Completed Trop I [Troponin I] Stat Lab 05/23/24 19:28 Completed Troponin I Q3H Lab 05/23/24 22:45 Ordered Troponin I Q3H Lab 05/24/24 01:45 Ordered UA [Urinalysis and Microscopic] Stat Lab 05/23/24 19:57 Completed Blood Culture Stat Micro 05/23/24 19:40 Received Venous Blood Gas Stat RT 05/23/24 19:42 Completed Medical Decision Narrative: 33-year-old with above history and physical. Differential includes cannabinoid hyperemesis, viral gastroenteritis, bowel obstruction or abdominal surgical pathology, DKA etc. Given his numerous presentations in the past that are similar to today we will hold off on any CT imaging get initial metabolic workup administer IV fluids and antiemetics. His last presentation required droperidol and Ativan which I anticipate to escalate to this time. Initially IV fluids and Zofran have been given and will reassess. Reassessment 858 patient feeling significantly better is resting comfortably no evidence of an infection on chest x-ray urinalysis. Patient has no other signs or symptoms of infectious etiology at the moment. No evidence of DKA. Does have mild acute kidney injury with a creatinine of 1.3 with a baseline of 0.8 likely secondary to dehydration. His heart rate is down to 115 on my assessment he asked for another liter of fluids which I think is reasonable he will closely follow-up outpatient assuming that his vital signs improved and that he is able to tolerate p.o. At this point I do not suspect sepsis or bacteremia while that remains on the differential will not pursue that further. His symptoms seem to be consistent with previous presentations of cannabinoid hyperemesis and dehydration. Reassessment 11:11 PM patient's heart rate has improved into the 90s after 2 L of IV fluids he has not thrown up anymore in the department. He is tolerating p.o. again no evidence of sepsis clinically. P.o. and suppository Phenergan in addition to Zofran have been prescribed in an effort to keep him out of the ED in the future. He was discharged improved stable condition. Critical Care Critical Care Time Critical Care Time: Yes Attestation: On 05/23/24, the high probability of a clinically significant, sudden or life threatening deterioration of the following system(s) required my full and direct attention, intervention and personal management. The time I documented below is in addition to time spent performing reported procedures but includes the following listed in this critical care notation. Total Time Total Critical Care Time: 35
[2024-05-23 19:47] LABS: Lactate Venous 1.9 mmol/L (0.4-2.0); VBG Base Excess 1.3 mmol/L (-2.4-2.3); VBG HCO3 24.3 mmol/L (23-30); VBG Oxygen Saturation 88.3 % (50-70); VBG PH 7.51 mmol/L (7.31-7.41); VBG PO2 45.5 mmol/L (28-40); VBG Total CO2 25.2 mmol/L (23-27)
[2024-05-23 19:48] LABS: Lactate Venous 1.8 mmol/L (0.4-2.0)
[2024-05-23] MEDS: LACTATED RINGERS 1000ML 1,000 ML 999 ML IV (19:54)
[2024-05-23] MEDS: ONDANSETRON 4MG/2ML VIAL 4 MG IV (19:54)
[2024-05-23 19:55] LABS: Coronavirus 19, PCR Not Detected (NotDetected); Influenza A, PCR Not Detected (NotDetected); Influenza B, PCR Not Detected (NotDetected)
[2024-05-23 19:58] LABS: Albumin Level 4.7 g/dl (3.5-5.0); Chloride 105 mmol/L (98-107); Sodium 141 mmol/L (136-145)
[2024-05-23 19:59] LABS: Potassium 4.1 mmoL/L (3.5-5.1)
[2024-05-23 20:01] LABS: Alanine Aminotransferase 33 U/L (12-78); Albumin/Globulin Ratio 1.3 (1.1-1.8); Alkaline Phosphatase 96 U/L (38-126); Anion Gap 16.1 mEq/L (5-15); Aspartate Amino Transferase 35 U/L (17-59); Bilirubin,Total 0.7 mg/dl (0.2-1.3); Blood Urea Nitrogen 24 mg/dl (9-20); Calcium 9.1 mg/dl (8.4-10.2); Carbon Dioxide 24 mmol/L (22.0-30.0); Creatinine Clearance Estimated 78 mL/min (50-200); Estimated Glomerular Filt Rate 64 ml/min (>60); GFR (African American) 77 ML/MIN (>60); Globulin 3.5 g/dL (1.3-3.2); Glucose 90 mg/dl (74-100); Total Protein,Serum 8.2 g/dl (6.3-8.2)
[2024-05-23 20:02] LABS: Magnesium 1.9 mg/dl (1.6-2.3); Phosphorous 2.7 mg/dl (2.5-4.5)
[2024-05-23 20:05] LABS: Microscopic, Urine URINE MICROSCOPIC (MICROSCOPIC)
[2024-05-23 20:06] LABS: Lymphocytes % 8 % (10-50); Monocytes % 6 % (2-9); Neutrophils % 86 % (42-76); Platelet Estimate Normal; RBC Morphology Normal; Total Cells Counted 100
[2024-05-23 20:09] LABS: Appearance,Urine CLEAR (Clear); Blood, Urine TRACE-I (Negative); Color,Urine YELLOW (Yellow); Glucose,Urine (UA) 2+ (Negative); Ketones,Urine 2+ (Negative); Leukocyte Esterase,Urine Negative (Negative); Nitrate,Urine Negative (Negative); Protein,Urine 2+ (Negative); Specific Gravity, Urine >= 1.030 (1.005-1.030); Urobilinogen,Urine 0.2 EU/dl (0.2)
[2024-05-23 20:15] LABS: Troponin I < 0.01 ng/ml (0.00-0.034)
[2024-05-23 20:21] LABS: Bilirubin,Urine 1+ (Negative)
[2024-05-23 20:27] LABS: Bacteria,Urine 1+ /lpf; Mucus,Urine 1+ /lpf; Sperm,Urine OCC /lpf
[2024-05-23 20:52] LABS: Lactic Acid 1.3 mmol/L (0.7-2.1)
[2024-05-23] MEDS: 0.9 % SODIUM CHLORIDE 1000ML 1,000 ML 999 ML IV (21:53)
[2024-05-24 00:54] LABS: HIV (1&2) Antibody Rapid NONREACTIVE (NONREACTIVE)
[2024-05-26 05:10] LABS: HCV Ab Non Reactive (Non Reactive)
== END 2024-05-23 23:16 | disposition home or self-care (01) ==
PROVIDERS: Emergency Provider Student in an Organized Health Care Education/Training Program; PCP Internal Medicine
DX: N17.9 Acute kidney failure, unspecified (principal); E86.0 Dehydration; R11.2 Nausea with vomiting, unspecified; M79.10 Myalgia, unspecified site
CPT/HCPCS: 71045; 80053; 81001; 82803; 83605; 83735; 84100; 84484; 85007; 85025; 85027; 86803; 87040; 87389; 87636; 93005; 96361; 96374; 99291; J2405; J7030; J7120

== ENCOUNTER 2024-08-20 17:54 | Emergency (ER) | payer SELFPAY ==
--- NOTE | 2024-08-20 18:20 | ED_ITS ---
Discharge Plan Disposition Patient Disposition: Home, Self-Care Condition: Good Prescriptions Prescriptions: New benzonatate 100 mg capsule 100 mg PO TIDP PRN (Reason: Cough) Qty: 30 0RF oseltamivir [Tamiflu] 75 mg capsule 75 mg PO BID 5 Days Qty: 10 0RF ondansetron 4 mg Tablet,Disintegrating 4 mg PO Q8H PRN (Reason: Nausea) Qty: 12 0RF No Action insulin regular human 100 unit/mL solution 10 - 15 unit SQ QID 30 Days Qty: 10 4RF gabapentin 300 mg capsule 300 mg PO BID 30 Days Qty: 60 1RF (DME) True Metrix Glucose Test Strip Strip See Rx Instructions .Route Qty: 100 3RF Rx Instructions: Test up to 3x daily insulin glargine [Basaglar KwikPen U-100 Insulin] 100 unit/mL (3 mL) insulin pen 20 unit SQ BID Qty: 40 0RF Referrals Follow up/Referrals: Provider,Referral, MD [Primary Care Provider] - See instructions Activity Restrictions/Add. Instructions Additional Instructions/Restrictions: Drink plenty of fluids. Take tylenol or ibuprofen for pain or fever. Take the medications as directed. Follow up with your regular doctor. GO TO THE ER FOR ANY WORSENING SYMPTOMS Clinical Impressions Clinical Impression: Influenza A Stand Alone Forms Stand Alone Forms: Work/School Release Instructions Patient Instructions: DI for Influenza -- Adult, Ondansetron, Benzonatate, Oseltamivir Print Language Print Language: Romanian Discharge ED Provider: Ubaldo Tidwell [facility] General Stated complaint: body aches , headache Time Seen by Provider: 08/20/24 18:20 Related Data Previous Rx's ?Medication ?Instructions ?Recorded insulin regular human 100 unit/mL 10 - 15 unit (0.1 - 0.15 mL) SQ 09/04/23 injection solution QID Diabetes 30 days #10 mL blood sugar diagnostic (True #100 ea 09/05/23 Metrix Glucose Test Strip) gabapentin 300 mg capsule 300 mg PO BID Pain 30 days #60 caps 01/27/24 insulin glargine 100 unit/mL (3 20 unit (0.2 mL) SQ BID Diabetes 03/16/24 mL) subcutaneous pen (Basaglar #40 mL KwikPen U-100 Insulin) benzonatate 100 mg capsule 100 mg PO TIDP PRN Cough #30 caps 08/20/24 ondansetron 4 mg disintegrating 4 mg PO Q8H PRN Nausea #12 tabs 08/20/24 tablet oseltamivir 75 mg capsule (Tamiflu) 75 mg PO BID 5 days #10 caps 08/20/24 Allergies Allergy/AdvReac Type Severity Reaction Status Date / Time metoclopramide AdvReac Anxiety Verified 01/27/24 10:19 [facility] Disclaimer: The information contained in this section may have been updated after the patient was seen, as this information can be updated by other users. Medical History DKA, type 1 Mixed acid base balance disorder Leukocytosis Nausea and vomiting Tachycardia Acute dehydration Nausea vomiting and diarrhea Diabetic peripheral neuropathy associated with type 1 diabetes mellitus Sunny is taking gabapentin 300 mg twice a day with 600 mg at bedtime. This seems to be controlling his peripheral neuropathic pain. We will continue with this. Diabetes type 1, controlled HbA1c was 7.6 in April 2023. Will recheck it today. Would like to get it as low as possible obviously. Patient is also committed to this. Microalbuminuria I did discuss this case with an forensic photographer. He stated he was happy to see this patient. Will discuss this with this patient when he returns in a month for follow-up. 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 This was 42.8 and within the normal range. He is to continue his current supplementation. Anemia Will check a CBC today. Addendum: CBC returns with a hemoglobin of 13.4. He is normocytic normochromic at this point. RDW's are within the normal range. Will consider sending him to hematology for evaluation. Cannabis hyperemesis syndrome concurrent with and due to cannabis dependence Cannabis hyperemesis syndrome concurrent with and due to cannabis abuse Long discussion with this patient about his cannabis use. He understands that the nausea and vomiting he was experience is probably related to that and is a cannabis hyperemesis syndrome. He states he has cut down and is only using it once a day. I made it clear to him that September 19 he has to be THC negative. Will certainly do a drug screen when he returns. Diabetic peripheral neuropathy Patient states that the gabapentin is working extremely well for his pain. Will continue that. Cannabis abuse Sunny states he wants to quit his cannabis us we will follow-up with him on this at his next visit and also do a urine screen. I strongly encouraged him to do this. We did not discuss this issue today as I am more concerned about his microalbuminuria. Gastritis Tobacco use Had a long discussion about putting smoking with this patient. I told him he definitely needs to quit as soon as possible. He understands realizes but states it is hard . Will keep working with him. He states he wants to get off the marijuana first and that certainly is reasonable. Anterior pleuritic pain Pneumonia Pneumonia with cavity of lung Vomiting Diabetes mellitus Vomiting alone Rib pain on right side Neuropathy DKA, type 1 Improving. Lower extremity weakness Possible recurrent/relapsing Guillain-Sampson?, transfer arrangements as noted Nonadherence to medication Dehydration Hyperglycemia Abscess of finger of right hand Abscess Surgical History History of appendectomy Family History Other Family history non-contributory No significant family history Social History Smoking Status: Former smoker alcohol intake: never substance use type: marijuana current occupational status: other Travel in the last 8 weeks: None household members: friend(s) housing: house current occupational exposures/hazards: No caffeine: No Have you lived/traveled outside [place] in past 30 days?: No Contact w/someone who lives/traveled outside [place] past 30 days?: No Exposure to someone with infectious disease in past 14 days?: No Do you have a fever (greater than 100.4 F or 38 C)?: Yes Have you tested positive for COVID-19: No Exposed to someone with COVID-19 in past 14 days?: No Do you have a sore throat?: Yes Do you have a cough?: Yes Do you have any weakness?: Yes Do you have any diarrhea?: No Are you experiencing any unusual bleeding?: No Do you have any muscle aches/pain?: No Do you have any abdominal pain?: No Are you experiencing loss of taste or smell?: No ROS Obtained: Yes All systems reviewed & no additional complaints except as documented Constitutional Constitutional: Reports chills and Reports fever(s) Eyes Eyes: Denies eye discharge ENT Ears, Nose, Mouth, and Throat: Reports as per HPI Cardiovascular Cardiovascular: Denies chest pain Respiratory Respiratory: Denies chest congestion and Reports cough Gastrointestinal Gastrointestingal: Reports nausea; Denies abdominal pain, constipation, cramping, diarrhea or vomiting Musculoskeletal Musculoskeletal: Denies arthralgias Integumentary/Breasts Skin/Breast: Denies rash Neurologic Neurologic: Denies paresthesias Physical Exam General General appearance: alert and in no apparent distress Head Head exam: atraumatic, normocephalic and normal inspection Eye Eye exam: Present normal appearance, PERRL and EOMI ENT ENT exam: Present mucous membranes moist and normal external ear exam Expanded ENT Exam TM/Canal exam: Bilateral TM: erythema and bulging Nose exam: Absent sinus tenderness Mouth exam: Present normal external inspection; Absent drooling Teeth exam: Present normal inspection Throat exam: Present tonsillar erythema, tonsillomegaly and tonsillar exudate Neck Neck exam: Present normal inspection, full ROM and trachea midline; Absent tenderness, meningismus or lymphadenopathy Chest Chest inspection: Present normal inspection and symmetric chest wall rise; Absent tenderness Respiratory Respiratory exam: Present normal lung sounds bilaterally; Absent respiratory distress, wheezes, stridor or accessory muscle use Cardiovascular Cardiovascular exam: Present regular rate and normal rhythm; Absent systolic murmur or diastolic murmur Abdominal Exam Abdominal exam: Present soft and normal bowel sounds; Absent distention, tende rness, guarding, rebound or rigidity Extremities Exam Extremities exam: Present normal inspection and normal capillary refill; Absent calf tenderness Back Exam Back exam: Present normal inspection and full ROM; Absent tenderness, CVA tenderness (R) or CVA tenderness (L) Neurological Exam Neurological exam: Present alert, oriented X3 and CN II-XII intact Psychiatric Psychiatric exam: Present normal affect and normal mood Skin Skin exam: Present warm, dry, intact and normal color Medical Decision Making Medical Records Medical records reviewed: No I reviewed the patient's medical records. Screening: Per USPSTF and CDC recommendations, given the prevalence of disease in our region, it is our hospital?s policy to screen for HIV and viral Hepatitis for all patients aged 18 and over and those with ongoing risk factors. Chas Inquiry Pt receiving controlled substance: No Lab Data Lab results reviewed: Yes I reviewed the patient's lab results.
[2024-08-20 18:28] VITALS: BP 121/76; PULSE 122; RESP 20; TEMP 37.4; O2SAT 98; BMI 20.5
[2024-08-20 18:35] LABS: UTC Influenza A Antigen Positive (Negative); UTC Influenza B Antigen Negative (Negative)
[2024-08-20] MEDS: OSELTAMIVIR 75MG CAPSULE 75 MG PO (18:46)
[2024-08-20 18:49] VITALS: BP 121/76; PULSE 122; RESP 20; TEMP 37.4
== END 2024-08-20 18:50 | disposition home or self-care (01) ==
PROVIDERS: Emergency Provider Nurse Practitioner Family
DX: J09.X2 Influenza due to identified novel influenza A virus with other respiratory manifestations (principal)
CPT/HCPCS: 87804; 99212; G0381

== ENCOUNTER 2024-10-17 21:55 | Observation (INO) | payer SELFPAY ==
[2024-10-17 21:58] VITALS: BP 135/86; PULSE 87; RESP 12; TEMP 37.1; O2SAT 98; BMI 16.2
[2024-10-17 22:02] VITALS: BP 129/80; PULSE 86; RESP 18; O2SAT 100
--- NOTE | 2024-10-17 22:10 | ECG_ITS ---
APPROVED REPORT Exam: Resting ECG HR:85 bpm ECG Measurements Heart Rate 85 AXES NM 131 P 83 QRSd 86 QRS 63 QT 349 T 40 QTc 391 Conclusion SINUS RHYTHM POSSIBLE RIGHT ATRIAL ENLARGEMENT [0.25mV P-WAVE] POSSIBLE LEFT ATRIAL ENLARGEMENT [-0.1mV P-WAVE IN V1/V2] NONSPECIFIC T-WAVE ABNORMALITY No STEMI Electronically signed by : PHILLIP RUFFIN, 10/19/2024 00:23:07
[2024-10-17] MEDS: ONDANSETRON 4MG/2ML VIAL 4 MG IV ×2 (22:14→22:37)
[2024-10-17] MEDS: 0.9 % SODIUM CHLORIDE 1000ML 1,000 ML 999 ML IV ×2 (22:15→23:53)
[2024-10-17] MEDS: FAMOTIDINE 20MG/2ML VIAL 20 MG IV (22:15)
--- NOTE | 2024-10-17 22:18 | ED_ITS ---
Discharge Plan Disposition Patient Disposition: Admitted Condition: Fair Prescriptions Prescriptions: No Action insulin regular human 100 unit/mL solution 10 - 15 unit SQ QID 30 Days Qty: 10 4RF gabapentin 300 mg capsule 300 mg PO BID 30 Days Qty: 60 1RF (DME) True Metrix Glucose Test Strip Strip See Rx Instructions .Route Qty: 100 3RF Rx Instructions: Test up to 3x daily insulin glargine [Basaglar KwikPen U-100 Insulin] 100 unit/mL (3 mL) insulin pen 20 unit SQ BID Qty: 40 0RF benzonatate 100 mg capsule 100 mg PO TIDP PRN (Reason: Cough) Qty: 30 0RF oseltamivir [Tamiflu] 75 mg capsule 75 mg PO BID 5 Days Qty: 10 0RF ondansetron 4 mg Tablet,Disintegrating 4 mg PO Q8H PRN (Reason: Nausea) Qty: 12 0RF Referrals Follow up/Referrals: Provider,Referral, MD [Primary Care Provider] - See instructions Clinical Impressions Clinical Impression: Intractable nausea and vomiting, Diarrhea, Lactic acidosis Instructions Patient Instructions: DI for Acute Abdominal Pain Print Language Print Language: Moldovan Discharge ED Provider: Rashaun Carrillo General Adult HPI <Hortencia Weller (ED), [employer] - Last Filed: 10/17/24 22:21> General Chief complaint: Abdominal Pain Stated complaint: Abd. Pain Time Seen by Provider: 10/17/24 21:58 Mode of Arrival: Ambulatory Source of Information: Patient Description of Symptoms (Recalled from ER Triage Doc. by RN): pt presents with c/o abd pain and vomiting that began this AM. History of Present Illness HPI narrative: This is a 33-year-old male who presents to the ED today with complaint of abdominal pain and vomiting that began about noon today. He has also had diarrhea all day. He states that he is very weak. He does not know if he has had a fever or not. He is a type I diabetic and has going on for a according to his significant other. She says that he has been in and out today. No other symptoms at this time. Related Data Previous Rx's ?Medication ?Instructions ?Recorded insulin regular human 100 unit/mL 10 - 15 unit (0.1 - 0.15 mL) SQ 09/04/23 injection solution QID Diabetes 30 days #10 mL blood sugar diagnostic (True #100 ea 09/05/23 Metrix Glucose Test Strip) gabapentin 300 mg capsule 300 mg PO BID Pain 30 days #60 caps 01/27/24 insulin glargine 100 unit/mL (3 20 unit (0.2 mL) SQ BID Diabetes 03/16/24 mL) subcutaneous pen (Basaglar #40 mL KwikPen U-100 Insulin) benzonatate 100 mg capsule 100 mg PO TIDP PRN Cough #30 caps 08/20/24 ondansetron 4 mg disintegrating 4 mg PO Q8H PRN Nausea #12 tabs 08/20/24 tablet oseltamivir 75 mg capsule (Tamiflu) 75 mg PO BID 5 days #10 caps 08/20/24 Allergies Allergy/AdvReac Type Severity Reaction Status Date / Time metoclopramide AdvReac Anxiety Verified 01/27/24 10:19 PFS <Hortencia Weller (ED), [employer] - Last Filed: 10/17/24 22:21> PFS Disclaimer: The information contained in this section may have been updated after the patient was seen, as this information can be updated by other users. Medical History DKA, type 1 Mixed acid base balance disorder Leukocytosis Nausea and vomiting Tachycardia Acute dehydration Nausea vomiting and diarrhea Diabetic peripheral neuropathy associated with type 1 diabetes mellitus Sunny is taking gabapentin 300 mg twice a day with 600 mg at bedtime. This seems to be controlling his peripheral neuropathic pain. We will continue with this. Diabetes type 1, controlled HbA1c was 7.6 in April 2023. Will recheck it today. Would like to get it as low as possible obviously. Patient is also committed to this. Microalbuminuria I did discuss this case with an mosaic tile maker. He stated he was happy to see this patient. Will discuss this with this patient when he returns in a month for follow-up. 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 This was 42.8 and within the normal range. He is to continue his current supplementation. Anemia Will check a CBC today. Addendum: CBC returns with a hemoglobin of 13.4. He is normocytic normochromic at this point. RDW's are within the normal range. Will consider sending him to hematology for evaluation. Cannabis hyperemesis syndrome concurrent with and due to cannabis dependence Cannabis hyperemesis syndrome concurrent with and due to cannabis abuse Long discussion with this patient about his cannabis use. He understands that the nausea and vomiting he was experience is probably related to that and is a cannabis hyperemesis syndrome. He states he has cut down and is only using it once a day. I made it clear to him that September 19 he has to be THC negative. Will certainly do a drug screen when he returns. Diabetic peripheral neuropathy Patient states that the gabapentin is working extremely well for his pain. Will continue that. Cannabis abuse Sunny states he wants to quit his cannabis us we will follow-up with him on this at his next visit and also do a urine screen. I strongly encouraged him to do this. We did not discuss this issue today as I am more concerned about his microalbuminuria. Gastritis Tobacco use Had a long discussion about putting smoking with this patient. I told him he definitely needs to quit as soon as possible. He understands realizes but states it is hard . Will keep working with him. He states he wants to get off the marijuana first and that certainly is reasonable. Anterior pleuritic pain Pneumonia Pneumonia with cavity of lung Vomiting Diabetes mellitus Vomiting alone Rib pain on right side Neuropathy DKA, type 1 Improving. Lower extremity weakness Possible recurrent/relapsing Guillain-Sampson?, transfer arrangements as noted Nonadherence to medication Dehydration Hyperglycemia Abscess of finger of right hand Abscess Surgical History History of appendectomy Family History Other Family history non-contributory No significant family history Social History Smoking Status: Current every day smoker alcohol intake: never substance use type: marijuana current occupational status: other Travel in the last 8 weeks: None household members: friend(s) housing: house current occupational exposures/hazards: No caffeine: No Have you lived/traveled outside [place] in past 30 days?: No Contact w/someone who lives/traveled outside US past 30 days?: No Exposure to someone with infectious disease in past 14 days?: No Do you have a fever (greater than 100.4 F or 38 C)?: No Have you tested positive for COVID-19: No Exposed to someone with COVID-19 in past 14 days?: No Do you have a sore throat?: No Do you have a cough?: No Do you have any weakness?: No Do you have any diarrhea?: No Are you experiencing any unusual bleeding?: No Do you have any muscle aches/pain?: No Do you have any abdominal pain?: No Are you experiencing loss of taste or smell?: No Other Medical History Have you received the Flu Vaccine for this season: No Have you received the Pneumonia Vaccine: No <Hortenciarochelle Weller (ED), [employer] - Last Filed: 10/17/24 22:21> ROS Obtained: Yes Systems reviewed as appropriate & no additional complaints except as documented Constitutional Constitutional: Reports as per HPI Physical Exam <Hortencialina Weller (ED), [employer] - Last Filed: 10/17/24 22:21> General General appearance: in distress Head Head exam: normocephalic Eye Eye exam: Present PERRL and EOMI ENT ENT exam: Present normal oropharynx and mucous membranes dry Neck Neck exam: Present full ROM and trachea midline Respiratory Respiratory exam: Present normal lung sounds bilaterally Cardiovascular Cardiovascular exam: Present normal rhythm, normal heart sounds, +S1 and +S2 Abdominal Exam Abdominal exam: Present soft, tenderness and normal bowel sounds Extremities Exam Extremities exam: Present full ROM and normal capillary refill Neurological Exam Neurological exam: Present alert, oriented X3 and other (Patient weak due to vomiting all day) Skin Skin exam: Present warm, dry and intact <Rashaun Carrillo MD - Last Filed: 10/18/24 00:18> General General appearance: alert Medical Decision Making <Hortencialina Weller (ED), [employer] - Last Filed: 10/17/24 22:21> Medical Records Screening: Per USPSTF and CDC recommendations, given the prevalence of disease in our region, it is our hospital?s policy to screen for HIV and viral Hepatitis for all patients aged 18 and over and those with ongoing risk factors. Vital Signs: 10/17/24 21:58 10/17/24 22:02 Temperature 98.7 F Temperature Source Oral Pulse Rate 86 Pulse Rate [Radial] 87 Respiratory Rate 12 18 Blood Pressure 129/80 Blood Pressure [Right Arm] 135/86 Blood Pressure Mean [Right Arm] 102 Blood Pressure Position [Right Arm] Sitting 02 Sat by Pulse Oximetry 98 100 Oxygen Delivery Method Room Air Room Air Lab Data Lab Results 10/17/24 21:53: WBC 11.1 H, RBC 5.16, Hgb 15.2, Hct 42.6, MCV 82.6, MCH 29.5, M CHC 35.7 H, RDW 11.9, Plt Count 329, MPV 11.0 H, Neut % (Auto) 83.7 H, Lymph % (Auto) 11.5, [place] % (Auto) 3.9, Eos % (Auto) 0.2, Baso % (Auto) 0.4, Neut # (Auto) 9.3 H, Lymph # (Auto) 1.3, [place] # (Auto) 0.4, Eos # (Auto) 0.0, Baso # (Auto) 0.0, Sodium 139, Potassium 4.3, Chloride 98, Carbon Dioxide 23, Anion Gap 22.3 H, BUN 19, Creatinine 1.20, Estimated Creat Clear 67, Estimated GFR 70, Est GFR ( Amer) 84, Glucose 291 H, Calcium 10.5 H, Magnesium 1.8, Total Bilirubin 1.1, AST 35, ALT 32, Alkaline Phosphatase 143 H, Total Protein 8.5 H, Albumin 4.9, Globulin 3.6 H, Albumin/Globulin Ratio 1.4, Lipase 51, Acetone Level Small 10/17/24 22:10: VBG pH 7.37, VBG pCO2 39.8, VBG pO2 46.2 H, VBG HCO3 22.2 L, VBG Total CO2 23.5, VBG O2 Saturation 83.1 H, VBG Base Excess -3.1 L, VBG Lactic Acid 2.8 H 10/17/24 21:53 10/17/24 21:53 Orders (Tests/Meds): ED MEDICATIONS Generic Name Dose Route Start Last Admin Trade Name Freq PRN Reason Stop Dose Admin Acetaminophen 650 mg 10/18/24 00:11 Acetaminophen 325mg Tab PO 11/17/24 00:10 Q4HP PRN Fever or Mild Pain (1-3) Enoxaparin Sodium 40 mg 10/18/24 09:00 Enoxaparin 40mg/0.4ml Syringe SUBCUT 11/17/24 08:59 DAILY LENA Sodium Chloride 1,000 mls @ 999 mls/hr 10/17/24 23:32 10/17/24 23:53 Sod Chlor 0.9% 1000ml Bag IV 10/18/24 00:32 999 mls/hr .Q1H1M ONE Administration Lactated Ringer's 1,000 mls @ 100 mls/hr 10/18/24 00:15 Lactated Ringer's 1000 Ml Bag IV 11/17/24 00:14 .Q10H LENA Pantoprazole Sodium 40 mg 10/18/24 21:00 Pantoprazole 40mg Vial IV 11/17/24 20:59 HS LENA Promethazine HCl 25 mg 10/18/24 00:11 Promethazine Hcl 25mg/Ml 1ml Vial IV 11/17/24 00:10 Q6HP PRN Nausea And Vomiting Sodium Chloride 8 ml 10/17/24 22:10 Sodium Chloride 0.9% 10ml Vial IV 11/16/24 22:09 NEEDED PRN dilute pepcid Sodium Chloride 25 ml 10/18/24 00:11 Sodium Chloride 0.9% 25ml Bag IV 10/18/24 00:12 ONCE ONE Discontinued Medications Generic Name Dose Route Start Last Admin Trade Name Freq PRN Reason Stop Dose Admin Famotidine 20 mg 10/17/24 22:10 10/17/24 22:15 Famotidine 20mg/2ml Vial IV 10/17/24 22:11 20 mg ONCE ONE Administration Sodium Chloride 1,000 mls @ 999 mls/hr 10/17/24 22:10 10/17/24 22:15 Sod Chlor 0.9% 1000ml Bag IV 10/17/24 23:10 999 mls/hr .Q1H1M ONE Administration Insulin Glargine 10 unit 10/17/24 23:42 10/17/24 23:52 Insulin Glargine 100 Units/Ml 10ml Vial SUBCUT 10/17/24 23:43 10 unit ONCE ONE Administration Ketorolac Tromethamine 30 mg 10/17/24 23:37 10/17/24 23:53 Ketorolac 30mg/Ml Vial IV 10/17/24 23:38 30 mg ONCE ONE Administration Ondansetron HCl 4 mg 10/17/24 22:12 10/17/24 22:14 Ondansetron 4mg/2ml Vial IV 10/17/24 22:13 4 mg ONCE ONE Administration Ondansetron HCl 4 mg 10/17/24 22:33 10/17/24 22:37 Ondansetron 4mg/2ml Vial IV 10/17/24 22:34 4 mg ONCE ONE Administration Promethazine HCl 12.5 mg 10/17/24 23:37 10/17/24 23:53 Promethazine Hcl 25mg/Ml 1ml Vial IV 10/17/24 23:38 12.5 mg ONCE ONE Administration Sodium Chloride 25 ml 10/17/24 23:37 10/17/24 23:53 Sodium Chloride 0.9% 25ml Bag IV 10/17/24 23:38 25 ml ONCE ONE Administration ORDERS Category Date Time Status Acetone, Serum (Rapid) Stat Lab 10/17/24 21:53 Completed Basic Metabolic Panel AMLAB Lab 10/18/24 06:00 Ordered Basic Metabolic Panel AMLAB Lab 10/19/24 06:00 Ordered Basic Metabolic Panel AMLAB Lab 10/20/24 06:00 Ordered Basic Metabolic Panel AMLAB Lab 10/21/24 06:00 Ordered Basic Metabolic Panel AMLAB Lab 10/22/24 06:00 Ordered CBC [Complete Blood Count Auto Diff] Stat Lab 10/17/24 21:53 Completed Complete Blood Count Auto Diff AMLAB Lab 10/18/24 06:00 Ordered Complete Blood Count Auto Diff AMLAB Lab 10/19/24 06:00 Ordered Complete Blood Count Auto Diff AMLAB Lab 10/20/24 06:00 Ordered Complete Blood Count Auto Diff AMLAB Lab 10/21/24 06:00 Ordered Complete Blood Count Auto Diff AMLAB Lab 10/22/24 06:00 Ordered Comprehensive Metabolic Panel Stat Lab 10/17/24 21:53 Completed Diarrhea 6-11 Panel, Cdiff PCR Stat Lab 10/17/24 23:37 Ordered Lipase Stat Lab 10/17/24 21:53 Completed Magnesium AMLAB Lab 10/18/24 06:00 Ordered Magnesium Stat Lab 10/17/24 21:53 Completed Mini Respiratory Panel Stat Lab 10/17/24 22:10 Ordered UDS [Drug Screen,Urine] Stat Lab 10/18/24 00:16 Ordered Urinalysis and Microscopic Stat Lab 10/17/24 22:10 Ordered VBG [Venous Blood Gas] Stat RT 10/17/24 22:10 Completed <Rashaun Carrillo MD - Last Filed: 10/18/24 00:18> Medical Records Medical records reviewed: Yes I reviewed the patient's medical records. MR Comment: Family medicine progress note from 08/20/2024 notable for patient's past medical history of type 1 diabetes Chas Inquiry Pt receiving controlled substance: No Vital Signs: 10/17/24 21:58 10/17/24 22:02 Temperature 98.7 F Temperature Source Oral Pulse Rate 86 Pulse Rate [Radial] 87 Respiratory Rate 12 18 Blood Pressure 129/80 Blood Pressure [Right Arm] 135/86 Blood Pressure Mean [Right Arm] 102 Blood Pressure Position [Right Arm] Sitting 02 Sat by Pulse Oximetry 98 100 Oxygen Delivery Method Room Air Room Air Lab Data Lab Results 10/17/24 21:53: WBC 11.1 H, RBC 5.16, Hgb 15.2, Hct 42.6, MCV 82.6, MCH 29.5, M CHC 35.7 H, RDW 11.9, Plt Count 329, MPV 11.0 H, Neut % (Auto) 83.7 H, Lymph % (Auto) 11.5, [place] % (Auto) 3.9, Eos % (Auto) 0.2, Baso % (Auto) 0.4, Neut # (Auto) 9.3 H, Lymph # (Auto) 1.3, [place] # (Auto) 0.4, Eos # (Auto) 0.0, Baso # (Auto) 0.0, Sodium 139, Potassium 4.3, Chloride 98, Carbon Dioxide 23, Anion Gap 22.3 H, BUN 19, Creatinine 1.20, Estimated Creat Clear 67, Estimated GFR 70, Est GFR ( Amer) 84, Glucose 291 H, Calcium 10.5 H, Magnesium 1.8, Total Bilirubin 1.1, AST 35, ALT 32, Alkaline Phosphatase 143 H, Total Protein 8.5 H, Albumin 4.9, Globulin 3.6 H, Albumin/Globulin Ratio 1.4, Lipase 51, Acetone Level Small 10/17/24 22:10: VBG pH 7.37, VBG pCO2 39.8, VBG pO2 46.2 H, VBG HCO3 22.2 L, VBG Total CO2 23.5, VBG O2 Saturation 83.1 H, VBG Base Excess -3.1 L, VBG Lactic Acid 2.8 H Orders (Tests/Meds): ED MEDICATIONS Generic Name Dose Route Start Last Admin Trade Name Ayan PRN Reason Stop Dose Admin Acetaminophen 650 mg 10/18/24 00:11 Acetaminophen 325mg Tab PO 11/17/24 00:10 Q4HP PRN Fever or Mild Pain (1-3) Enoxaparin Sodium 40 mg 10/18/24 09:00 Enoxaparin 40mg/0.4ml Syringe SUBCUT 11/17/24 08:59 DAILY LENA Sodium Chloride 1,000 mls @ 999 mls/hr 10/17/24 23:32 10/17/24 23:53 Sod Chlor 0.9% 1000ml Bag IV 10/18/24 00:32 999 mls/hr .Q1H1M ONE Administration Lactated Ringer's 1,000 mls @ 100 mls/hr 10/18/24 00:15 Lactated Ringer's 1000 Ml Bag IV 11/17/24 00:14 .Q10H LENA Pantoprazole Sodium 40 mg 10/18/24 21:00 Pantoprazole 40mg Vial IV 11/17/24 20:59 HS LENA Promethazine HCl 25 mg 10/18/24 00:11 Promethazine Hcl 25mg/Ml 1ml Vial IV 11/17/24 00:10 Q6HP PRN Nausea And Vomiting Sodium Chloride 8 ml 10/17/24 22:10 Sodium Chloride 0.9% 10ml Vial IV 11/16/24 22:09 NEEDED PRN dilute pepcid Sodium Chloride 25 ml 10/18/24 00:11 Sodium Chloride 0.9% 25ml Bag IV 10/18/24 00:12 ONCE ONE Discontinued Medications Generic Name Dose Route Start Last Admin Trade Name Ayan PRN Reason Stop Dose Admin Famotidine 20 mg 10/17/24 22:10 10/17/24 22:15 Famotidine 20mg/2ml Vial IV 10/17/24 22:11 20 mg ONCE ONE Administration Sodium Chloride 1,000 mls @ 999 mls/hr 10/17/24 22:10 10/17/24 22:15 Sod Chlor 0.9% 1000ml Bag IV 10/17/24 23:10 999 mls/hr .Q1H1M ONE Administration Insulin Glargine 10 unit 10/17/24 23:42 10/17/24 23:52 Insulin Glargine 100 Units/Ml 10ml Vial SUBCUT 10/17/24 23:43 10 unit ONCE ONE Administration Ketorolac Tromethamine 30 mg 10/17/24 23:37 10/17/24 23:53 Ketorolac 30mg/Ml Vial IV 10/17/24 23:38 30 mg ONCE ONE Administration Ondansetron HCl 4 mg 10/17/24 22:12 10/17/24 22:14 Ondansetron 4mg/2ml Vial IV 10/17/24 22:13 4 mg ONCE ONE Administration Ondansetron HCl 4 mg 10/17/24 22:33 10/17/24 22:37 Ondansetron 4mg/2ml Vial IV 10/17/24 22:34 4 mg ONCE ONE Administration Promethazine HCl 12.5 mg 10/17/24 23:37 10/17/24 23:53 Promethazine Hcl 25mg/Ml 1ml Vial IV 10/17/24 23:38 12.5 mg ONCE ONE Administration Sodium Chloride 25 ml 10/17/24 23:37 10/17/24 23:53 Sodium Chloride 0.9% 25ml Bag IV 10/17/24 23:38 25 ml ONCE ONE Administration ORDERS Category Date Time Status Acetone, Serum (Rapid) Stat Lab 10/17/24 21:53 Completed Basic Metabolic Panel AMLAB Lab 10/18/24 06:00 Ordered Basic Metabolic Panel AMLAB Lab 10/19/24 06:00 Ordered Basic Metabolic Panel AMLAB Lab 10/20/24 06:00 Ordered Basic Metabolic Panel AMLAB Lab 10/21/24 06:00 Ordered Basic Metabolic Panel AMLAB Lab 10/22/24 06:00 Ordered CBC [Complete Blood Count Auto Diff] Stat Lab 10/17/24 21:53 Completed Complete Blood Count Auto Diff AMLAB Lab 10/18/24 06:00 Ordered Complete Blood Count Auto Diff AMLAB Lab 10/19/24 06:00 Ordered Complete Blood Count Auto Diff AMLAB Lab 10/20/24 06:00 Ordered Complete Blood Count Auto Diff AMLAB Lab 10/21/24 06:00 Ordered Complete Blood Count Auto Diff AMLAB Lab 10/22/24 06:00 Ordered Comprehensive Metabolic Panel Stat Lab 10/17/24 21:53 Completed Diarrhea 6-11 Panel, Cdiff PCR Stat Lab 10/17/24 23:37 Ordered Lipase Stat Lab 10/17/24 21:53 Completed Magnesium AMLAB Lab 10/18/24 06:00 Ordered Magnesium Stat Lab 10/17/24 21:53 Completed Mini Respiratory Panel Stat Lab 10/17/24 22:10 Ordered UDS [Drug Screen,Urine] Stat Lab 10/18/24 00:16 Ordered Urinalysis and Microscopic Stat Lab 10/17/24 22:10 Ordered VBG [Venous Blood Gas] Stat RT 10/17/24 22:10 Completed Medical Decision Narrative: In summary, this 33-year-old male with a past medical history of type 1 diabetes presents to the emergency department today with nausea, vomiting, diarrhea. On initial evaluation patient is in acute distress with profuse nausea and vomiting, hemodynamically stable. Differential diagnosis includes but is not limited to gastroenteritis, DKA, pancreatitis. Based on these concerns, I ordered CBC, CMP, acetone level, VBG, lipase. ECG personally interpreted as noted above. Patient received 2 L of normal saline, a total of 8 mg of Zofran for treatment. Labs personally reviewed demonstrate leukocytosis with a white blood cell count of 11.1, normal venous pH of 7.37, lactate of 2.8, anion gap of 22, small acetone. At the time of shift change, reevaluation was pending. Care was handed off to Dr. Alva. See below for ultimate disposition. <Lam Alva MD - Last Filed: 10/18/24 00:28> Vital Signs: 10/17/24 21:58 10/17/24 22:02 Temperature 98.7 F Temperature Source Oral Pulse Rate 86 Pulse Rate [Radial] 87 Respiratory Rate 12 18 Blood Pressure 129/80 Blood Pressure [Right Arm] 135/86 Blood Pressure Mean [Right Arm] 102 Blood Pressure Position [Right Arm] Sitting 02 Sat by Pulse Oximetry 98 100 Oxygen Delivery Method Room Air Room Air Lab Data Lab Results 10/17/24 21:53: WBC 11.1 H, RBC 5.16, Hgb 15.2, Hct 42.6, MCV 82.6, MCH 29.5, M CHC 35.7 H, RDW 11.9, Plt Count 329, MPV 11.0 H, Neut % (Auto) 83.7 H, Lymph % (Auto) 11.5, [place] % (Auto) 3.9, Eos % (Auto) 0.2, Baso % (Auto) 0.4, Neut # (Auto) 9.3 H, Lymph # (Auto) 1.3, [place] # (Auto) 0.4, Eos # (Auto) 0.0, Baso # (Auto) 0.0, Sodium 139, Potassium 4.3, Chloride 98, Carbon Dioxide 23, Anion Gap 22.3 H, BUN 19, Creatinine 1.20, Estimated Creat Clear 67, Estimated GFR 70, Est GFR ( Amer) 84, Glucose 291 H, Calcium 10.5 H, Magnesium 1.8, Total Bilirubin 1.1, AST 35, ALT 32, Alkaline Phosphatase 143 H, Total Protein 8.5 H, Albumin 4.9, Globulin 3.6 H, Albumin/Globulin Ratio 1.4, Lipase 51, Acetone Level Small 10/17/24 22:10: VBG pH 7.37, VBG pCO2 39.8, VBG pO2 46.2 H, VBG HCO3 22.2 L, VBG Total CO2 23.5, VBG O2 Saturation 83.1 H, VBG Base Excess -3.1 L, VBG Lactic Acid 2.8 H Orders (Tests/Meds): ED MEDICATIONS Generic Name Dose Route Start Last Admin Trade Name Freq PRN Reason Stop Dose Admin Acetaminophen 650 mg 10/18/24 00:11 Acetaminophen 325mg Tab PO 11/17/24 00:10 Q4HP PRN Fever or Mild Pain (1-3) Enoxaparin Sodium 40 mg 10/18/24 09:00 Enoxaparin 40mg/0.4ml Syringe SUBCUT 11/17/24 08:59 DAILY LENA Sodium Chloride 1,000 mls @ 999 mls/hr 10/17/24 23:32 10/17/24 23:53 Sod Chlor 0.9% 1000ml Bag IV 10/18/24 00:32 999 mls/hr .Q1H1M ONE Administration Lactated Ringer's 1,000 mls @ 100 mls/hr 10/18/24 00:15 Lactated Ringer's 1000 Ml Bag IV 11/17/24 00:14 .Q10H LENA Pantoprazole Sodium 40 mg 10/18/24 21:00 Pantoprazole 40mg Vial IV 11/17/24 20:59 HS LENA Promethazine HCl 25 mg 10/18/24 00:11 Promethazine Hcl 25mg/Ml 1ml Vial IV 11/17/24 00:10 Q6HP PRN Nausea And Vomiting Sodium Chloride 8 ml 10/17/24 22:10 Sodium Chloride 0.9% 10ml Vial IV 11/16/24 22:09 NEEDED PRN dilute pepcid Sodium Chloride 25 ml 10/18/24 00:11 Sodium Chloride 0.9% 25ml Bag IV 10/18/24 00:12 ONCE ONE Discontinued Medications Generic Name Dose Route Start Last Admin Trade Name Aayn PRN Reason Stop Dose Admin Famotidine 20 mg 10/17/24 22:10 10/17/24 22:15 Famotidine 20mg/2ml Vial IV 10/17/24 22:11 20 mg ONCE ONE Administration Sodium Chloride 1,000 mls @ 999 mls/hr 10/17/24 22:10 10/17/24 22:15 Sod Chlor 0.9% 1000ml Bag IV 10/17/24 23:10 999 mls/hr .Q1H1M ONE Administration Insulin Glargine 10 unit 10/17/24 23:42 10/17/24 23:52 Insulin Glargine 100 Units/Ml 10ml Vial SUBCUT 10/17/24 23:43 10 unit ONCE ONE Administration Ketorolac Tromethamine 30 mg 10/17/24 23:37 10/17/24 23:53 Ketorolac 30mg/Ml Vial IV 10/17/24 23:38 30 mg ONCE ONE Administration Ondansetron HCl 4 mg 10/17/24 22:12 10/17/24 22:14 Ondansetron 4mg/2ml Vial IV 10/17/24 22:13 4 mg ONCE ONE Administration Ondansetron HCl 4 mg 10/17/24 22:33 10/17/24 22:37 Ondansetron 4mg/2ml Vial IV 10/17/24 22:34 4 mg ONCE ONE Administration Promethazine HCl 12.5 mg 10/17/24 23:37 10/17/24 23:53 Promethazine Hcl 25mg/Ml 1ml Vial IV 10/17/24 23:38 12.5 mg ONCE ONE Administration Sodium Chloride 25 ml 10/17/24 23:37 10/17/24 23:53 Sodium Chloride 0.9% 25ml Bag IV 10/17/24 23:38 25 ml ONCE ONE Administration ORDERS Category Date Time Status Acetone, Serum (Rapid) Stat Lab 10/17/24 21:53 Completed Basic Metabolic Panel AMLAB Lab 10/18/24 06:00 Ordered Basic Metabolic Panel AMLAB Lab 10/19/24 06:00 Ordered Basic Metabolic Panel AMLAB Lab 10/20/24 06:00 Ordered Basic Metabolic Panel AMLAB Lab 10/21/24 06:00 Ordered Basic Metabolic Panel AMLAB Lab 10/22/24 06:00 Ordered CBC [Complete Blood Count Auto Diff] Stat Lab 10/17/24 21:53 Completed Complete Blood Count Auto Diff AMLAB Lab 10/18/24 06:00 Ordered Complete Blood Count Auto Diff AMLAB Lab 10/19/24 06:00 Ordered Complete Blood Count Auto Diff AMLAB Lab 10/20/24 06:00 Ordered Complete Blood Count Auto Diff AMLAB Lab 10/21/24 06:00 Ordered Complete Blood Count Auto Diff AMLAB Lab 10/22/24 06:00 Ordered Comprehensive Metabolic Panel Stat Lab 10/17/24 21:53 Completed Diarrhea 6-11 Panel, Cdiff PCR Stat Lab 10/17/24 23:37 Ordered Lipase Stat Lab 10/17/24 21:53 Completed Magnesium AMLAB Lab 10/18/24 06:00 Ordered Magnesium Stat Lab 10/17/24 21:53 Completed Mini Respiratory Panel Stat Lab 10/17/24 22:10 Ordered UDS [Drug Screen,Urine] Stat Lab 10/18/24 00:16 Ordered Urinalysis and Microscopic Stat Lab 10/17/24 22:10 Ordered VBG [Venous Blood Gas] Stat RT 10/17/24 22:10 Completed Medical Decision Narrative: In summary, this 33-year-old male with a past medical history of type 1 diabetes presents to the emergency department today with nausea, vomiting, diarrhea. On initial evaluation patient is in acute distress with profuse nausea and vomiting, hemodynamically stable. Differential diagnosis includes but is not limited to gastroenteritis, DKA, pancreatitis. Based on these concerns, I ordered CBC, CMP, acetone level, VBG, lipase. ECG personally interpreted as noted above. Patient received 2 L of normal saline, a total of 8 mg of Zofran for treatment. Labs personally reviewed demonstrate leukocytosis with a white blood cell count of 11.1, normal venous pH of 7.37, lactate of 2.8, anion gap of 22, small acetone. At the time of shift change, reevaluation was pending. Care was handed off to Dr. Alva. See below for ultimate disposition. Alva: Upon my assumption of care patient is stable but still uncomfortable having nausea and emesis. He states he still has diffuse abdominal discomfort. He has also been having diarrhea. Patient received IV Phenergan and additional IV fluids but continued having emesis. I also administered Lantus since he had been out of it and his glucose is elevated and he is demonstrating signs towards DKA without being in fulminant DKA. He only received 10 units of Lantus when his normal dose is 20 since I do not want to make him hypoglycemic with poor oral intake at this time. Since he continues to have symptoms despite multiple interventions, I believe he requires admission to the hospital at this time. Diarrhea panel was pending. I discussed this case with the hospitalist and he graciously accepted the patient for admission. Patient admitted in stable condition. Critical Care <Rashaun Carrillo MD - Last Filed: 10/18/24 00:18> Critical Care Time Critical Care Time: No
--- NOTE | 2024-10-17 22:18 | PC.NURSE ---
resp contacted and made aware of need for VBG that is in the lab
[2024-10-17 22:19] LABS: Albumin Level 4.9 g/dl (3.5-5.0); Chloride 98 mmol/L (98-107); Potassium 4.3 mmoL/L (3.5-5.1); Sodium 139 mmol/L (136-145)
[2024-10-17 22:20] LABS: VBG Base Excess -3.1 mmol/L (-2.4-2.3); VBG HCO3 22.2 mmol/L (23-30); VBG Oxygen Saturation 83.1 % (50-70); VBG PCO2 39.8 mmol/L (35-51); VBG PH 7.37 mmol/L (7.31-7.41); VBG PO2 46.2 mmol/L (28-40); VBG Total CO2 23.5 mmol/L (23-27)
[2024-10-17 22:22] LABS: Lactate Venous 2.8 mmol/L (0.4-2.0)
[2024-10-17 22:22] LABS: Alanine Aminotransferase 32 U/L (12-78); Albumin/Globulin Ratio 1.4 (1.1-1.8); Alkaline Phosphatase 143 U/L (38-126); Anion Gap 22.3 mEq/L (5-15); Aspartate Amino Transferase 35 U/L (17-59); Bilirubin,Total 1.1 mg/dl (0.2-1.3); Blood Urea Nitrogen 19 mg/dl (9-20); Calcium 10.5 mg/dl (8.4-10.2); Carbon Dioxide 23 mmol/L (22.0-30.0); Creatinine Clearance Estimated 67 mL/min (50-200); Estimated Glomerular Filt Rate 70 ml/min (>60); GFR (African American) 84 ML/MIN (>60); Globulin 3.6 g/dL (1.3-3.2); Glucose 291 mg/dl (74-100); Lipase 51 U/L (23-300); Total Protein,Serum 8.5 g/dl (6.3-8.2)
[2024-10-17 22:23] LABS: Basophils % 0.4 % (0.1-2.0); Eosinophils % 0.2 % (0.1-12.0); Hematocrit 42.6 % (42.0-52.0); Hemoglobin 15.2 g/dL (14.1-18.0); Lymphocytes # 1.3 K/mm3 (0.7-4.5); Lymphocytes % 11.5 % (10-50); Magnesium 1.8 mg/dl (1.6-2.3); Mean Corpuscular HGB Conc 35.7 g/dL (31.8-35.4); Mean Corpuscular Hemoglobin 29.5 pg (27.0-31.2); Mean Corpuscular Volume 82.6 fl (80-94); Monocytes # 0.4 K/mm3 (0.1-1.0); Monocytes % 3.9 % (1.7-9.3); Neutrophils # 9.3 K/mm3 (1.8-7.8); Neutrophils % 83.7 % (37.0-80.0); Platelet Count 329 K/mm3 (142-424); Red Blood Count 5.16 M/mm3 (4.60-6.20); Red Cell Distribution Width 11.9 % (11.5-17.5); White Blood Count 11.1 K/mm3 (4.8-10.8)
[2024-10-17 22:24] LABS: Acetone, Serum (Rapid) Small (None Detect)
--- NOTE | 2024-10-17 23:42 | PC.NURSE ---
Patient vomiting. Provider notified. Informed patient we needed a stool sample, patient stated he would be able to give a sample after he received nausea medicine.
[2024-10-17] MEDS: INSULIN GLARGINE 100 UNITS/ML 10ML VIAL 10 UNIT SUBCUT (23:52)
[2024-10-17] MEDS: SODIUM CHLORIDE 0.9% 25ML BAG 25 ML IV (23:53)
[2024-10-17] MEDS: KETOROLAC 30MG/ML VIAL 30 MG IV (23:53)
[2024-10-17] MEDS: PROMETHAZINE HCL 25MG/ML 1ML VIAL 12.5 MG IV (23:53)
--- NOTE | 2024-10-18 00:14 | PC.NURSE ---
Notified House of admission
[2024-10-18 00:31] VITALS: BP 141/95; PULSE 112; RESP 20; RESP 22; TEMP 36.8; O2SAT 98
--- NOTE | 2024-10-18 01:01 | P.HP_ITS ---
<Statement entered by Bautista Hammonds MD - 10/21/24 11:10> I personally examined patient and agree with the plan of care outlined by the G[facility]ER. History of Present Illness *Admission Date: 10/18/24 *Reason for visit:: Nausea Vomitting, Diarrhea *History of present illness: This was a 33-year-old male with a past medical history of type 1 diabetes who presented to the emergency department with complaints of abdominal pain and vomiting that began earlier that day around noon. He also experienced diarrhea throughout the day and reported feeling very weak. He was unsure if he had a fever. His significant other noted that he had been ?in and out? that day, sugge sting altered mental status or lethargy, and confirmed his type 1 diabetes, though the duration of the condition was unclear from her statement. No other symptoms were reported at the time. On arrival, he was in acute distress with profuse nausea and vomiting but remained hemodynamically stable. Laboratory results revealed leukocytosis with a white blood cell count of 11.1 x 10?/?L, elevated glucose at 291 mg/dL, an anion gap of 22.3, and a small amount of acetone, raising concern for early diabetic ketoacidosis (DKA). However, a venous blood gas (VBG) showed a normal pH of 7.37, HCO3 of 22.2 mEq/L (mildly low), and lactate of 2.8 mmol/L (elevated), suggesting a compensated or early metabolic process rather than fulminant DKA. Other findings included normal lipase (51 U/L), mildly elevated creatinine (1.20 mg/dL), and normal liver enzymes except for an elevated alkaline phosphatase (143 U/L). He received 2 liters of normal saline and 8 mg of Zofran initially for treatment, followed later by IV Phenergan and additional fluids, but continued to have emesis. An ECG was performed and interpreted, though specific findings were not detailed beyond ruling out acute changes. The differential diagnosis included gastroenteritis, early DKA, pancreatitis, and possibly hyperemesis cannabinoid syndrome (noted in his history). Upon reassessment by the assuming provider, he remained stable but uncomfortable, with persistent nausea, vomiting, diarrhea, and diffuse abdominal discomfort. He received 10 units of Lantus (half his usual 20-unit dose) due to elevated glucose and poor oral intake, avoiding hypoglycemia risk. A diarrhea panel was pending. Despite multiple interventions (fluids, antiemetics), his symptoms persisted, prompting the decision for hospital admission. Care was initially handed off at shift change, with ultimate disposition detailed later. [facility] Disclaimer: The information contained in this section may have been updated after the patient was seen, as this information can be updated by other users. 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 Vitamin D deficiency Anemia Cannabis hyperemesis syndrome concurrent with and due to cannabis dependence Cannabis hyperemesis syndrome concurrent with and due to cannabis abuse Diabetic peripheral neuropathy Cannabis abuse Gastritis Tobacco use Anterior pleuritic pain Pneumonia Pneumonia with cavity of lung Vomiting Diabetes mellitus Vomiting alone Rib pain on right side Neuropathy DKA, type 1 Lower extremity weakness Nonadherence to medication Dehydration Hyperglycemia Abscess of finger of right hand Abscess Surgical History History of appendectomy Family History Other Family history non-contributory No significant family history Social History Smoking Status: Current every day smoker alcohol intake: never substance use type: marijuana current occupational status: other Travel in the last 8 weeks: None household members: friend(s) housing: house current occupational exposures/hazards: No caffeine: No Have you lived/traveled outside [place] in past 30 days?: No Contact w/someone who lives/traveled outside [place] past 30 days?: No Exposure to someone with infectious disease in past 14 days?: No Do you have a fever (greater than 100.4 F or 38 C)?: No Have you tested positive for COVID-19: No Exposed to someone with COVID-19 in past 14 days?: No Do you have a sore throat?: No Do you have a cough?: No Do you have any weakness?: No Do you have any diarrhea?: No Are you experiencing any unusual bleeding?: No Do you have any muscle aches/pain?: No Do you have any abdominal pain?: No Are you experiencing loss of taste or smell?: No Other Medical History Have you received the Flu Vaccine for this season: No Have you received the Pneumonia Vaccine: No Review of Systems Review of Systems Review of systems (narrative): 13 point review of systems negative except as listed in HPI Meds Home Medications and Allergies Home Medications ?Medication ?Instructions ?Recorded ?Confirmed ?Type insulin regular human 100 unit/mL 10 - 15 unit (0.1 - 0.15 mL) SQ 09/04/23 08/20/24 Rx injection solution QID Diabetes 30 days #10 mL blood sugar diagnostic (True #100 ea 09/05/23 01/27/24 Rx Metrix Glucose Test Strip) gabapentin 300 mg capsule 300 mg PO BID Pain 30 days #60 caps 01/27/24 08/20/24 Rx insulin glargine 100 unit/mL (3 20 unit (0.2 mL) SQ BID Diabetes 03/16/24 Rx mL) subcutaneous pen (myFairPartneraglar #40 mL KwikPen U-100 Insulin) benzonatate 100 mg capsule 100 mg PO TIDP PRN Cough #30 caps 08/20/24 Rx ondansetron 4 mg disintegrating 4 mg PO Q8H PRN Nausea #12 tabs 08/20/24 Rx tablet oseltamivir 75 mg capsule (Tamiflu) 75 mg PO BID 5 days #10 caps 08/20/24 Rx New Prescriptions to Start Prescriptions: Allergies Allergy/AdvReac Type Severity Reaction Status Date / Time metoclopramide AdvReac Anxiety Verified 01/27/24 10:19 Exam Data for Last 24 hours Vital signs and Labs for Last 24 Hours: Temp Pulse Resp BP Pulse Ox O2 Del Method 98.7 F 86 18 129/80 100 Room Air 10/17/24 21:58 10/17/24 22:02 10/17/24 22:02 10/17/24 22:02 10/17/24 22:02 10/17/24 22:02 Laboratory Results - last 24 hr 10/17/24 21:53: WBC 11.1 H, RBC 5.16, Hgb 15.2, Hct 42.6, MCV 82.6, MCH 29.5, MCHC 35.7 H, RDW 11.9, Plt Count 329, MPV 11.0 H, Neut % (Auto) 83.7 H, Lymph % (Auto) 11.5, Gage % (Auto) 3.9, Eos % (Auto) 0.2, Baso % (Auto) 0.4, Neut # (Auto) 9.3 H, Lymph # (Auto) 1.3, Gage # (Auto) 0.4, Eos # (Auto) 0.0, Baso # (Auto) 0.0, Sodium 139, Potassium 4.3, Chloride 98, Carbon Dioxide 23, Anion Gap 22.3 H, BUN 19, Creatinine 1.20, Estimated Creat Clear 67, Estimated GFR 70, Est GFR ( Amer) 84, Glucose 291 H, Calcium 10.5 H, Magnesium 1.8, Total Bilirubin 1.1, AST 35, ALT 32, Alkaline Phosphatase 143 H, Total Protein 8.5 H, Albumin 4.9, Globulin 3.6 H, Albumin/Globulin Ratio 1.4, Lipase 51, Acetone Level Small 10/17/24 22:10: VBG pH 7.37, VBG pCO2 39.8, VBG pO2 46.2 H, VBG HCO3 22.2 L, VBG Total CO2 23.5, VBG O2 Saturation 83.1 H, VBG Base Excess -3.1 L, VBG Lactic Acid 2.8 H I & O for Last 24 hours: Intake & Output 10/15/24 10/16/24 10/17/24 10/18/24 23:59 23:59 23:59 23:59 Weight 54.431 kg Constitutional Constitutional: no acute distress *Routine HEENT Exam Head: Present normocephalic Eye: Present EOMI and PERRL ENT: Present mucous membranes moist *Routine Neck Exam Neck: Present supple; Absent lymphadenopathy *Routine Respiratory Exam Respiratory: Present CTA bilaterally *Routine Cardiovascular Exam Cardiovascular: Present RRR *Routine Abdominal Exam Abdominal: Present soft and normoactive bowel sounds; Absent tenderness *Routine Rectal Exam Rectal:: deferred *Routine Genitalia Exam Genitalia:: deferred *Routine Extremities Exam Extremities: Absent cyanosis, clubbing or edema *Routine Skin Exam Skin: Present warm; Absent rash *Routine Neurological Exam Neurological: Present alert and oriented X3 Assessment and Plan *Assessment and plan (1) Lactic acidosis: Status: Acute Category: Medical Code(s): E87.20 - Acidosis, unspecified (2) Diarrhea: Status: Acute Category: Medical Code(s): R19.7 - Diarrhea, unspecified (3) Intractable nausea and vomiting: Status: Acute Category: Medical Code(s): R11.2 - Nausea with vomiting, unspecified (4) Dehydration, moderate: Status: Acute Category: Medical Code(s): E86.0 - Dehydration Plan * Early Diabetic Ketoacidosis (DKA) vs. Hyperglycemic State: * This was a 33-year-old male with type 1 diabetes who presented with abdominal pain, vomiting, and diarrhea starting earlier that day, with weakness and intermittent altered mental status per his significant other; labs showed glucose 291 mg/dL, anion gap 22.3, small acetone, but normal VBG pH 7.37 and HCO3 22.2 mEq/L, suggesting early/compensated DKA rather than fulminant DKA. * Received 2L normal saline and 10 units Lantus (half his usual 20-unit dose) due to poor PO intake; symptoms persisted despite fluids and antiemetics (Zofran 8 mg, Phenergan). * Plan: Continue IV fluids (normal saline 1L bolus, then 250 mL/hr) to correct dehydration and anion gap; Hold further Lantus until stabilized. * Gastroenteritis vs. Hyperemesis Cannabinoid Syndrome: * Patient had profuse nausea, vomiting, and diarrhea all day, with leukocytosis (WBC 11.1 x 10?/?L, 83.7% neutrophils) and elevated lactate (2.8 mmol/L); history of hyperemesis cannabinoid syndrome noted, though cannabis use not confirmed. Normal lipase (51 U/L) ruled out pancreatitis. * Differential included viral/bacterial gastroenteritis vs. cannabinoid- related hyperemesis; diarrhea panel pending. * Plan: Continue 25 mg IV q6h PRN for nausea; obtain stool studies (C. diff, ova/parasites) if diarrhea persists. Trial hot shower for symptom relief if cannabinoid syndrome suspected, * Replace electrolytes (e.g., potassium if <4.0 mEq/L after fluids). * Request UDS * Dehydration and Mild Renal Stress: * BUN 19 mg/dL, creatinine 1.20 mg/dL (GFR 70 mL/min/1.73m?), and elevated lactate (2.8 mmol/L) suggested dehydration from vomiting/diarrhea; received 2L saline with partial response. * Plan: Administer additional 1-2L normal saline based on urine output (>0.5 mL/kg/hr goal); monitor BUN/creatinine. Assess orthostatics if ambulatory status improves. * Leukocytosis: * WBC 11.1 x 10?/?L with neutrophilic predominance (83.7%) likely reflected stress response from dehydration or early DKA; no fever reported, infection less likely but not excluded. * Plan: No antibiotics at this time (negative infectious workup so far); trend WBC with repeat CBC in 12 hours. Consider chest X-ray or UA culture if fever or localizing signs develop. * Type 1 Diabetes Management: * Glucose 291 mg/dL with poor PO intake and vomiting; normal dose 20 units Lantus, received 10 units in ED; no short-acting insulin noted at home. * Plan: Transition Cusic sliding scale; resume Lantus 20 units daily once eating, with short-acting insulin (e.g., aspart 1:15 carb ratio) when PO tolerated. Educate on sick-day management post-discharge. Disposition * Admit to hospital medicine service for management of early DKA (insulin drip, fluids), persistent nausea/vomiting/diarrhea (pending diarrhea panel), and monitoring of type 1 diabetes; inpatient care required due to refractory symptoms and metabolic concerns.
[2024-10-18 01:11] VITALS: BP 114/65; PULSE 68; RESP 20; TEMP 37.2; O2SAT 98
[2024-10-18] MEDS: LACTATED RINGERS 1000ML 1,000 ML 100 ML IV (01:20)
[2024-10-18 01:29] VITALS: BMI 18.8
[2024-10-18 01:33] LABS: POC Glucose,Bedside 170 (70-110)
[2024-10-18] MEDS: humaLOG 100 UNITS/ML 10ML VIAL (SSI) SUBCUT (01:35)
--- NOTE | 2024-10-18 01:54 | PC.NURSE ---
Patient arrived to floor via wheelchair from ED at 01:16.
[2024-10-18 02:01] LABS: Adenovirus F 40/41, stool Not Detected (NotDetected); Astrovirus Not Detected (NotDetected); Campylobacter Not Detected (NotDetected); Clostridium Difficile A/B, PCR Not Detected (NotDetected); Cryptosporidium Not Detected (NotDetected); Cyclospora Cayetanesis Not Detected (NotDetected); Entamoeba histolytica Not Detected (NotDetected); Enteroaggregative E coli Not Detected (NotDetected); Enteropathogenic E coli Not Detected (NotDetected); Enterotoxigenic E coli Not Detected (NotDetected); Giardia lamblia Not Detected (NotDetected); Norovirus Not Detected (NotDetected); Plesimonas Shigalloides, PCR Not Detected (NotDetected); Rotavirus A Not Detected (NotDetected); Salmonella, PCR Not Detected (NotDetected); Sapovirus Not Detected (NotDetected); Shiga-like toxin E coli Not Detected (NotDetected); Shigella Enterovasive E coli Not Detected (NotDetected); Vibrio Cholerae Not Detected (NotDetected); Vibrio, PCR Not Detected (NotDetected); Yersinia Entercolitica, PCR Not Detected (NotDetected)
[2024-10-18] MEDS: PROMETHAZINE HCL 25MG/ML 1ML VIAL 25 MG IV (02:05)
[2024-10-18 02:22] LABS: Reflex Lactic Add Lactic Reflex
[2024-10-18 03:23] LABS: Lactic Acid Follow Up (RFLX 1) 0.6 mmol/L (0.7-2.1)
[2024-10-18 04:00] VITALS: BP 137/76; PULSE 94; RESP 17; TEMP 36.7; O2SAT 95
--- NOTE | 2024-10-18 04:45 | PC.NURSE ---
Admission assessments and home medication reconciliation were completed by me this shift. Patient has not urinated since ambulating to the bathroom to have a bowel movement (was an unmeasured void) this shift; a urine sample has not been able to be collected thus far. The patient was encouraged by staff to use the urinal at the bedside for voiding needs + to collect a urine sample; patient verbalized an understanding. Stool sample was observed to be soft and formed; no diarrhea presented. At this time, the patient is resting in bed without any further complaints. Eyes are closed and respirations are even/unlabored on room air. Phenergan was administered per MAR for nausea/vomiting relief. Patient tolerated PO water intake very well. Lactated Ringers continue to infuse at 100 mL/hr. Auscultation of lungs, heart, and bowels were within normal findings. Heart rate slightly tachycardic this shift; other vital signs stable. Glucose checks to be performed every 6 hours. Call light within reach.
[2024-10-18 05:50] LABS: Basophils % 0.2 % (0.1-2.0); Hematocrit 35.2 % (42.0-52.0); Lymphocytes # 1.4 K/mm3 (0.7-4.5); Lymphocytes % 12.8 % (10-50); Mean Corpuscular HGB Conc 35.5 g/dL (31.8-35.4); Mean Corpuscular Hemoglobin 29.5 pg (27.0-31.2); Mean Platelet Volume 10.9 fl (7.4-10.4); Monocytes # 0.5 K/mm3 (0.1-1.0); Monocytes % 4.9 % (1.7-9.3); Neutrophils # 8.9 K/mm3 (1.8-7.8); Neutrophils % 81.6 % (37.0-80.0); Platelet Count 284 K/mm3 (142-424); Red Blood Count 4.24 M/mm3 (4.60-6.20); Red Cell Distribution Width 12.1 % (11.5-17.5); White Blood Count 10.9 K/mm3 (4.8-10.8)
[2024-10-18 05:54] LABS: Hemoglobin 12.5 g/dL (14.1-18.0)
[2024-10-18 05:55] LABS: Chloride 104 mmol/L (98-107); Sodium 139 mmol/L (136-145)
[2024-10-18 05:56] LABS: Potassium 3.9 mmoL/L (3.5-5.1)
[2024-10-18 05:59] LABS: Anion Gap 15.9 mEq/L (5-15); Blood Urea Nitrogen 18 mg/dl (9-20); Calcium 9.4 mg/dl (8.4-10.2); Carbon Dioxide 23 mmol/L (22.0-30.0); Creatinine Clearance Estimated 94 mL/min (50-200); Estimated Glomerular Filt Rate 86 ml/min (>60); GFR (African American) 104 ML/MIN (>60); Glucose 113 mg/dl (74-100); Magnesium 1.7 mg/dl (1.6-2.3)
[2024-10-18 06:10] LABS: POC Glucose,Bedside 104 (70-110)
[2024-10-18 08:00] VITALS: BP 126/73; PULSE 118; RESP 18; TEMP 37.2; O2SAT 97
--- NOTE | 2024-10-18 12:11 | EXP.DC.SUM ---
General Admission date:: 10/18/24 HPI HPI HPI: This was a 33-year-old male with a past medical history of type 1 diabetes who presented to the emergency department with complaints of abdominal pain and vomiting that began earlier that day around noon. He also experienced diarrhea throughout the day and reported feeling very weak. He was unsure if he had a fever. His significant other noted that he had been ?in and out? that day, suggesting altered mental status or lethargy, and confirmed his type 1 diabetes, though the duration of the condition was unclear from her statement. No other symptoms were reported at the time. On arrival, he was in acute distress with profuse nausea and vomiting but remained hemodynamically stable. Laboratory results revealed leukocytosis with a white blood cell count of 11.1 x 10?/?L, elevated glucose at 291 mg/dL, an anion gap of 22.3, and a small amount of acetone, raising concern for early diabetic ketoacidosis (DKA). However, a venous blood gas (VBG) showed a normal pH of 7.37, HCO3 of 22.2 mEq/L (mildly low), and lactate of 2.8 mmol/L (elevated), suggesting a compensated or early metabolic process rather than fulminant DKA. Other findings included normal lipase (51 U/L), mildly elevated creatinine (1.20 mg/dL), and normal liver enzymes except for an elevated alkaline phosphatase (143 U/L). He received 2 liters of normal saline and 8 mg of Zofran initially for treatment, followed later by IV Phenergan and additional fluids, but continued to have emesis. An ECG was performed and interpreted, though specific findings were not detailed beyond ruling out acute changes. The differential diagnosis included gastroenteritis, early DKA, pancreatitis, and possibly hyperemesis cannabinoid syndrome (noted in his history). Upon reassessment by the assuming provider, he remained stable but uncomfortable, with persistent nausea, vomiting, diarrhea, and diffuse abdominal discomfort. He received 10 units of Lantus (half his usual 20-unit dose) due to elevated glucose and poor oral intake, avoiding hypoglycemia risk. A diarrhea panel was pending. Despite multiple interventions (fluids, antiemetics), his symptoms persisted, prompting the decision for hospital admission. Care was initially handed off at shift change, with ultimate disposition detailed later. Hospital Course Hospital Course Hospital Course: Sunny Schwab is a 33-year-old male with a medical history significant for type 1 diabetes who presented with intractable nausea/vomiting/diarrhea and was admitted for the same in the setting of cannabinoid hyperemesis syndrome. #Nausea/vomiting/diarrhea #Cannabinoid hyperemesis syndrome ? Symptoms improved with IV fluid resuscitation, antiemetics. ? No signs of DKA. VBG pH normal, blood sugar is normal. Electrolytes stable. ? Strongly encourage patient to reduce and stop cannabinoid use especially with a history of DKA. Patient is agreeable. ? Discharged with Zofran. #Type 1 diabetes #Peripheral neuropathy ? Hemoglobin A1c 7.0. ? Continue home Lantus 20 units twice daily, with sliding scale. Gabapentin 300 mg twice daily. Exam Data for Last 24 hours Vital signs and Labs for Last 24 Hours: Temp Pulse Resp BP Pulse Ox O2 Del Method 99 F 118 H 18 126/73 97 Room Air 10/18/24 08:00 10/18/24 08:00 10/18/24 08:00 10/18/24 08:00 10/18/24 08:00 10/18/24 11:00 Laboratory Results - last 24 hr 10/17/24 01:36: Stl Aeromonas (PCR) Not detected, Stl C. cayetanensis PCR Not detected, Stool Rotavirus (PCR) Not detected, Stl Adenov F 40/41 PCR Not detected, Stool Astrovirus (PCR) Not detected, Stool Campylobacter PCR Not detected, Stl C.difficile Tox PCR Not detected, Stool Cryptosporidium PCR Not detected, Stl E.coli Shiga Tox PCR Not detected, Stool E coli O157 PCR Not detected, Stl Enterotoxigenic E PCR Not detected, Stool EPEC (PCR) Not detected, Stool EAEC (PCR) Not detected, Stl E. histolytica PCR Not detected, Stool Giardia Lamblia PCR Not detected, Stool Salmonella PCR Not detected, Stool Sapovirus (PCR) Not detected, Stl P. shigelloides PCR Not detected, Stl Shigella/EIEC PCR Not detected, St Y.enterocolitica PCR Not detected, Stool Vibrio (PCR) Not detected, Stl Vibrio cholerae PCR Not detected, Stl Norovirus GI/GII PCR Not detected 10/17/24 21:53: WBC 11.1 H, RBC 5.16, Hgb 15.2, Hct 42.6, MCV 82.6, MCH 29.5, MCHC 35.7 H, RDW 11.9, Plt Count 329, MPV 11.0 H, Neut % (Auto) 83.7 H, Lymph % (Auto) 11.5, [place] % (Auto) 3.9, Eos % (Auto) 0.2, Baso % (Auto) 0.4, Neut # (Auto) 9.3 H, Lymph # (Auto) 1.3, [place] # (Auto) 0.4, Eos # (Auto) 0.0, Baso # (Auto) 0.0, Sodium 139, Potassium 4.3, Chloride 98, Carbon Dioxide 23, Anion Gap 22.3 H, BUN 19, Creatinine 1.20, Estimated Creat Clear 67, Estimated GFR 70, Est GFR ( Amer) 84, Glucose 291 H, Calcium 10.5 H, Magnesium 1.8, Total Bilirubin 1.1, AST 35, ALT 32, Alkaline Phosphatase 143 H, Total Protein 8.5 H, Albumin 4.9, Globulin 3.6 H, Albumin/Globulin Ratio 1.4, Lipase 51, Acetone Level Small 10/17/24 22:10: VBG pH 7.37, VBG pCO2 39.8, VBG pO2 46.2 H, VBG HCO3 22.2 L, VBG Total CO2 23.5, VBG O2 Saturation 83.1 H, VBG Base Excess -3.1 L, VBG Lactic Acid 2.8 H 10/18/24 01:25: POC Glucose 170 H 10/18/24 03:05: Lactate 0.6 L 10/18/24 05:14: WBC 10.9 H, RBC 4.24 L, Hgb 12.5 L D, Hct 35.2 L, MCV 83.0, MCH 29.5, MCHC 35.5 H, RDW 12.1, Plt Count 284, MPV 10.9 H, Neut % (Auto) 81.6 H, Lymph % (Auto) 12.8, [place] % (Auto) 4.9, Eos % (Auto) 0.0 L, Baso % (Auto) 0.2, Neut # (Auto) 8.9 H, Lymph # (Auto) 1.4, [place] # (Auto) 0.5, Eos # (Auto) 0.0, Baso # (Auto) 0.0, Sodium 139, Potassium 3.9, Chloride 104, Carbon Dioxide 23, Anion Gap 15.9 H, BUN 18, Creatinine 1.00, Estimated Creat Clear 94, Estimated GFR 86, Est GFR ( Amer) 104 D, Glucose 113 H D, Calcium 9.4, Magnesium 1.7 10/18/24 06:03: POC Glucose 104 I & O for Last 24 hours: Intake & Output 10/15/24 10/16/24 10/17/24 10/18/24 23:59 23:59 23:59 23:59 Intake Total / Output Total 0 / 0 Balance / Weight 54.431 kg 62.959 kg Constitutional Constitutional: no acute distress *Routine HEENT Exam Head: Present normocephalic Eye: Present EOMI and PERRL ENT: Present mucous membranes moist *Routine Neck Exam Neck: Present supple; Absent lymphadenopathy *Routine Respiratory Exam Respiratory: Present CTA bilaterally *Routine Cardiovascular Exam Cardiovascular: Present RRR *Routine Abdominal Exam Abdominal: Present soft and normoactive bowel sounds; Absent tenderness *Routine Extremities Exam Extremities: Absent cyanosis, clubbing or edema *Routine Skin Exam Skin: Present warm; Absent rash *Routine Neurological Exam Neurological: Present alert and oriented X3 Results Data Completed and Pending Labs on day of discharge: Labs from last 24 hours 10/18/24 10/18/24 10/18/24 06:03 05:14 03:05 WBC 10.9 H RBC 4.24 L Hgb 12.5 L D Hct 35.2 L MCV 83.0 MCH 29.5 MCHC 35.5 H RDW 12.1 Plt Count 284 MPV 10.9 H Neut % (Auto) 81.6 H Lymph % (Auto) 12.8 [place] % (Auto) 4.9 Eos % (Auto) 0.0 L Baso % (Auto) 0.2 Neut # (Auto) 8.9 H Lymph # (Auto) 1.4 [place] # (Auto) 0.5 Eos # (Auto) 0.0 Baso # (Auto) 0.0 VBG pH VBG pCO2 VBG pO2 VBG HCO3 VBG Total CO2 VBG O2 Saturation VBG Base Excess VBG Lactic Acid Sodium 139 Potassium 3.9 Chloride 104 Carbon Dioxide 23 Anion Gap 15.9 H BUN 18 Creatinine 1.00 Estimated Creat Clear 94 Estimated GFR 86 Est GFR ( Amer) 104 D Glucose 113 H D POC Glucose 104 Lactate 0.6 L Calcium 9.4 Magnesium 1.7 Total Bilirubin AST ALT Alkaline Phosphatase Total Protein Albumin Globulin Albumin/Globulin Ratio Lipase Stl Aeromonas (PCR) Stl C. cayetanensis PCR Stool Rotavirus (PCR) Stl Adenov F 40/ PCR Stool Astrovirus (PCR) Stool Campylobacter PCR Stl C.difficile Tox PCR Stool Cryptosporidium PCR Stl E.coli Shiga Tox PCR Stool E coli O157 PCR Stl Enterotoxigenic E PCR Stool EPEC (PCR) Stool EAEC (PCR) Stl E. histolytica PCR Stool Giardia Lamblia PCR Stool Salmonella PCR Stool Sapovirus (PCR) Stl P. shigelloides PCR Stl Shigella/EIEC PCR St Y.enterocolitica PCR Stool Vibrio (PCR) Stl Vibrio cholerae PCR Stl Norovirus GI/GII PCR Acetone Level 10/18/24 10/17/24 10/17/24 01:25 22:10 21:53 WBC 11.1 H RBC 5.16 Hgb 15.2 Hct 42.6 MCV 82.6 MCH 29.5 MCHC 35.7 H RDW 11.9 Plt Count 329 MPV 11.0 H Neut % (Auto) 83.7 H Lymph % (Auto) 11.5 [place] % (Auto) 3.9 Eos % (Auto) 0.2 Baso % (Auto) 0.4 Neut # (Auto) 9.3 H Lymph # (Auto) 1.3 [place] # (Auto) 0.4 Eos # (Auto) 0.0 Baso # (Auto) 0.0 VBG pH 7.37 VBG pCO2 39.8 VBG pO2 46.2 H VBG HCO3 22.2 L VBG Total CO2 23.5 VBG O2 Saturation 83.1 H VBG Base Excess -3.1 L VBG Lactic Acid 2.8 H Sodium 139 Potassium 4.3 Chloride 98 Carbon Dioxide 23 Anion Gap 22.3 H BUN 19 Creatinine 1.20 Estimated Creat Clear 67 Estimated GFR 70 Est GFR ( Amer) 84 Glucose 291 H POC Glucose 170 H Lactate Calcium 10.5 H Magnesium 1.8 Total Bilirubin 1.1 AST 35 ALT 32 Alkaline Phosphatase 143 H Total Protein 8.5 H Albumin 4.9 Globulin 3.6 H Albumin/Globulin Ratio 1.4 Lipase 51 Stl Aeromonas (PCR) Stl C. cayetanensis PCR Stool Rotavirus (PCR) Stl Adenov F 40/41 PCR Stool Astrovirus (PCR) Stool Campylobacter PCR Stl C.difficile Tox PCR Stool Cryptosporidium PCR Stl E.coli Shiga Tox PCR Stool E coli O157 PCR Stl Enterotoxigenic E PCR Stool EPEC (PCR) Stool EAEC (PCR) Stl E. histolytica PCR Stool Giardia Lamblia PCR Stool Salmonella PCR Stool Sapovirus (PCR) Stl P. shigelloides PCR Stl Shigella/EIEC PCR St Y.enterocolitica PCR Stool Vibrio (PCR) Stl Vibrio cholerae PCR Stl Norovirus GI/GII PCR Acetone Level Small 10/17/24 01:36 WBC RBC Hgb Hct MCV MCH MCHC RDW Plt Count MPV Neut % (Auto) Lymph % (Auto) [place] % (Auto) Eos % (Auto) Baso % (Auto) Neut # (Auto) Lymph # (Auto) [place] # (Auto) Eos # (Auto) Baso # (Auto) VBG pH VBG pCO2 VBG pO2 VBG HCO3 VBG Total CO2 VBG O2 Saturation VBG Base Excess VBG Lactic Acid Sodium Potassium Chloride Carbon Dioxide Anion Gap BUN Creatinine Estimated Creat Clear Estimated GFR Est GFR ( Amer) Glucose POC Glucose Lactate Calcium Magnesium Total Bilirubin AST ALT Alkaline Phosphatase Total Protein Albumin Globulin Albumin/Globulin Ratio Lipase Stl Aeromonas (PCR) Not detected Stl C. cayetanensis PCR Not detected Stool Rotavirus (PCR) Not detected Stl Adenov F 40/41 PCR Not detected Stool Astrovirus (PCR) Not detected Stool Campylobacter PCR Not detected Stl C.difficile Tox PCR Not detected Stool Cryptosporidium PCR Not detected Stl E.coli Shiga Tox PCR Not detected Stool E coli O157 PCR Not detected Stl Enterotoxigenic E PCR Not detected Stool EPEC (PCR) Not detected Stool EAEC (PCR) Not detected Stl E. histolytica PCR Not detected Stool Giardia Lamblia PCR Not detected Stool Salmonella PCR Not detected Stool Sapovirus (PCR) Not detected Stl P. shigelloides PCR Not detected Stl Shigella/EIEC PCR Not detected St Y.enterocolitica PCR Not detected Stool Vibrio (PCR) Not detected Stl Vibrio cholerae PCR Not detected Stl Norovirus GI/GII PCR Not detected Acetone Level DS: Diagnosis Discharge Diagnosis (1) Lactic acidosis: Status: Acute Code(s): E87.20 - Acidosis, unspecified (2) Diarrhea: Status: Acute Code(s): R19.7 - Diarrhea, unspecified (3) Intractable nausea and vomiting: Status: Acute Code(s): R11.2 - Nausea with vomiting, unspecified (4) Dehydration, moderate: Status: Acute Code(s): E86.0 - Dehydration Meds Home Medications and Allergies Home Medications ?Medication ?Instructions ?Recorded ?Confirmed ?Type insulin regular human 100 unit/mL 10 - 15 unit (0.1 - 0.15 mL) SQ 09/04/23 10/18/24 Rx injection solution QID Diabetes 30 days #10 mL blood sugar diagnostic (True #100 ea 09/05/23 10/18/24 Rx Metrix Glucose Test Strip) gabapentin 300 mg capsule 300 mg PO BID Pain 30 days #60 caps 01/27/24 10/18/24 Rx insulin glargine 100 unit/mL (3 20 unit (0.2 mL) SQ BID Diabetes 03/16/24 10/18/24 Rx mL) subcutaneous pen (Basaglar #40 mL KwikPen U-100 Insulin) ondansetron 4 mg disintegrating 4 mg PO Q8H PRN nausea and 10/18/24 Rx tablet vomiting #14 tabs New Prescriptions to Start Prescriptions: ondansetron Bautista Hammonds Allergies Allergy/AdvReac Type Severity Reaction Status Date / Time metoclopramide AdvReac Anxiety Verified 01/27/24 10:19 Discharge Plan Disposition Patient Disposition: Home, Self-Care Condition: Fair Follow up Plan Prescriptions/Medication Reconciliation: New ondansetron 4 mg tablet,disintegrating 4 mg PO Q8H PRN (Reason: nausea and vomiting) Qty: 14 0RF Continued insulin regular human 100 unit/mL solution 10 - 15 unit SQ QID 30 Days Qty: 10 4RF gabapentin 300 mg capsule 300 mg PO BID 30 Days Qty: 60 1RF (DME) True Metrix Glucose Test Strip Strip See Rx Instructions .Route Qty: 100 3RF Rx Instructions: Test up to 3x daily insulin glargine [Basaglar KwikPen U-100 Insulin] 100 unit/mL (3 mL) insulin pen 20 unit SQ BID Qty: 40 0RF Problem Reconciliation Problems Reviewed?: Yes Patient Discharge Instructions Stand Alone Forms: [facility] Work Release Patient Instructions: DI for Abdominal Pain-Adult Print Language: Malay Providers Primary Care Provider: Provider,Referral Admit Provider: Bautista Hammonds Attending Provider: Bautista Hammonds
--- NOTE | 2024-10-20 10:37 | SW/DCPLANNER ---
Phoned patient x2. Patients phone is not available to accept messages at this time. Ade Jacobson
== END 2024-10-18 12:46 | disposition home or self-care (01) ==
LOC: ER 10-18 00:01 → 2ND 10-18 00:27
PROVIDERS: Emergency Medicine; Nurse Practitioner; Nurse Practitioner Family; Admitting Provider Student in an Organized Health Care Education/Training Program; Emergency Provider Student in an Organized Health Care Education/Training Program; Visit Provider Student in an Organized Health Care Education/Training Program
DX: E10.10 Type 1 diabetes mellitus with ketoacidosis without coma (principal); Z79.4 Long term (current) use of insulin; Z79.899 Other long term (current) drug therapy; R11.2 Nausea with vomiting, unspecified; F12.90 Cannabis use, unspecified, uncomplicated; E86.0 Dehydration; E55.9 Vitamin D deficiency, unspecified
CPT/HCPCS: 36415; 80048; 80053; 82009; 82803; 82962; 83605; 83690; 83735; 85025; 87506; 93005; 99285; G0378; J1885; J2405; J2550; J7030; J7120; S0028